=== PATIENT | male | born 1965 | race Two or more races ===

== ENCOUNTER 2016-11-11 19:31 | Inpatient (IN) | payer OTHER ==
[2016-11-11 22:02] VITALS: BMI 19.1
--- NOTE | 2016-11-11 22:06 | HP ---
CIWA Score - CIWA Score Nausea/Vomitin-Mild Nausea/No Vomiting Muscle Tremors: 3 Anxiety: 4-Mod. Anxious/Guarded Agitation: 4-Moderately Restless Paroxysmal Sweats: 2 Orientation: 1-Uncertain about Date Tacttile Disturbances: 1-Very Mild Itch/Numbness Auditory Disturbances: 0-None Visual Disturbances: 1-Very Mild Sensitivity Headache: 0-None Present CIWA-Ar Total Score: 17 Admission ROS BHS - HPI Chief Complaint: WITHDRAWAL SYMPTOMS Allergies/Adverse Reactions: Allergies Allergy/AdvReac Type Severity Reaction Status Date / Time No Known Allergies Allergy Verified 11/11/16 22:03 History of Present Illness: 51 Y.O. MAN WITH AN EXTENSIVE HISTORY OF ALCOHOL DEPENDENCE IS SEEKING DETOX. HE REPORTS HE HAS COMPLETED DETOX AND REHAB BEFORE AT OTHER FACILITIES BUT DOES NOT HAVE A SIGNIFICANT PERIOD OF SOBRIETY. Exam Limitations: Intoxication - Ebola screening Have you traveled outside of the country in the last 21 days: No Have you had contact with anyone from an Ebola affected area: No Do you have a fever: No - Review of Systems Constitutional: Chills, Diaphoresis, Loss of Appetite, Changes in sleep, Unintentional Wgt. Loss EENT: reports: Blurred Vision, Double Vision, Tearing Respiratory: reports: Wheezing Cardiac: reports: No Symptoms Reported GI: reports: Poor Appetite : reports: No Symptoms Reported Musculoskeletal: reports: Back Pain, Joint Pain, Muscle Pain, Muscle Weakness Integumentary: reports: No Symptoms Reported Neuro: reports: Tremors, Weakness, Unsteady Gait Endocrine: reports: No Symptoms Reported Hematology: reports: No Symptoms Reported Psychiatric: reports: Depressed Other Systems: Reviewed and Negative Patient History - Patient Medical History Hx Anemia: No Hx Asthma: Yes Hx Chronic Obstructive Pulmonary Disease (COPD): No Hx Cancer: No Hx Cardiac Disorders: No Hx Congestive Heart Failure: No Hx Hypertension: No Hx Hypercholesterolemia: No Hx Pacemaker: No HX Cerebrovascular Accident: No Hx Seizures: No Hx Dementia: No Hx Diabetes: No Hx Gastrointestinal Disorders: No Hx Liver Disease: No Hx Genitourinary Disorders: No Hx Sexually Transmitted Disorders: No Hx Renal Disease (ESRD): No Hx Thyroid Disease: No Hx Human Immunodeficiency Virus (HIV): Yes Hx Hepatitis C: No Hx Depression: Yes Hx Suicide Attempt: No Hx Bipolar Disorder: No Hx Schizophrenia: No - Patient Surgical History Past Surgical History: Yes Hx Neurologic Surgery: No Hx Cataract Extraction: No Hx Cardiac Surgery: No Hx Lung Surgery: No Hx Breast Surgery: No Hx Breast Biopsy: No Hx Abdominal Surgery: Yes (2 HERNIA REPAIR SX ) Hx Appendectomy: No Hx Cholecystectomy: No Hx Genitourinary Surgery: No Hx Orthopedic Surgery: Yes (LEFT SHOULDER ROTATOR CUFF SX ) Anesthesia Reaction: No - PPD History Previous Implant?: No Documented Results: Negative w/o proof Implanted On Prior [facility] Admission?: No PPD to be Administered?: Yes - Reproductive History Patient is a Female of Child Bearing Age (11 -55 yrs old): No - Smoking Cessation Smoking history: Current every day smoker Have you smoked in the past 12 months: Yes Aproximately how many cigarettes per day: 20 Hx Chewing Tobacco Use: No Initiated information on smoking cessation: Yes 'Breaking Loose' booklet given: 11/11/16 - Substance & Tx. History Hx Alcohol Use: Yes Hx Substance Use: No Substance Use Type: Alcohol Hx Substance Use Treatment: Yes (DETOX AND REHAB ) - Substances Abused Alcohol Route: Oral Frequency: Daily Amount used: 2-3 PINTS OF LIQUOR Age of first use: 16 Date of Last Use: 11/11/16 Family Disease History - Family Disease History Family Disease History: Respiratory: Mother (ASTHMA ) Admission Physical Exam BHS - Vital Signs Vital Signs: Last Vital Signs Temp Pulse Resp BP Pulse Ox 98.2 F 97 H 20 121/74 11/11/16 21:59 11/11/16 21:59 11/11/16 21:59 11/11/16 21:59 - Physical General Appearance: Yes: Intoxicated HEENTM: Yes: Normocephalic, Normal Voice Respiratory: Yes: Chest Non-Tender, No Respiratory Distress, No Accessory Muscle Use, Wheezing, Expiration Neck: Yes: No masses,lesions,Nodules Breast: Yes: Breast Exam Deferred Cardiology: Yes: Regular Rhythm, Regular Rate Abdominal: Yes: Normal Bowel Sounds, Non Tender, Flat, Soft Genitourinary: Yes: Other (NO COMPLAINTS REPORTED) Back: Yes: Normal Inspection Musculoskeletal: Yes: Back pain Extremities: Yes: Normal Inspection, Normal Range of Motion, Non-Tender, Tremors Neurological: Yes: Alert, Confused, Disoriented (TO LOCATION) Integumentary: Yes: Normal Color, Dry, Warm Lymphatic: Yes: Within Normal Limits - Diagnostic (1) Alcohol dependence with uncomplicated withdrawal Current Visit: Yes Status: Chronic (2) HIV (human immunodeficiency virus infection) Current Visit: Yes Status: Chronic (3) Asthma Current Visit: Yes Status: Chronic (4) Nicotine dependence Current Visit: Yes Status: Chronic Cleared for Admission S - Detox or Rehab [facility] Level of Care: Medically Managed Detox Regimen/Protocol: Librsrinivasa
[2016-11-11] MEDS ORDERED: diphenhydrAMINE HCL 50 MG CAPSULE PO PRN (22:36)
[2016-11-11] MEDS ORDERED: P-EPHED 60MG/TRIPROLIDI 2.5MG TABLET PO PRN (22:36)
[2016-11-11] MEDS ORDERED: guaiFENesin/D-METHORPHAN HB 10 ML UNIT-DOSE CUPS PO PRN (22:36)
[2016-11-11] MEDS ORDERED: MENTHOL/PHENOL 1 EACH UD MM PRN (22:36)
[2016-11-11] MEDS ORDERED: MAGNESIUM CITRATE 300 ML BOTTLE PO PRN (22:36)
[2016-11-11] MEDS ORDERED: MAGNESIUM HYDROX 2400MG/30ML ORAL SUSPENSION 30 ML CUP PO PRN (22:36)
[2016-11-11] MEDS ORDERED: NICOTINE POLACRILEX 4 MG GUM BUC PRN (22:36)
[2016-11-11] MEDS ORDERED: MAG HYDROX/AL HYDROX/SIMETH 30 ML UNIT-DOSE CUP PO PRN (22:36)
[2016-11-11] MEDS ORDERED: hydrOXYzine PAMOATE 50 MG CAPSULE (FP) PO PRN (22:36)
[2016-11-11] MEDS ORDERED: chlordiazePOXIDE HCL 25 MG CAPSULE PO PRN (22:36)
[2016-11-11] MEDS ORDERED: LOPERAMIDE HCL 2 MG CAPSULE PO PRN (22:36)
[2016-11-11] MEDS ORDERED: ACETAMINOPHEN 325 MG TABLET (FP) PO PRN (22:36)
[2016-11-11] MEDS ORDERED: chlordiazePOXIDE HCL 25 MG CAPSULE PO ONE (22:36)
[2016-11-11] MEDS: chlordiazePOXIDE HCL 25 MG CAPSULE PO SCH (23:03)
[2016-11-12] MEDS: chlordiazePOXIDE HCL 25 MG CAPSULE PO SCH ×4 (05:49→22:36)
--- NOTE | 2016-11-12 08:58 | CONSULT ---
[facility] Psychiatric Consult - Data Date of interview: 11/12/16 Admission source: [facility] Identifying data: This is 51 years old male with unclear past psychiatric hospitalization history intoxicated with: Alcohol and Nicotine Substance Abuse History: - Smoking Cessation. Smoking history: Current every day smoker. Have you smoked in the past 12 months: Yes. Aproximately how many cigarettes per day: 20. Hx Chewing Tobacco Use: No. Initiated information on smoking cessation: Yes. 'Breaking Loose' booklet given: 11/11/16. - Substance & Tx. History. Hx Alcohol Use: Yes. Hx Substance Use: No. Substance Use Type : Alcohol. Hx Substance Use Treatment: Yes (DETOX AND REHAB ). - Substances Abused. Alcohol. Route: Oral. Frequency: Daily. Amount used: 2-3 PINTS OF LIQUOR. Age of first use: 16. Date of Last Use: 11/11/16 Medical History: Asthma, HIV+, Psychiatric History: Reports anxiety and depression history. Reports no medications taking prior to admission Physical/Sexual Abuse/Trauma History: Denies Additional Comment: Observation. Detox unit care Mental Status Exam - Mental Status Exam Alert and Oriented to: Person Cognitive Function: Fair Patient Appearance: Unkempt Mood: Sad Affect: Flat Patient Behavior: Sedated Speech Pattern: Delayed Voice Loudness: Mildly Soft/Quiet Thought Process: Circumstantial Thought Disorder: Being Controlled Hallucinations: Denies Suicidal Ideation: Denies Homicidal Ideation: Denies Insight/Judgement: Fair Sleep: Difficulty falling asleep Appetite: Weight loss Muscle strength/Tone: Moderate Hypotonicity Gait/Station: Shuffling Additional Comments: Observation. Detox unit care Psychiatric Findings - Problem List ([place] 1, 2,3) (1) Alcohol dependence with uncomplicated withdrawal Current Visit: Yes Status: Chronic (2) Nicotine dependence Current Visit: Yes Status: Chronic (3) Drug-induced mood disorder Current Visit: Yes Status: Suspected - Initial Treatment Plan Initial Treatment Plan: Observation. Detox unit care
[2016-11-12] MEDS: predniSONE 20 MG TABLET (UD) PO SCH (10:13)
[2016-11-12] MEDS: SULFAMETHOXAZOLE/TRIMETHOPRIM 800MG/160MG D.S. TABLET PO SCH (10:13)
[2016-11-12] MEDS: AZITHROMYCIN 250 MG TABLET (FP) PO SCH (10:13)
[2016-11-12] MEDS: PRENATAL VITAMINS W/ FOLIC ACID TABLET (FP) PO SCH (10:13)
[2016-11-12] MEDS: EFAVIRENZ 600 MG TABLET PO SCH (10:13)
[2016-11-12 10:15] LABS: MCH 27.2 pg (25.7-33.7); MCHC 31.7 g/dl (32.0-35.9); MEAN CELL VOLUME 85.7 fl (80-96); MEAN PLT VOLUME 7.2 fl (7.5-11.1); PLATELET COUNT 283 K/MM3 (134-434); RDW 19.7 % (11.9-15.9); WHITE BLOOD COUNT 8.2 K/mm3 (4.0-10.0)
[2016-11-12] MEDS: EMTRICITABINE 200MG/TENOFOVIR 300MG PO SCH (10:16)
[2016-11-12] MEDS: NICOTINE 21 MG/24 HOURS TOPICAL PATCH TD SCH (10:17)
[2016-11-12 10:35] LABS: ALBUMIN 2.9 g/dl (3.4-5.0); ALK PHOS 105 U/L (45-117); ANION GAP 11 (8-16); BILIRUBIN,TOTAL 0.2 mg/dL (0.2-1.0); CALCIUM 8.3 mg/dL (8.5-10.1); CO2 24 mmol/L (21-32); CREATININE 0.8 mg/dL (0.7-1.3); GLUCOSE,RANDOM 74 mg/dL (74-106); SGOT/AST 51 U/L (15-37); SGPT/ALT 56 U/L (12-78); TOT PROT 6.4 g/dl (6.4-8.2)
--- NOTE | 2016-11-12 10:37 | PN ---
S CIWA - CIWA Score Nausea/Vomitin-No Nausea/No Vomiting Muscle Tremors: 4-Moderate,w/Arms Extend Anxiety: 4-Mod. Anxious/Guarded Agitation: 4-Moderately Restless Paroxysmal Sweats: 4-Forehead w/Sweat Beads Orientation: 0-Oriented Tacttile Disturbances: 0-None Auditory Disturbances: 0-None Visual Disturbances: 0-None Headache: 1-Very Mild CIWA-Ar Total Score: 17 BHS Progress Note (SOAP) Subjective: tired sweats irritable interrupted sleep agitation body aches Objective: 11/12/16 10:36 Vital Signs Temperature 96.3 F L 11/12/16 09:51 Pulse Rate 101 H 11/12/16 09:51 Respiratory Rate 18 11/12/16 09:51 Blood Pressure 104/70 11/12/16 09:51 O2 Sat by Pulse Oximetry (%) Laboratory Tests 11/12/16 07:00 WBC 8.2 RBC 3.98 L Hgb 10.8 L Hct 34.2 L MCV 85.7 MCHC 31.7 L RDW 19.7 H Plt Count 283 MPV 7.2 L labs pending awake/alert ambulating no acute distress Assessment: 11/12/16 10:36 withdrawal sx Plan: continue detox increase fluids labs pending
[2016-11-12 13:06] LABS: URINE APPEARANCE CLOUDY; URINE BILIRUBIN NEGATIVE (NEGATIVE); URINE COLOR YELLOW; URINE GLUCOSE (UA) NEGATIVE (NEGATIVE); URINE KETONE NEGATIVE (NEGATIVE); URINE NITRITE NEGATIVE (NEGATIVE); URINE UROBILINOGEN NEGATIVE E.U./dl (0.2-1.0)
[2016-11-12 13:10] LABS: URINE BLOOD 2+ (NEGATIVE); URINE LEUK ESTERASE 3+ (NEGATIVE); URINE PROTEIN 1+ (NEGATIVE)
[2016-11-12 13:12] LABS: URINE BACTERIA FEW /hpf (NONE SEEN); URINE MUCUS RARE; URINE RBC 62 /hpf (0-3); URINE WBC 125 /hpf (3-5)
--- NOTE | 2016-11-12 13:19 | EKG ---
Test Reason : Blood Pressure : / mmHG Vent. Rate : 088 BPM Atrial Rate : 088 BPM P-R Int : 154 ms QRS Dur : 104 ms QT Int : 350 ms P-R-T Axes : 080 045 063 degrees QTc Int : 423 ms NORMAL SINUS RHYTHM POSSIBLE LEFT ATRIAL ENLARGEMENT BORDERLINE ECG NO PREVIOUS ECGS AVAILABLE Confirmed by GENE MAIER MD ([id number]) on 11/12/2016 1:19:27 PM Referred By: Confirmed By:GENE MAIER MD
[2016-11-12] MEDS: IBUPROFEN 400 MG TABLET (FP) PO PRN (18:21)
[2016-11-12] MEDS: THIAMINE HCL 100 MG TABLET (FP) PO SCH (22:37)
[2016-11-13] MEDS: chlordiazePOXIDE HCL 25 MG CAPSULE PO SCH ×3 (05:32→17:58)
[2016-11-13] MEDS: IBUPROFEN 400 MG TABLET (FP) PO PRN (05:35)
--- NOTE | 2016-11-13 10:16 | PN ---
[facility] CIWA - CIWA Score Nausea/Vomitin-No Nausea/No Vomiting Muscle Tremors: 4-Moderate,w/Arms Extend Anxiety: 3 Agitation: 3 Paroxysmal Sweats: 3 Orientation: 0-Oriented Tacttile Disturbances: 0-None Auditory Disturbances: 0-None Visual Disturbances: 0-None Headache: 1-Very Mild CIWA-Ar Total Score: 14 S Progress Note (SOAP) Subjective: body aches sweats headache sweats shakes Objective: 11/13/16 10:16 Vital Signs Temperature 95.9 F L 11/13/16 09:30 Pulse Rate 105 H 11/13/16 09:30 Respiratory Rate 18 11/13/16 09:30 Blood Pressure 134/77 11/13/16 09:30 O2 Sat by Pulse Oximetry (%) Laboratory Tests 11/12/16 11/12/16 11/12/16 07:00 07:00 07:00 WBC 8.2 RBC 3.98 L Hgb 10.8 L Hct 34.2 L MCV 85.7 MCHC 31.7 L RDW 19.7 H Plt Count 283 MPV 7.2 L Sodium 141 Potassium 3.5 Chloride 106 Carbon Dioxide 24 Anion Gap 11 BUN 17 Creatinine 0.8 Creat Clearance w eGFR > 60 Random Glucose 74 Calcium 8.3 L Total Bilirubin 0.2 AST 51 H ALT 56 Alkaline Phosphatase 105 Ammonia 63.86 H Total Protein 6.4 Albumin 2.9 L Urine Color Urine Appearance Urine pH Ur Specific [place] Urine Protein Urine Glucose (UA) Urine Ketones Urine Blood Urine Nitrite Urine Bilirubin Urine Urobilinogen Ur Leukocyte Esterase Urine RBC Urine WBC Urine Bacteria Urine Mucus RPR Titer 11/12/16 11/12/16 07:00 10:20 WBC RBC Hgb Hct MCV MCHC RDW Plt Count MPV Sodium Potassium Chloride Carbon Dioxide Anion Gap BUN Creatinine Creat Clearance w eGFR Random Glucose Calcium Total Bilirubin AST ALT Alkaline Phosphatase Ammonia Total Protein Albumin Urine Color Yellow Urine Appearance Cloudy Urine pH 6.0 Ur Specific [place] 1.016 Urine Protein 1+ H Urine Glucose (UA) Negative Urine Ketones Negative Urine Blood 2+ H Urine Nitrite Negative Urine Bilirubin Negative Urine Urobilinogen Negative Ur Leukocyte Esterase 3+ H Urine RBC 62 Urine WBC 125 Urine Bacteria Few Urine Mucus Rare RPR Titer Nonreactive repeat u/a awake/alert ambulating no acute distress Assessment: 11/13/16 10:16 withdrawal sx Plan: continue detox increase fluids motrin/tylenol prn f/u pending u/a
[2016-11-13] MEDS: NICOTINE 21 MG/24 HOURS TOPICAL PATCH TD SCH (10:19)
[2016-11-13] MEDS: SULFAMETHOXAZOLE/TRIMETHOPRIM 800MG/160MG D.S. TABLET PO SCH (10:19)
[2016-11-13] MEDS: predniSONE 20 MG TABLET (UD) PO SCH (10:19)
[2016-11-13] MEDS: PRENATAL VITAMINS W/ FOLIC ACID TABLET (FP) PO SCH (10:19)
[2016-11-13] MEDS: AZITHROMYCIN 250 MG TABLET (FP) PO SCH (10:19)
[2016-11-13] MEDS: EMTRICITABINE 200MG/TENOFOVIR 300MG PO SCH (10:19)
[2016-11-13] MEDS: EFAVIRENZ 600 MG TABLET PO SCH (10:19)
[2016-11-13 14:27] LABS: URINE APPEARANCE CLOUDY; URINE BILIRUBIN NEGATIVE (NEGATIVE); URINE COLOR YELLOW; URINE GLUCOSE (UA) NEGATIVE (NEGATIVE); URINE KETONE NEGATIVE (NEGATIVE); URINE NITRITE NEGATIVE (NEGATIVE); URINE UROBILINOGEN NEGATIVE E.U./dl (0.2-1.0)
[2016-11-13 14:29] LABS: URINE BLOOD 2+ (NEGATIVE); URINE LEUK ESTERASE 3+ (NEGATIVE); URINE PROTEIN 1+ (NEGATIVE)
[2016-11-13 14:33] LABS: URINE BACTERIA RARE /hpf (NONE SEEN); URINE RBC 139 /hpf (0-3); URINE WBC 123 /hpf (3-5); YEAST RARE
[2016-11-13] MEDS: ALBUTEROL SO4 6.7 GM HFA INHALER IH PRN (16:20)
[2016-11-13] MEDS: THIAMINE HCL 100 MG TABLET (FP) PO SCH (22:18)
[2016-11-13] MEDS: chlordiazePOXIDE 5 MG CAPSULE PO SCH (22:18)
[2016-11-14] MEDS: chlordiazePOXIDE 5 MG CAPSULE PO SCH ×3 (05:12→17:04)
[2016-11-14] MEDS ORDERED: SULFAMETHOXAZOLE/TRIMETHOPRIM 800MG/160MG D.S. TABLET PO SCH (10:00)
[2016-11-14] MEDS: predniSONE 20 MG TABLET (UD) PO SCH (10:08)
[2016-11-14] MEDS: PRENATAL VITAMINS W/ FOLIC ACID TABLET (FP) PO SCH (10:08)
[2016-11-14] MEDS: EFAVIRENZ 600 MG TABLET PO SCH (10:08)
[2016-11-14] MEDS: AZITHROMYCIN 250 MG TABLET (FP) PO SCH (10:08)
[2016-11-14] MEDS: ALBUTEROL SO4 6.7 GM HFA INHALER IH PRN (10:11)
[2016-11-14] MEDS: EMTRICITABINE 200MG/TENOFOVIR 300MG PO SCH (10:11)
--- NOTE | 2016-11-14 10:29 | PN ---
S Progress Note (SOAP) Subjective: ALERT,IRRITABLE,ANXIOUS,INTERRUPTED SLEEP, Objective: 11/14/16 10:27 Laboratory Last Values WBC 8.2 K/mm3 (4.0-10.0) 11/12/16 07:00 RBC 3.98 M/mm3 (4.00-5.60) L 11/12/16 07:00 Hgb 10.8 GM/dL (11.7-16.9) L 11/12/16 07:00 Hct 34.2 % (35.4-49) L 11/12/16 07:00 MCV 85.7 fl (80-96) 11/12/16 07:00 MCHC 31.7 g/dl (32.0-35.9) L 11/12/16 07:00 RDW 19.7 % (11.9-15.9) H 11/12/16 07:00 Plt Count 283 K/MM3 (134-434) 11/12/16 07:00 MPV 7.2 fl (7.5-11.1) L 11/12/16 07:00 Sodium 141 mmol/L (136-145) 11/12/16 07:00 Potassium 3.5 mmol/L (3.5-5.1) 11/12/16 07:00 Chloride 106 mmol/L (98-107) 11/12/16 07:00 Carbon Dioxide 24 mmol/L (21-32) 11/12/16 07:00 Anion Gap 11 (8-16) 11/12/16 07:00 BUN 17 mg/dL (7-18) 11/12/16 07:00 Creatinine 0.8 mg/dL (0.7-1.3) 11/12/16 07:00 Creat Clearance w eGFR > 60 (>60) 11/12/16 07:00 Random Glucose 74 mg/dL (74-106) 11/12/16 07:00 Calcium 8.3 mg/dL (8.5-10.1) L 11/12/16 07:00 Total Bilirubin 0.2 mg/dL (0.2-1.0) 11/12/16 07:00 AST 51 U/L (15-37) H 11/12/16 07:00 ALT 56 U/L (12-78) 11/12/16 07:00 Alkaline Phosphatase 105 U/L (45-117) 11/12/16 07:00 Ammonia 63.86 umol/L (11-32) H 11/12/16 07:00 Total Protein 6.4 g/dl (6.4-8.2) 11/12/16 07:00 Albumin 2.9 g/dl (3.4-5.0) L 11/12/16 07:00 Urine Color Yellow 11/13/16 12:20 Urine Appearance Cloudy 11/13/16 12:20 Urine pH 7.0 (5.0-8.0) 11/13/16 12:20 Ur Specific [place] 1.018 (1.001-1.035) 11/13/16 12:20 Urine Protein 1+ (NEGATIVE) H 11/13/16 12:20 Urine Glucose (UA) Negative (NEGATIVE) 11/13/16 12:20 Urine Ketones Negative (NEGATIVE) 11/13/16 12:20 Urine Blood 2+ (NEGATIVE) H 11/13/16 12:20 Urine Nitrite Negative (NEGATIVE) 11/13/16 12:20 Urine Bilirubin Negative (NEGATIVE) 11/13/16 12:20 Urine Urobilinogen Negative E.U./dl (0.2-1.0) 11/13/16 12:20 Ur Leukocyte Esterase 3+ (NEGATIVE) H 11/13/16 12:20 Urine RBC 139 /hpf (0-3) 11/13/16 12:20 Urine WBC 123 /hpf (3-5) 11/13/16 12:20 Ur Epithelial Cells Rare /hpf (FEW) 11/13/16 12:20 Urine Bacteria Rare /hpf (NONE SEEN) 11/13/16 12:20 Urine Mucus Rare 11/12/16 10:20 Urine Yeast Rare 11/13/16 12:20 RPR Titer Nonreactive (NONREACTIVE) 11/12/16 07:00 Assessment: 11/14/16 10:27 WITHDRAWAL SYMPTOM Plan: CONTINUE DETOX,UTI,URINE FOR C/S,BACTRIM DS 1 TAB PO BID,FLUID,LACTULOSE 20 GRAMS PO TID, DISCHARGE IN AM
[2016-11-14] MEDS: NICOTINE 21 MG/24 HOURS TOPICAL PATCH TD SCH (12:08)
[2016-11-14] MEDS ORDERED: LACTULOSE 20 GM/30 ML UDC (FOR ORAL USE ONLY) PO SCH (14:00)
--- NOTE | 2016-11-14 14:10 | PN ---
S Progress Note Note: patient is stable for discharge today to rehab
--- NOTE | 2016-11-14 14:14 | DS ---
[facility] Detox Discharge Summary Admission Date: 11/11/16 Discharge Date: 11/14/16 - History Present History: Alcohol Dependence Additional Comments: patient is stable to be discharged to rehab Pertinent Past History: asthma hiv - Physical Exam Results Vital Signs: Vital Signs Temperature 97.7 F 11/14/16 06:00 Pulse Rate 83 11/14/16 11:17 Respiratory Rate 18 11/14/16 11:17 Blood Pressure 108/73 11/14/16 11:17 O2 Sat by Pulse Oximetry (%) Pertinent Admission Physical Exam Findings: withdrawal symptom - Treatment Hospital Course: Detox Protocol Followed, Detoxed Safely, Responded well, Discharged Condition Good, Rehab Referral Accepted Patient has Accepted a Rehab Referral to: [facility] - Medication Discharge Medications: Ambulatory Orders Azithromycin [Zithromax -] 250 mg PO DAILY 11/11/16 Efavirenz [Sustiva -] 600 mg PO DAILY 11/11/16 Emtricitabine/Tenofovir (Tdf) [Truvada 200 mg-300 mg Tablet] 1 each PO DAILY Prednisone [Deltasone -] 20 mg PO DAILY 11/11/16 Sulfamethoxazole/Trimethoprim [Sulfamethoxazole-Tmp Ds Tablet] 1 each PO DAILY 11/11/16 - Diagnosis (1) Alcohol dependence with uncomplicated withdrawal Current Visit: Yes Status: Chronic (2) Asthma Current Visit: Yes Status: Chronic (3) HIV (human immunodeficiency virus infection) Current Visit: Yes Status: Chronic (4) Nicotine dependence Current Visit: Yes Status: Chronic (5) UTI (urinary tract infection) Current Visit: Yes Status: Acute - AMA Did Patient Leave Against Medical Advice: No
[2016-11-14 17:54] VITALS: BP 102/64; PULSE 81; TEMP 97.2
[2016-11-14] MEDS ORDERED: chlordiazePOXIDE HCL 10 MG CAPSULE PO SCH (23:00)
== END 2016-11-14 18:15 | disposition other institution (70) | DRG 897 ==
LOC: YASAS 19:31 → Y6N 22:18
PROVIDERS: ADMIT Internal Medicine Addiction Medicine; ATTEND Internal Medicine Addiction Medicine
PROC: HZ2ZZZZ Detoxification Services for Substance Abuse Treatment (ICD-10-PCS; principal; 2016-11-14)
DX: F10.230 Alcohol dependence with withdrawal, uncomplicated (principal); N39.0 Urinary tract infection, site not specified; F17.210 Nicotine dependence, cigarettes, uncomplicated; F19.24 Other psychoactive substance dependence with psychoactive substance-induced mood disorder; J45.909 Unspecified asthma, uncomplicated; Z21 Asymptomatic human immunodeficiency virus [HIV] infection status; Z59.0 Homelessness
CPT/HCPCS: 36415; 80053; 81003; 81015; 82140; 85027; 86593; 87086; 87186; 93005; 93010

== ENCOUNTER 2016-11-14 15:01 | Inpatient (IN) | payer OTHER ==
[2016-11-14 19:50] VITALS: BMI 19.9
[2016-11-14] MEDS ORDERED: diphenhydrAMINE HCL 50 MG CAPSULE PO PRN (21:22)
[2016-11-14] MEDS ORDERED: LOPERAMIDE HCL 2 MG CAPSULE PO PRN (21:22)
[2016-11-14] MEDS ORDERED: MAGNESIUM HYDROX 2400MG/30ML ORAL SUSPENSION 30 ML CUP PO PRN (21:22)
[2016-11-14] MEDS ORDERED: P-EPHED 60MG/TRIPROLIDI 2.5MG TABLET PO PRN (21:22)
[2016-11-14] MEDS ORDERED: MAG HYDROX/AL HYDROX/SIMETH 30 ML UNIT-DOSE CUP PO PRN (21:22)
[2016-11-14] MEDS ORDERED: guaiFENesin/D-METHORPHAN HB 10 ML UNIT-DOSE CUPS PO PRN (21:22)
[2016-11-14] MEDS ORDERED: MAGNESIUM CITRATE 300 ML BOTTLE PO PRN (21:22)
[2016-11-14] MEDS ORDERED: hydrOXYzine PAMOATE 50 MG CAPSULE (FP) PO PRN (21:22)
[2016-11-14] MEDS ORDERED: MENTHOL/PHENOL 1 EACH UD MM PRN (21:22)
--- NOTE | 2016-11-14 21:25 | HP ---
[facility] Rehab Assess/Revision - Admission History Admitted to Rehab from: [facility] Date of Admission to Rehab: 11/14/16 - Vital signs Vital Signs: Vital Signs Period Temp Pulse Resp BP Sys/Shields Pulse Ox Last 24 Hr 98.4 F 94 18 111/70 - Findings Detox History & Physical reviewed: Yes Concur with findings: Yes Comments/Additional Findings: TRANSFERED FROM DETOX TO REHAB ADMISSION, PER PROTOCOL.
[2016-11-14] MEDS: THIAMINE HCL 100 MG TABLET (FP) PO SCH (22:15)
[2016-11-14] MEDS: SULFAMETHOXAZOLE/TRIMETHOPRIM 800MG/160MG D.S. TABLET PO SCH (22:15)
[2016-11-14] MEDS: LACTULOSE 20 GM/30 ML UDC (FOR ORAL USE ONLY) PO SCH (22:15)
[2016-11-15] MEDS: LACTULOSE 20 GM/30 ML UDC (FOR ORAL USE ONLY) PO SCH ×3 (06:07→22:20)
[2016-11-15] MEDS: AZITHROMYCIN 250 MG TABLET (FP) PO SCH (10:11)
[2016-11-15] MEDS: predniSONE 20 MG TABLET (UD) PO SCH (10:11)
[2016-11-15] MEDS: PRENATAL VITAMINS W/ FOLIC ACID TABLET (FP) PO SCH (10:11)
[2016-11-15] MEDS: SULFAMETHOXAZOLE/TRIMETHOPRIM 800MG/160MG D.S. TABLET PO SCH ×2 (10:11→22:18)
[2016-11-15] MEDS: EFAVIRENZ 600 MG TABLET PO SCH (10:11)
[2016-11-15] MEDS: EMTRICITABINE 200MG/TENOFOVIR 300MG PO SCH (10:12)
[2016-11-15] MEDS: IBUPROFEN 400 MG TABLET (FP) PO PRN ×2 (10:14→22:19)
[2016-11-15] MEDS: MOMETASONE FUROATE 110 MCG/IH INHALER IH SCH ×2 (14:51→22:15)
[2016-11-15] MEDS ORDERED: PT OWN MED DRAWER 7, Y5N ONE (20:10)
[2016-11-15] MEDS: THIAMINE HCL 100 MG TABLET (FP) PO SCH (22:18)
[2016-11-16] MEDS: LACTULOSE 20 GM/30 ML UDC (FOR ORAL USE ONLY) PO SCH ×3 (06:07→21:50)
[2016-11-16] MEDS: ALBUTEROL SO4 6.7 GM HFA INHALER IH PRN (08:31)
[2016-11-16] MEDS: IBUPROFEN 400 MG TABLET (FP) PO PRN (08:33)
[2016-11-16] MEDS: MOMETASONE FUROATE 110 MCG/IH INHALER IH SCH ×2 (10:06→21:50)
[2016-11-16] MEDS: PRENATAL VITAMINS W/ FOLIC ACID TABLET (FP) PO SCH (10:06)
[2016-11-16] MEDS: EMTRICITABINE 200MG/TENOFOVIR 300MG PO SCH (10:09)
[2016-11-16] MEDS: EFAVIRENZ 600 MG TABLET PO SCH (10:09)
[2016-11-16] MEDS: AZITHROMYCIN 250 MG TABLET (FP) PO SCH (10:10)
[2016-11-16] MEDS: SULFAMETHOXAZOLE/TRIMETHOPRIM 800MG/160MG D.S. TABLET PO SCH ×2 (10:10→21:50)
[2016-11-16] MEDS: predniSONE 20 MG TABLET (UD) PO SCH (10:10)
[2016-11-16] MEDS ORDERED: IBUPROFEN 600 MG TABLET (FP) PO PRN (11:24)
[2016-11-16] MEDS ORDERED: IBUPROFEN 600 MG TABLET (FP) PO ONE (12:00)
[2016-11-16] MEDS: THIAMINE HCL 100 MG TABLET (FP) PO SCH (21:50)
[2016-11-17] MEDS: LACTULOSE 20 GM/30 ML UDC (FOR ORAL USE ONLY) PO SCH ×3 (06:11→21:15)
--- NOTE | 2016-11-17 07:27 | HP ---
Psychiatrist Admission - Data Date of interview: 11/17/16 Admission source: 6N/ACI Identifying data: This is the first [facility] admission for this 51 years old male, father of 2 children, unemployed on SSD, homeless seeking rehab treatment for alcohol and marijuana Medical History: Significant for Asthma, HIV+, S/P bilateral Inguinal Hernia and S/P rotator cuff repair left shoulder. Smokes cigarettes 1 ppd Psychiatric History: Denies history of previous psychiatric treatment Physical/Sexual Abuse/Trauma History: Denies history of physical, sexual abuse as well as DV relationship Additional Comment: Reports history of 5-7 midemeanor arrests. Denies being on probation at Vital Signs: Vital Signs - 24 hr 11/17/16 11/17/16 00:30 03:30 Respiratory 18 18 Rate Allergies/Adverse Reactions: Allergies Allergy/AdvReac Type Severity Reaction Status Date / Time No Known Allergies Allergy Verified 11/11/16 22:03 Date of last physical exam: 11/11/16 Concur with the findings of this exam: Yes - Substance Abuse/Tx History Hx Alcohol Use: Yes Hx Substance Use: Yes Substance Use Type: Alcohol (Started drinking alcohol at age 16, consumes 2-3 pints of vodka/bicardi daily. Last drink on 11/11/16), Marijuana (Started smoking marijuana at age 16, consumes 2 bags daily. Last smoked 2 weeks ago) Hx Substance Use Treatment: Yes (5-7 previous inpt detox & 4-5 inpt rehab) - Admission Criteria Previous failed treatment: No Poor recovery environment: Yes Comorbidities: Yes Lacks judgement: Yes Mental Status Exam - Mental Status Exam Alert and Oriented to: Time, Place, Person Cognitive Function: Fair Patient Appearance: Well Groomed Mood: Anxious Affect: Appropriate Patient Behavior: Cooperative Speech Pattern: Clear Voice Loudness: Normal Thought Process: Intact Thought Disorder: Not Present Hallucinations: Denies Suicidal Ideation: Denies Homicidal Ideation: Denies Insight/Judgement: Fair Sleep: Poorly Appetite: Poor Muscle strength/Tone: Normal Gait/Station: Normal Psychiatric Findings - Problem List ([place] 1, 2,3) (1) Alcohol dependence with uncomplicated withdrawal Current Visit: No Status: Chronic (2) Cannabis dependence Current Visit: Yes Status: Acute (3) Nicotine dependence Current Visit: Yes Status: Acute (4) Substance induced mood disorder Current Visit: Yes Status: Acute (5) Asthma Current Visit: No Status: Chronic (6) HIV (human immunodeficiency virus infection) Current Visit: No Status: Chronic - Initial Treatment Plan Initial Treatment Plan: 1) Start Trazadone 100 mg po HS for insomnia. 2) Monitor progress
[2016-11-17] MEDS: PRENATAL VITAMINS W/ FOLIC ACID TABLET (FP) PO SCH (10:05)
[2016-11-17] MEDS: predniSONE 20 MG TABLET (UD) PO SCH (10:05)
[2016-11-17] MEDS: AZITHROMYCIN 250 MG TABLET (FP) PO SCH (10:05)
[2016-11-17] MEDS: EFAVIRENZ 600 MG TABLET PO SCH (10:05)
[2016-11-17] MEDS: SULFAMETHOXAZOLE/TRIMETHOPRIM 800MG/160MG D.S. TABLET PO SCH (10:06)
[2016-11-17] MEDS: EMTRICITABINE 200MG/TENOFOVIR 300MG PO SCH (10:06)
[2016-11-17] MEDS: MOMETASONE FUROATE 110 MCG/IH INHALER IH SCH ×2 (10:06→21:16)
[2016-11-17] MEDS: ACETAMINOPHEN 325 MG TABLET (FP) PO PRN ×2 (10:09→20:02)
--- NOTE | 2016-11-17 14:35 | PN ---
S Progress Note Note: pain in right groin and suprapubic area urine for c/s postive for e coli sensitive to ampicillin resist to bactrim d/c bactrim amoxicillin 500 mgs po tid for 10 days scars in both groin no hernia to increased motrin to 800 mgs po q 8hrs prn close monitoring encourage fluid
[2016-11-17] MEDS ORDERED: EFAVIRENZ 600 MG PO SCH (15:24)
[2016-11-17] MEDS: AMOXICILLIN 500 MG CAPSULE (FP) PO SCH ×2 (16:04→21:15)
[2016-11-17] MEDS: IBUPROFEN 400 MG TABLET (FP) PO PRN (16:05)
[2016-11-17] MEDS: traZODone HCL 100 MG TABLET (FP) PO SCH ×2 (20:02→21:16)
[2016-11-17] MEDS: THIAMINE HCL 100 MG TABLET (FP) PO SCH (21:15)
[2016-11-17] MEDS: ALBUTEROL SO4 6.7 GM HFA INHALER IH PRN (21:16)
[2016-11-18] MEDS: IBUPROFEN 400 MG TABLET (FP) PO PRN (06:20)
[2016-11-18] MEDS: AMOXICILLIN 500 MG CAPSULE (FP) PO SCH ×2 (06:20→14:12)
[2016-11-18] MEDS: LACTULOSE 20 GM/30 ML UDC (FOR ORAL USE ONLY) PO SCH ×2 (06:59→14:12)
[2016-11-18 07:27] VITALS: BP 90/57; PULSE 91; TEMP 98
[2016-11-18] MEDS ORDERED: [UNRECOGNIZED DRUG - OTHER] PO SCH (10:00)
[2016-11-18] MEDS ORDERED: EMTRICITABINE PO SCH (10:00)
[2016-11-18] MEDS ORDERED: EFAVIRENZ 600 MG PO SCH (10:00)
[2016-11-18] MEDS: PRENATAL VITAMINS W/ FOLIC ACID TABLET (FP) PO SCH (10:11)
[2016-11-18] MEDS: AZITHROMYCIN 250 MG TABLET (FP) PO SCH (10:11)
[2016-11-18] MEDS: predniSONE 20 MG TABLET (UD) PO SCH (10:11)
[2016-11-18] MEDS: MOMETASONE FUROATE 110 MCG/IH INHALER IH SCH (10:11)
[2016-11-18] MEDS ORDERED: PT OWN MED DRAWER 7, Y5N ONE (17:57)
--- NOTE | 2016-11-18 20:10 | PN ---
[facility] Progress Note Note: RECEIVED NURSE REPORTS THAT THE PATIENT WANTS TO BE DISCHARGED EARLY WOULD LIKE TO LEAVE THE UNIT TODAY PATIENT AGREES TO CONSIDER FOLLOW UP CARE PER COUNSELOR ARRANGED RECOMMEND INFORM ATTENDING PSYCHIATRIST
== END 2016-11-18 18:35 | disposition left against medical advice (07) | DRG 894 ==
LOC: YASAS 15:01 → Y3W 18:49
PROVIDERS: ADMIT Psychiatry & Neurology Psychiatry; ATTEND Psychiatry & Neurology Psychiatry
PROC: HZ42ZZZ Group Counseling for Substance Abuse Treatment, Cognitive-Behavioral (ICD-10-PCS; principal; 2016-11-18)
DX: F10.230 Alcohol dependence with withdrawal, uncomplicated (principal); F12.20 Cannabis dependence, uncomplicated; F17.210 Nicotine dependence, cigarettes, uncomplicated; F19.24 Other psychoactive substance dependence with psychoactive substance-induced mood disorder; Z21 Asymptomatic human immunodeficiency virus [HIV] infection status; J45.909 Unspecified asthma, uncomplicated; Z59.0 Homelessness

== ENCOUNTER 2016-12-01 10:59 | Inpatient (IN) | payer OTHER ==
[2016-12-01 13:05] VITALS: BMI 19.5
--- NOTE | 2016-12-01 16:01 | HP ---
CIWA Score - CIWA Score Nausea/Vomitin Muscle Tremors: 3 Anxiety: 3 Agitation: 3 Paroxysmal Sweats: 2 Orientation: 0-Oriented Tacttile Disturbances: 2-Mild Itch/Numbness/Burn Auditory Disturbances: 2-Mild Harshness/Frighten Visual Disturbances: 2-Mild Sensitivity Headache: 2-Mild CIWA-Ar Total Score: 22 Admission ROS BHS - HPI Chief Complaint: I NEED HELP TO STOP DRINKING ALCOHOL AND COCAINE Allergies/Adverse Reactions: Allergies Allergy/AdvReac Type Severity Reaction Status Date / Time No Known Allergies Allergy Verified 12/01/16 14:54 History of Present Illness: THIS 51 YEARS OLD MALE WITH ALCOHOL AND COCAINE DEPENDENCE,WITHDRAWAL SYMPTOM, LAST DETOX 11/11/16 TO11/14/16,LAST REHAB 11/14/16 TO 11/18/16 NOT COMPLETED ASTHMA AIDS 2001 NO SIGNIFICANT PERIOD OF SOBRIETY WEIGHT LOSS NICOTINE DEPENDENCE Exam Limitations: No Limitations - Ebola screening Have you traveled outside of the country in the last 21 days: No (N) Have you had contact with anyone from an Ebola affected area: No Have you been sick,other than usual withdrawal symptoms: No Do you have a fever: No - Review of Systems Constitutional: Loss of Appetite, Malaise, Night Sweats, Changes in sleep, Weakness, Unintentional Wgt. Loss EENT: reports: Nose Congestion Respiratory: reports: No Symptoms reported, Other (ASTHMA) Cardiac: reports: No Symptoms Reported GI: reports: Nausea, Vomiting, Abdominal cramping : reports: No Symptoms Reported Musculoskeletal: reports: Back Pain, Muscle Pain Integumentary: reports: Dryness Neuro: reports: Headache, Tremors Endocrine: reports: No Symptoms Reported Hematology: reports: Other (AIDS) Psychiatric: reports: No Sypmtoms Reported Patient History - Patient Medical History Hx Anemia: No Hx Asthma: Yes (ON ALBUTEROL INHALER) Hx Chronic Obstructive Pulmonary Disease (COPD): No Hx Cancer: No Hx Cardiac Disorders: No Hx Congestive Heart Failure: No Hx Hypertension: No Hx Hypercholesterolemia: No Hx Pacemaker: No HX Cerebrovascular Accident: No Hx Seizures: No Hx Dementia: No Hx Diabetes: No Hx Gastrointestinal Disorders: No Hx Liver Disease: No Hx Genitourinary Disorders: No Hx Sexually Transmitted Disorders: No Hx Renal Disease (ESRD): No Hx Thyroid Disease: No Hx Human Immunodeficiency Virus (HIV): Yes (SINCE 2001) Hx Hepatitis C: No Hx Depression: No Hx Suicide Attempt: No Hx Bipolar Disorder: No Hx Schizophrenia: No Other Medical History: NO SUICIDAL,NO HOMICIDAL - Patient Surgical History Past Surgical History: Yes Hx Neurologic Surgery: No Hx Cataract Extraction: No Hx Cardiac Surgery: No Hx Lung Surgery: No Hx Breast Surgery: No Hx Breast Biopsy: No Hx Abdominal Surgery: Yes (2 HERNIA REPAIR SX ) Hx Appendectomy: No Hx Cholecystectomy: No Hx Genitourinary Surgery: No Hx Orthopedic Surgery: Yes (LEFT SHOULDER ROTATOR CUFF SX ) Anesthesia Reaction: No - PPD History Previous Implant?: Yes Documented Results: Negative w/proof Implanted On Prior [facility] Admission?: Yes Date: 11/13/16 Results: 0 MM PPD to be Administered?: No - Smoking Cessation Smoking history: Current every day smoker Have you smoked in the past 12 months: Yes Aproximately how many cigarettes per day: 10 Hx Chewing Tobacco Use: No Initiated information on smoking cessation: Yes 'Breaking Loose' booklet given: 12/01/16 - Substance & Tx. History Hx Alcohol Use: Yes Hx Substance Use: No Substance Use Type: Alcohol, Marijuana Hx Substance Use Treatment: Yes ([facility] 11/11/16 TO 11/14/16,REHAB 11/14/16 TO 04/27) - Substances Abused Alcohol Route: Oral Frequency: Daily Amount used: 2-3 pints liquor Age of first use: 16 Date of Last Use: 12/01/16 [place] Route: Smoking Frequency: Daily Amount used: 20$ Age of first use: 16 Date of Last Use: 11/30/16 Family Disease History - Family Disease History Family Disease History: Respiratory: Mother (ASTHMA ) Admission Physical Exam [facility] - Vital Signs Vital Signs: Vital Signs - 24 hr 12/01/16 13:03 Temperature 95.6 F L Pulse Rate 126 H Respiratory 20 Rate Blood Pressure 117/71 - Physical General Appearance: Yes: Moderate Distress, Tremorous, Irritable, Sweating, Anxious HEENTM: Yes: Nasal Congestion, Rhinorrhea Respiratory: Yes: Wheezing Neck: Yes: Within Normal Limits Breast: Yes: Within Normal Limits Cardiology: Yes: Tachycardia Abdominal: Yes: Within Normal Limits, Normal Bowel Sounds, Non Tender, Flat, Soft, Surgical Scar Genitourinary: Yes: Within Normal Limits Musculoskeletal: Yes: Back pain, Muscle Pain Extremities: Yes: Tremors Neurological: Yes: Within Normal Limits, corrosion control technician II-XII NML intact, Fully Oriented, Alert Integumentary: Yes: Dry Lymphatic: Yes: Within Normal Limits - Diagnostic (1) Cannabis dependence Current Visit: No Status: Acute (2) Nicotine dependence Current Visit: No Status: Acute (3) Alcohol dependence with uncomplicated withdrawal Current Visit: No Status: Chronic (4) Asthma Current Visit: No Status: Chronic (5) AIDS Current Visit: Yes Status: Acute (6) Weight loss Current Visit: Yes Status: Acute Cleared for Admission [facility] - Detox or Rehab [facility] Level of Care: Medically Managed Detox Regimen/Protocol: Librium [facility] Breath Alcohol Content Breath Alcohol Content: 0.125 Urine Drug Screen - Results Drug Screen Negative: No Urine Drug Screen Results: THC-Marijuana, BZO-Benzodiazepines
[2016-12-01] MEDS ORDERED: MAGNESIUM HYDROX 2400MG/30ML ORAL SUSPENSION 30 ML CUP PO PRN (16:20)
[2016-12-01] MEDS ORDERED: MAGNESIUM CITRATE 300 ML BOTTLE PO PRN (16:20)
[2016-12-01] MEDS ORDERED: guaiFENesin/D-METHORPHAN HB 10 ML UNIT-DOSE CUPS PO PRN (16:20)
[2016-12-01] MEDS ORDERED: ACETAMINOPHEN 325 MG TABLET (FP) PO PRN (16:20)
[2016-12-01] MEDS ORDERED: chlordiazePOXIDE HCL 25 MG CAPSULE PO PRN (16:20)
[2016-12-01] MEDS ORDERED: MAG HYDROX/AL HYDROX/SIMETH 30 ML UNIT-DOSE CUP PO PRN (16:20)
[2016-12-01] MEDS ORDERED: LOPERAMIDE HCL 2 MG CAPSULE PO PRN (16:20)
[2016-12-01] MEDS ORDERED: MENTHOL/PHENOL 1 EACH UD MM PRN (16:20)
[2016-12-01] MEDS ORDERED: IBUPROFEN 400 MG TABLET (FP) PO PRN (16:20)
[2016-12-01] MEDS ORDERED: hydrOXYzine PAMOATE 50 MG CAPSULE (FP) PO PRN (16:20)
[2016-12-01] MEDS ORDERED: P-EPHED 60MG/TRIPROLIDI 2.5MG TABLET PO PRN (16:20)
[2016-12-01] MEDS ORDERED: ALBUTEROL SO4 2.5/IPRATROPIUM 0.5 INH SOL 3 ML VIAL.NEB. NEB PRN (16:26)
[2016-12-01] MEDS ORDERED: chlordiazePOXIDE HCL 25 MG CAPSULE PO ONE (16:45)
[2016-12-01] MEDS: ALBUTEROL SO4 6.7 GM HFA INHALER IH PRN ×2 (18:05→22:16)
[2016-12-01] MEDS: chlordiazePOXIDE HCL 25 MG CAPSULE PO SCH (22:16)
[2016-12-01] MEDS: SULFAMETHOXAZOLE/TRIMETHOPRIM 800MG/160MG D.S. TABLET PO SCH (22:16)
[2016-12-01] MEDS: THIAMINE HCL 100 MG TABLET (FP) PO SCH (22:16)
[2016-12-01] MEDS: diphenhydrAMINE HCL 50 MG CAPSULE PO PRN (22:17)
[2016-12-01 23:22] LABS: URINE APPEARANCE CLOUDY; URINE BILIRUBIN NEGATIVE (NEGATIVE); URINE COLOR YELLOW; URINE GLUCOSE (UA) NEGATIVE (NEGATIVE); URINE KETONE NEGATIVE (NEGATIVE); URINE NITRITE NEGATIVE (NEGATIVE); URINE UROBILINOGEN NEGATIVE E.U./dl (0.2-1.0)
[2016-12-01 23:23] LABS: URINE BLOOD 2+ (NEGATIVE)
[2016-12-01 23:24] LABS: URINE LEUK ESTERASE 3+ (NEGATIVE); URINE PROTEIN 1+ (NEGATIVE)
[2016-12-01 23:46] LABS: URINE BACTERIA FEW /hpf (NONE SEEN); URINE RBC 10 /hpf (0-3); URINE WBC 117 /hpf (3-5); YEAST FEW
[2016-12-02] MEDS: chlordiazePOXIDE HCL 25 MG CAPSULE PO SCH ×4 (05:48→22:17)
[2016-12-02] MEDS: PRENATAL VITAMINS W/ FOLIC ACID TABLET (FP) PO SCH (10:27)
[2016-12-02] MEDS: AZITHROMYCIN 250 MG TABLET (FP) PO SCH (10:27)
[2016-12-02] MEDS: predniSONE 20 MG TABLET (UD) PO SCH (10:27)
[2016-12-02] MEDS: SULFAMETHOXAZOLE/TRIMETHOPRIM 800MG/160MG D.S. TABLET PO SCH ×2 (10:27→22:17)
[2016-12-02] MEDS: EFAVIRENZ 600 MG TABLET PO SCH (10:27)
[2016-12-02] MEDS: EMTRICITABINE 200MG/TENOFOVIR 300MG PO SCH (10:28)
[2016-12-02 13:24] LABS: MCH 26.2 pg (25.7-33.7); MCHC 31.3 g/dl (32.0-35.9); MEAN CELL VOLUME 83.7 fl (80-96); MEAN PLT VOLUME 7.7 fl (7.5-11.1); PLATELET COUNT 325 K/MM3 (134-434); RDW 21.1 % (11.9-15.9); WHITE BLOOD COUNT 6.2 K/mm3 (4.0-10.0)
[2016-12-02 13:40] LABS: ALBUMIN 2.9 g/dl (3.4-5.0); ANION GAP 9 (8-16); CALCIUM 9.1 mg/dL (8.5-10.1); CO2 28 mmol/L (21-32); GLUCOSE,RANDOM 129 mg/dL (74-106)
[2016-12-02 13:45] LABS: ALK PHOS 225 U/L (45-117); BILIRUBIN,TOTAL 0.5 mg/dL (0.2-1.0); CREATININE 0.9 mg/dL (0.7-1.3); SGOT/AST 80 U/L (15-37); SGPT/ALT 59 U/L (12-78); TOT PROT 6.6 g/dl (6.4-8.2)
--- NOTE | 2016-12-02 16:01 | PN ---
S CIWA - CIWA Score Nausea/Vomitin-Mild Nausea/No Vomiting Muscle Tremors: 4-Moderate,w/Arms Extend Anxiety: 3 Agitation: 3 Paroxysmal Sweats: 3 Orientation: 0-Oriented Tacttile Disturbances: 0-None Auditory Disturbances: 0-None Visual Disturbances: 0-None Headache: 0-None Present CIWA-Ar Total Score: 14 BHS Progress Note (SOAP) Subjective: anxiety,tremors,interrupted sleep,restless,sweating. Objective: 12/02/16 15:59 Vital Signs - 8 hr 12/02/16 12/02/16 10:40 14:13 Temperature 95.9 F L 96.8 F L Pulse Rate 106 H 100 H Respiratory 16 18 Rate Blood Pressure 113/84 113/85 Laboratory Tests 12/01/16 12/02/16 12/02/16 18:00 06:00 09:20 WBC 6.2 RBC 3.92 L Hgb 10.3 L Hct 32.8 L MCV 83.7 MCHC 31.3 L RDW 21.1 H Plt Count 325 MPV 7.7 Sodium Potassium Chloride Carbon Dioxide Anion Gap BUN Creatinine Creat Clearance w eGFR Random Glucose Calcium Total Bilirubin AST ALT Alkaline Phosphatase Total Protein Albumin Urine Color Yellow Urine Appearance Cloudy Urine pH 7.0 Ur Specific [place] 1.014 Urine Protein 1+ H Urine Glucose (UA) Negative Urine Ketones Negative Urine Blood 2+ H Urine Nitrite Negative Urine Bilirubin Negative Urine Urobilinogen Negative Ur Leukocyte Esterase 3+ H Urine RBC 10 Urine WBC 117 Ur Epithelial Cells Rare Urine Bacteria Few Urine Yeast Few RPR Titer Nonreactive 12/02/16 09:20 WBC RBC Hgb Hct MCV MCHC RDW Plt Count MPV Sodium 139 Potassium 4.0 Chloride 102 Carbon Dioxide 28 Anion Gap 9 BUN 17 Creatinine 0.9 Creat Clearance w eGFR > 60 Random Glucose 129 H D Calcium 9.1 Total Bilirubin 0.5 D AST 80 H D ALT 59 Alkaline Phosphatase 225 H D Total Protein 6.6 Albumin 2.9 L Urine Color Urine Appearance Urine pH Ur Specific [place] Urine Protein Urine Glucose (UA) Urine Ketones Urine Blood Urine Nitrite Urine Bilirubin Urine Urobilinogen Ur Leukocyte Esterase Urine RBC Urine WBC Ur Epithelial Cells Urine Bacteria Urine Yeast RPR Titer labs noted noted,we'll repeat U/A Assessment: 12/02/16 16:00 Withdrawal sx. Plan: Continue detox
--- NOTE | 2016-12-02 21:36 | EKG ---
Test Reason : Blood Pressure : / mmHG Vent. Rate : 110 BPM Atrial Rate : 110 BPM P-R Int : 148 ms QRS Dur : 090 ms QT Int : 338 ms P-R-T Axes : 074 036 065 degrees QTc Int : 457 ms SINUS TACHYCARDIA OTHERWISE NORMAL ECG WHEN COMPARED WITH ECG OF 11-NOV-2016 23:34, VENT. RATE HAS INCREASED Confirmed by RUDDY JADE MD ([id number]) on 12/02/2016 9:35:43 PM Referred By: Confirmed By:RUDDY JADE MD
[2016-12-02] MEDS: diphenhydrAMINE HCL 50 MG CAPSULE PO PRN (22:17)
[2016-12-02] MEDS: THIAMINE HCL 100 MG TABLET (FP) PO SCH (22:17)
[2016-12-02] MEDS: ALBUTEROL SO4 6.7 GM HFA INHALER IH PRN (22:18)
[2016-12-03] MEDS: chlordiazePOXIDE HCL 25 MG CAPSULE PO SCH ×3 (05:41→17:30)
[2016-12-03] MEDS: EFAVIRENZ 600 MG TABLET PO SCH (10:27)
[2016-12-03] MEDS: AZITHROMYCIN 250 MG TABLET (FP) PO SCH (10:27)
[2016-12-03] MEDS: predniSONE 20 MG TABLET (UD) PO SCH (10:27)
[2016-12-03] MEDS: SULFAMETHOXAZOLE/TRIMETHOPRIM 800MG/160MG D.S. TABLET PO SCH ×2 (10:27→22:32)
[2016-12-03] MEDS: PRENATAL VITAMINS W/ FOLIC ACID TABLET (FP) PO SCH (10:27)
[2016-12-03] MEDS: EMTRICITABINE 200MG/TENOFOVIR 300MG PO SCH (10:27)
[2016-12-03] MEDS: ALBUTEROL SO4 6.7 GM HFA INHALER IH PRN (10:29)
--- NOTE | 2016-12-03 17:38 | PN ---
[facility] CIWA - CIWA Score Nausea/Vomitin-No Nausea/No Vomiting Muscle Tremors: 3 Anxiety: 3 Agitation: 4-Moderately Restless Paroxysmal Sweats: 3 Orientation: 0-Oriented Tacttile Disturbances: 0-None Auditory Disturbances: 0-None Visual Disturbances: 0-None Headache: 0-None Present CIWA-Ar Total Score: 13 BHS Progress Note (SOAP) Subjective: Anxiety,tremors,sweating,restless,interrupted sleep Objective: 12/03/16 17:36 Vital Signs - 8 hr 12/03/16 12/03/16 12/03/16 10:37 13:34 17:09 Temperature 95.8 F L 96.3 F L 96.5 F L Pulse Rate 108 H 112 H 94 H Respiratory 20 18 16 Rate Blood Pressure 100/77 88/70 91/65 Laboratory Tests 12/01/16 12/02/16 12/02/16 18:00 06:00 09:20 WBC 6.2 RBC 3.92 L Hgb 10.3 L Hct 32.8 L MCV 83.7 MCHC 31.3 L RDW 21.1 H Plt Count 325 MPV 7.7 Sodium Potassium Chloride Carbon Dioxide Anion Gap BUN Creatinine Creat Clearance w eGFR Random Glucose Calcium Total Bilirubin AST ALT Alkaline Phosphatase Total Protein Albumin Urine Color Yellow Urine Appearance Cloudy Urine pH 7.0 Ur Specific [place] 1.014 Urine Protein 1+ H Urine Glucose (UA) Negative Urine Ketones Negative Urine Blood 2+ H Urine Nitrite Negative Urine Bilirubin Negative Urine Urobilinogen Negative Ur Leukocyte Esterase 3+ H Urine RBC 10 Urine WBC 117 Ur Epithelial Cells Rare Urine Bacteria Few Urine Yeast Few RPR Titer Nonreactive 12/02/16 09:20 WBC RBC Hgb Hct MCV MCHC RDW Plt Count MPV Sodium 139 Potassium 4.0 Chloride 102 Carbon Dioxide 28 Anion Gap 9 BUN 17 Creatinine 0.9 Creat Clearance w eGFR > 60 Random Glucose 129 H D Calcium 9.1 Total Bilirubin 0.5 D AST 80 H D ALT 59 Alkaline Phosphatase 225 H D Total Protein 6.6 Albumin 2.9 L Urine Color Urine Appearance Urine pH Ur Specific [place] Urine Protein Urine Glucose (UA) Urine Ketones Urine Blood Urine Nitrite Urine Bilirubin Urine Urobilinogen Ur Leukocyte Esterase Urine RBC Urine WBC Ur Epithelial Cells Urine Bacteria Urine Yeast RPR Titer labs noted Assessment: 12/03/16 17:37 Withdrawal sx. Plan: continue detox
[2016-12-03] MEDS: chlordiazePOXIDE 5 MG CAPSULE PO SCH (22:31)
[2016-12-03] MEDS: THIAMINE HCL 100 MG TABLET (FP) PO SCH (22:32)
[2016-12-03] MEDS: diphenhydrAMINE HCL 50 MG CAPSULE PO PRN (22:33)
[2016-12-04] MEDS: chlordiazePOXIDE 5 MG CAPSULE PO SCH ×3 (05:38→17:22)
[2016-12-04] MEDS: SULFAMETHOXAZOLE/TRIMETHOPRIM 800MG/160MG D.S. TABLET PO SCH ×2 (10:50→22:20)
[2016-12-04] MEDS: EFAVIRENZ 600 MG TABLET PO SCH (10:50)
[2016-12-04] MEDS: AZITHROMYCIN 250 MG TABLET (FP) PO SCH (10:50)
[2016-12-04] MEDS: predniSONE 20 MG TABLET (UD) PO SCH (10:51)
[2016-12-04] MEDS: EMTRICITABINE 200MG/TENOFOVIR 300MG PO SCH (10:51)
[2016-12-04] MEDS: PRENATAL VITAMINS W/ FOLIC ACID TABLET (FP) PO SCH (10:51)
--- NOTE | 2016-12-04 11:50 | PN ---
BHS Progress Note (SOAP) Subjective: anxiety,tremors,sweating,interrupted sleep,restless Objective: 12/04/16 11:47 Vital Signs - 8 hr 12/04/16 12/04/16 06:40 09:41 Temperature 96.5 F L 96.6 F L Pulse Rate 107 H 101 H Respiratory 16 18 Rate Blood Pressure 100/77 91/70 Laboratory Tests 12/01/16 12/02/16 12/02/16 18:00 06:00 09:20 WBC 6.2 RBC 3.92 L Hgb 10.3 L Hct 32.8 L MCV 83.7 MCHC 31.3 L RDW 21.1 H Plt Count 325 MPV 7.7 Sodium Potassium Chloride Carbon Dioxide Anion Gap BUN Creatinine Creat Clearance w eGFR Random Glucose Calcium Total Bilirubin AST ALT Alkaline Phosphatase Total Protein Albumin Urine Color Yellow Urine Appearance Cloudy Urine pH 7.0 Ur Specific [place] 1.014 Urine Protein 1+ H Urine Glucose (UA) Negative Urine Ketones Negative Urine Blood 2+ H Urine Nitrite Negative Urine Bilirubin Negative Urine Urobilinogen Negative Ur Leukocyte Esterase 3+ H Urine RBC 10 Urine WBC 117 Ur Epithelial Cells Rare Urine Bacteria Few Urine Yeast Few RPR Titer Nonreactive 12/02/16 09:20 WBC RBC Hgb Hct MCV MCHC RDW Plt Count MPV Sodium 139 Potassium 4.0 Chloride 102 Carbon Dioxide 28 Anion Gap 9 BUN 17 Creatinine 0.9 Creat Clearance w eGFR > 60 Random Glucose 129 H D Calcium 9.1 Total Bilirubin 0.5 D AST 80 H D ALT 59 Alkaline Phosphatase 225 H D Total Protein 6.6 Albumin 2.9 L Urine Color Urine Appearance Urine pH Ur Specific [place] Urine Protein Urine Glucose (UA) Urine Ketones Urine Blood Urine Nitrite Urine Bilirubin Urine Urobilinogen Ur Leukocyte Esterase Urine RBC Urine WBC Ur Epithelial Cells Urine Bacteria Urine Yeast RPR Titer labs noted repeat u/a Assessment: 12/04/16 11:49 withdrawal sx. Plan: Continue detox
[2016-12-04] MEDS: chlordiazePOXIDE HCL 10 MG CAPSULE PO SCH (22:20)
[2016-12-04] MEDS: THIAMINE HCL 100 MG TABLET (FP) PO SCH (22:20)
[2016-12-04] MEDS: diphenhydrAMINE HCL 50 MG CAPSULE PO PRN (22:22)
[2016-12-05] MEDS: ALBUTEROL SO4 6.7 GM HFA INHALER IH PRN (04:59)
[2016-12-05] MEDS: chlordiazePOXIDE HCL 10 MG CAPSULE PO SCH ×2 (05:00→10:27)
[2016-12-05] MEDS: EFAVIRENZ 600 MG TABLET PO SCH (10:27)
[2016-12-05] MEDS: AZITHROMYCIN 250 MG TABLET (FP) PO SCH (10:27)
[2016-12-05] MEDS: predniSONE 20 MG TABLET (UD) PO SCH (10:27)
[2016-12-05] MEDS: SULFAMETHOXAZOLE/TRIMETHOPRIM 800MG/160MG D.S. TABLET PO SCH (10:27)
[2016-12-05] MEDS: PRENATAL VITAMINS W/ FOLIC ACID TABLET (FP) PO SCH (10:27)
[2016-12-05] MEDS: EMTRICITABINE 200MG/TENOFOVIR 300MG PO SCH (10:28)
--- NOTE | 2016-12-05 10:31 | PN ---
S Progress Note (SOAP) Subjective: Pt. has completed detox. He now tells me that his hernia is back. Objective: 12/05/16 10:28 Vital Signs - 8 hr 12/05/16 12/05/16 03:30 06:30 Temperature 96.3 F L Pulse Rate 96 H Respiratory 18 16 Rate Blood Pressure 95/74 Pelvic : scrotal mass and very tender rt. testicle Assessment: 12/05/16 10:29 Scrotal mass tender testicle Plan: Send to ED for evaluation reports given to Dr. Morales,Resident
[2016-12-05 10:34] VITALS: BP 93/68; PULSE 100; TEMP 96.7
--- NOTE | 2016-12-09 14:37 | DS ---
[facility] Detox Discharge Summary Admission Date: 12/01/16 Discharge Date: 12/05/16 - History Present History: Alcohol Dependence, Cannabis Dependence Pertinent Past History: Asthma AIDS - Physical Exam Results Vital Signs: Vital Signs Temperature 96.7 F L 12/05/16 10:33 Pulse Rate 100 H 12/05/16 10:33 Respiratory Rate 18 12/05/16 10:33 Blood Pressure 93/68 12/05/16 10:33 O2 Sat by Pulse Oximetry (%) Pertinent Admission Physical Exam Findings: Withdrawal sx. Laboratory Last Values WBC 6.2 K/mm3 (4.0-10.0) 12/02/16 09:20 RBC 3.92 M/mm3 (4.00-5.60) L 12/02/16 09:20 Hgb 10.3 GM/dL (11.7-16.9) L 12/02/16 09:20 Hct 32.8 % (35.4-49) L 12/02/16 09:20 MCV 83.7 fl (80-96) 12/02/16 09:20 MCHC 31.3 g/dl (32.0-35.9) L 12/02/16 09:20 RDW 21.1 % (11.9-15.9) H 12/02/16 09:20 Plt Count 325 K/MM3 (134-434) 12/02/16 09:20 MPV 7.7 fl (7.5-11.1) 12/02/16 09:20 Sodium 139 mmol/L (136-145) 12/02/16 09:20 Potassium 4.0 mmol/L (3.5-5.1) 12/02/16 09:20 Chloride 102 mmol/L (98-107) 12/02/16 09:20 Carbon Dioxide 28 mmol/L (21-32) 12/02/16 09:20 Anion Gap 9 (8-16) 12/02/16 09:20 BUN 17 mg/dL (7-18) 12/02/16 09:20 Creatinine 0.9 mg/dL (0.7-1.3) 12/02/16 09:20 Creat Clearance w eGFR > 60 (>60) 12/02/16 09:20 Random Glucose 129 mg/dL (74-106) H D 12/02/16 09:20 Calcium 9.1 mg/dL (8.5-10.1) 12/02/16 09:20 Total Bilirubin 0.5 mg/dL (0.2-1.0) D 12/02/16 09:20 AST 80 U/L (15-37) H D 12/02/16 09:20 ALT 59 U/L (12-78) 12/02/16 09:20 Alkaline Phosphatase 225 U/L (45-117) H D 12/02/16 09:20 Total Protein 6.6 g/dl (6.4-8.2) 12/02/16 09:20 Albumin 2.9 g/dl (3.4-5.0) L 12/02/16 09:20 Urine Color Yellow 12/01/16 18:00 Urine Appearance Cloudy 12/01/16 18:00 Urine pH 7.0 (5.0-8.0) 12/01/16 18:00 Ur Specific [place] 1.014 (1.001-1.035) 12/01/16 18:00 Urine Protein 1+ (NEGATIVE) H 12/01/16 18:00 Urine Glucose (UA) Negative (NEGATIVE) 12/01/16 18:00 Urine Ketones Negative (NEGATIVE) 12/01/16 18:00 Urine Blood 2+ (NEGATIVE) H 12/01/16 18:00 Urine Nitrite Negative (NEGATIVE) 12/01/16 18:00 Urine Bilirubin Negative (NEGATIVE) 12/01/16 18:00 Urine Urobilinogen Negative E.U./dl (0.2-1.0) 12/01/16 18:00 Ur Leukocyte Esterase 3+ (NEGATIVE) H 12/01/16 18:00 Urine RBC 10 /hpf (0-3) 12/01/16 18:00 Urine WBC 117 /hpf (3-5) 12/01/16 18:00 Ur Epithelial Cells Rare /hpf (FEW) 12/01/16 18:00 Urine Bacteria Few /hpf (NONE SEEN) 12/01/16 18:00 Urine Yeast Few 12/01/16 18:00 RPR Titer Nonreactive (NONREACTIVE) 12/02/16 06:00 labs noted,u/a consistent with UTI was being treated with Bactrim ds bid - Treatment Hospital Course: Detox Protocol Followed, Detoxed Safely, Responded well Patient has Accepted a Rehab Referral to: Transferred to ED - Medication Discharge Medications: Ambulatory Orders Azithromycin [Zithromax 250mg Tablets -] 250 mg PO DAILY 11/11/16 Efavirenz [Sustiva -] 600 mg PO DAILY 11/11/16 Prednisone [Deltasone -] 20 mg PO DAILY 11/11/16 Albuterol Sulfate Inhaler - [Ventolin HFA Inhaler -] 2 puff IH PRN PRN 11/14/16 Emtricitabine/Tenofovir [Truvada -] 1 tab PO DAILY tablet 11/14/16 Fluticasone Propionate [Flovent Diskus] 44 mcg IH BID 11/14/16 Lactulose (Oral Use) [Cephulac -] 20 gm PO TID udc 11/14/16 Sulfamethoxazole/Trimethoprim [Bactrim DS -] 1 each PO BID tablet 11/14/16 - Diagnosis (1) AIDS Status: Acute (2) Cannabis dependence Status: Acute (3) Nicotine dependence Status: Acute Qualifiers: Nicotine product type: cigarettes Substance use status: uncomplicated Qualified Code(s): F17.210 - Nicotine dependence, cigarettes, uncomplicated (4) UTI (urinary tract infection) Status: Acute (5) Alcohol dependence with uncomplicated withdrawal Status: Acute - AMA Did Patient Leave Against Medical Advice: No (transferred to ED)
== END 2016-12-05 10:40 | disposition short-term general hospital (02) | DRG 896 ==
LOC: YASAS 10:59 → Y3N 14:51
PROVIDERS: ADMIT Internal Medicine; ATTEND Internal Medicine
PROC: HZ2ZZZZ Detoxification Services for Substance Abuse Treatment (ICD-10-PCS; principal; 2016-12-05)
DX: F10.230 Alcohol dependence with withdrawal, uncomplicated (principal); B20 Human immunodeficiency virus [HIV] disease; Z68.1 Body mass index [BMI] 19.9 or less, adult; F12.20 Cannabis dependence, uncomplicated; F17.210 Nicotine dependence, cigarettes, uncomplicated; J45.20 Mild intermittent asthma, uncomplicated; R63.4 Abnormal weight loss; Z59.0 Homelessness
CPT/HCPCS: 36415; 80053; 81003; 81015; 85027; 86593; 93005; 93010

== ENCOUNTER 2018-09-20 09:50 | Inpatient (IN) | payer OTHER ==
[2018-09-20 10:23] VITALS: BMI 18.3
--- NOTE | 2018-09-20 10:43 | HP ---
CIWA Score Nausea/Vomitin Muscle Tremors: 2 Anxiety: 2 Agitation: 2 Paroxysmal Sweats: 1-Minimal Palms Moist Orientation: 0-Oriented Tacttile Disturbances: 1-Very Mild Itch/Numbness Auditory Disturbances: 1-Very Mild Visual Disturbances: 0-None Headache: 2-Mild CIWA-Ar Total Score: 13 - Admission Criteria [facility] Guidelines: Admission for Medically Managed Detox: Requires at least one of the followin. CIWA greater than 12 2. Seizures within the past 24 hours 3. Delirium tremens within the past 24 hours 4. Hallucinations within the past 24 hours 5. Acute intervention needed for co occurring medical disorder 6. Acute intervention needed for co occurring psychiatric disorder 7. Severe withdrawal that cannot be handled at a lower level of care (continued vomiting, continued diarrhea, abnormal vital signs) requiring intravenous medication and/or fluids 8. Patient presents the following: CIWA greater than 12 Admission Criteria Met: Admission criteria met Admission ROS BHS - HPI Chief Complaint: i need help to stop drinking alcohol Allergies/Adverse Reactions: Allergies Allergy/AdvReac Type Severity Reaction Status Date / Time No Known Allergies Allergy Verified 09/20/18 10:41 History of Present Illness: this 53 years old male with alcohol dependence,seeking detox,withdrawal symptom, last detox 08/29 did not recall the facility history of hiv since 2001 laceration of right eyebrow colovesicle fistula in 2017 ,now closure of colostomy weight loss nicotine dependence no significant of sobriety multiple admissions in the past Exam Limitations: No Limitations - Ebola screening Have you traveled outside of the country in the last 21 days: No Have you had contact with anyone from an Ebola affected area: No Have you been sick,other than usual withdrawal symptoms: No - Review of Systems Constitutional: Loss of Appetite, Malaise, Night Sweats, Changes in sleep, Weakness, Unintentional Wgt. Loss EENT: reports: Nose Congestion, Other (laceration of right eyebrow with stitches deminish visoins both eys) Respiratory: reports: No Symptoms reported Cardiac: reports: No Symptoms Reported GI: reports: No Symptoms Reported : reports: No Symptoms Reported Integumentary: reports: Dryness Neuro: reports: Tremors Endocrine: reports: No Symptoms Reported Hematology: reports: No Symptoms Reported, Other (hiv since 2001) Psychiatric: reports: No Sypmtoms Reported, Judgement Intact, Mood/Affect Appropiate, Orientated x3 Patient History - Patient Medical History Hx Anemia: No Hx Asthma: Yes (ON ALBUTEROL INHALER) Hx Chronic Obstructive Pulmonary Disease (COPD): Yes Hx Cancer: No Hx Cardiac Disorders: No Hx Congestive Heart Failure: No Hx Hypertension: No Hx Hypercholesterolemia: No Hx Pacemaker: No HX Cerebrovascular Accident: No Hx Seizures: Yes (last 2016 alcohol related) Hx Dementia: No Hx Diabetes: No Hx Gastrointestinal Disorders: No Hx Liver Disease: No Hx Genitourinary Disorders: No Hx Sexually Transmitted Disorders: No Hx Renal Disease (ESRD): No Hx Thyroid Disease: No Hx Human Immunodeficiency Virus (HIV): Yes (since 2001 on atripla) Hx Hepatitis C: No Hx Depression: Yes Hx Suicide Attempt: No Hx Bipolar Disorder: No Hx Schizophrenia: No Other Medical History: no suicidal,no homicidal,laceration of right eyebrow with stitches - Patient Surgical History Past Surgical History: Yes Hx Neurologic Surgery: No Hx Cataract Extraction: No Hx Cardiac Surgery: No Hx Lung Surgery: No Hx Breast Surgery: No Hx Breast Biopsy: No Hx Abdominal Surgery: Yes (left inguinal sugery) Hx Appendectomy: No Hx Cholecystectomy: No Hx Genitourinary Surgery: No Hx Orthopedic Surgery: Yes (LEFT SHOULDER ROTATOR CUFF SX ) Other Surgical History: L rot cuff repair, Anesthesia Reaction: No - PPD History Previous Implant?: Yes Documented Results: Negative w/o proof Implanted On Prior [facility] Admission?: Yes Date: 11/13/16 Results: 0 MM PPD to be Administered?: Yes - Smoking Cessation Smoking history: Current every day smoker Have you smoked in the past 12 months: Yes Aproximately how many cigarettes per day: 20 Hx Chewing Tobacco Use: No Initiated information on smoking cessation: Yes 'Breaking Loose' booklet given: 09/20/18 - Substance & Tx. History Hx Alcohol Use: Yes Hx Substance Use: No Substance Use Type: Alcohol Hx Substance Use Treatment: Yes (08/29 unknown facility) - Substances Abused Alcohol Route: Oral Frequency: Daily Amount used: 1 PINT VODKA AND UP Age of first use: 16 Date of Last Use: 09/20/18 Marijuana/Hashish Route: Smoking Frequency: Daily Amount used: $15-20 Age of first use: 16 Date of Last Use: 09/19/18 Family Disease History - Family Disease History Family Disease History: Respiratory: Mother (ASTHMA ) Admission Physical Exam [facility] - Vital Signs Vital Signs: Vital Signs - 24 hr 09/20/18 10:19 Temperature 96.9 F L Pulse Rate 99 H Respiratory 20 Rate Blood Pressure 107/73 - Physical General Appearance: Yes: Moderate Distress, Tremorous, Irritable, Sweating, Anxious HEENTM: Yes: CHRISTIANO, Pharynx Normal, Photophobia, Other (deminishe vision both eyes laceration with stitches right eyebrow) Respiratory: Yes: Lungs Clear, Normal Breath Sounds, No Respiratory Distress Neck: Yes: Within Normal Limits, Supple, Trachea in good position Breast: Yes: Within Normal Limits Cardiology: Yes: Within Normal Limits, Regular Rhythm, Regular Rate, S1, S2 Abdominal: Yes: Within Normal Limits, Normal Bowel Sounds, Non Tender, Soft, Surgical Scar Genitourinary: Yes: Within Normal Limits Back: Yes: Muscle Spasm Musculoskeletal: Yes: full range of Motion, Back pain, Muscle Pain Extremities: Yes: Normal Range of Motion, Tremors Neurological: 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 intact, Fully Oriented, Alert, Motor Strength 5/5 Integumentary: Yes: Dry Lymphatic: Yes: Within Normal Limits - Diagnostic (1) Alcohol dependence with uncomplicated withdrawal Current Visit: No Status: Acute (2) Cannabis dependence Current Visit: No Status: Acute (3) [place]-vesical fistula Current Visit: No Status: Acute (4) Diverticulitis Current Visit: No Status: Acute Qualifiers: Diverticulitis site: unspecified part of intestinal tract Diverticulitis bleeding: without bleeding Diverticulitis complication: without perforation or abscess Qualified Code(s): K57.92 - Diverticulitis of intestine, part unspecified, without perforation or abscess without bleeding (5) Nicotine dependence Current Visit: No Status: Acute Qualifiers: Nicotine product type: cigarettes Substance use status: uncomplicated Qualified Code(s): F17.210 - Nicotine dependence, cigarettes, uncomplicated (6) Weight loss Current Visit: No Status: Acute (7) Asthma Current Visit: No Status: Chronic (8) HIV (human immunodeficiency virus infection) Current Visit: No Status: Chronic (9) Alcohol dependence with uncomplicated intoxication Current Visit: Yes Status: Acute Cleared for Admission [facility] - Detox or Rehab [facility] Level of Care: Medically Managed Detox Regimen/Protocol: Librium S Breath Alcohol Content Breath Alcohol Content: 0.329 Urine Drug Screen - Results Drug Screen Negative: No Urine Drug Screen Results: THC-Marijuana, BZO-Benzodiazepines
[2018-09-20] MEDS ORDERED: MAGNESIUM CITRATE 300 ML BOTTLE PO PRN (10:56)
[2018-09-20] MEDS ORDERED: P-EPHED 60MG/TRIPROLIDI 2.5MG TABLET PO PRN (10:56)
[2018-09-20] MEDS ORDERED: MAGNESIUM HYDROX 2400MG/30ML ORAL SUSPENSION 30 ML CUP PO PRN (10:56)
[2018-09-20] MEDS ORDERED: MENTHOL/PHENOL 1 EACH UD MM PRN (10:56)
[2018-09-20] MEDS ORDERED: MAG HYDROX/AL HYDROX/SIMETH 30 ML UNIT-DOSE CUP PO PRN (10:56)
[2018-09-20] MEDS ORDERED: guaiFENesin/D-METHORPHAN HB 10 ML UNIT-DOSE CUPS PO PRN (10:56)
[2018-09-20] MEDS ORDERED: ACETAMINOPHEN 325 MG TABLET (FP) PO PRN (10:56)
[2018-09-20] MEDS ORDERED: chlordiazePOXIDE HCL 25 MG CAPSULE PO PRN (10:56)
[2018-09-20] MEDS ORDERED: hydrOXYzine PAMOATE 25 MG CAPSULE (FP) PO PRN (10:56)
[2018-09-20] MEDS ORDERED: LOPERAMIDE HCL 2 MG CAPSULE PO PRN (10:56)
[2018-09-20] MEDS: chlordiazePOXIDE HCL 25 MG CAPSULE PO SCH ×2 (17:37→22:14)
[2018-09-20] MEDS: ALBUTEROL SO4 8 GM HFA INHALER IH PRN (17:41)
[2018-09-20] MEDS ORDERED: MELATONIN 5 MG TABLETS PO PRN (22:00)
[2018-09-20] MEDS: THIAMINE HCL 100 MG TABLET (FP) PO SCH (22:14)
[2018-09-20] MEDS: BUDESONIDE/FORMETEROL FUMARATE 160/4.5 mcg INHALER IH SCH (23:20)
[2018-09-21] MEDS: IBUPROFEN 400 MG TABLET (FP) PO PRN (03:51)
[2018-09-21] MEDS: chlordiazePOXIDE HCL 25 MG CAPSULE PO SCH ×4 (05:41→22:14)
[2018-09-21] MEDS ORDERED: PATIENT'S OWN MEDICATION (NON-FORMULARY) (Efavirenz/Emtricitab/Tenofovir 1 TAB) PO SCH (10:00)
[2018-09-21] MEDS: PRENATAL VITAMINS W/ FOLIC ACID TABLET (FP) PO SCH (10:09)
[2018-09-21] MEDS: EMTRICITABINE 200MG/TENOFOVIR 300MG PO SCH (10:10)
[2018-09-21] MEDS: EFAVIRENZ 600 MG TABLET PO SCH (10:10)
[2018-09-21] MEDS: ALBUTEROL SO4 8 GM HFA INHALER IH PRN (10:20)
[2018-09-21] MEDS: BUDESONIDE/FORMETEROL FUMARATE 160/4.5 mcg INHALER IH SCH ×2 (10:48→22:15)
[2018-09-21 10:49] LABS: HEMATOCRIT 41.8 % (35.4-49); HEMOGLOBIN 13.4 GM/dL (11.7-16.9); MCH 31.8 pg (25.7-33.7); MCHC 32.1 g/dl (32.0-35.9); MEAN CELL VOLUME 99.1 fl (80-96); MEAN PLT VOLUME 7.8 fl (7.5-11.1); PLATELET COUNT 234 K/MM3 (134-434); RBC 4.22 M/mm3 (4.00-5.60); RDW 17.4 % (11.9-15.9); WHITE BLOOD COUNT 8.8 K/mm3 (4.0-10.0)
[2018-09-21 11:31] LABS: ALBUMIN 3.5 g/dl (3.4-5.0); ALK PHOS 220 U/L (45-117); ANION GAP 10 MMOL/L (8-16); BILIRUBIN,TOTAL 0.4 mg/dL (0.2-1); BLOOD UREA NITROGEN 19 mg/dL (7-18); CALCIUM 8.5 mg/dL (8.5-10.1); CHLORIDE 103 mmol/L (98-107); CO2 27 mmol/L (21-32); CREATININE 0.9 mg/dL (0.55-1.3); GLUCOSE,RANDOM 98 mg/dL (74-106); POTASSIUM 3.6 mmol/L (3.5-5.1); SGOT/AST 244 U/L (15-37); SGPT/ALT 107 U/L (13-61); SODIUM 140 mmol/L (136-145); TOT PROT 7.6 g/dl (6.4-8.2)
[2018-09-21] MEDS ORDERED: PNEUMOC 13-VAL CONJ-DIP CRM/PF 0.5 ML DISP.SYRIN IM ONE (12:00)
--- NOTE | 2018-09-21 13:31 | PN ---
S CIWA - CIWA Score Nausea/Vomitin-Mild Nausea/No Vomiting Muscle Tremors: 3 Anxiety: 2 Agitation: 2 Paroxysmal Sweats: 1-Minimal Palms Moist Orientation: 0-Oriented Tacttile Disturbances: 0-None Auditory Disturbances: 0-None Visual Disturbances: 0-None Headache: 1-Very Mild CIWA-Ar Total Score: 10 S Progress Note (SOAP) Subjective: tremor sweat mild gi distress Objective: 09/21/18 13:29 Vital Signs Temperature 98.1 F 09/21/18 09:30 Pulse Rate 80 09/21/18 11:30 Respiratory Rate 18 09/21/18 11:30 Blood Pressure 114/80 09/21/18 09:30 O2 Sat by Pulse Oximetry (%) Laboratory Last Values WBC 8.8 K/mm3 (4.0-10.0) 09/21/18 05:45 RBC 4.22 M/mm3 (4.00-5.60) 09/21/18 05:45 Hgb 13.4 GM/dL (11.7-16.9) 09/21/18 05:45 Hct 41.8 % (35.4-49) D 09/21/18 05:45 MCV 99.1 fl (80-96) H 09/21/18 05:45 MCH 31.8 pg (25.7-33.7) D 09/21/18 05:45 MCHC 32.1 g/dl (32.0-35.9) 09/21/18 05:45 RDW 17.4 % (11.9-15.9) H 09/21/18 05:45 Plt Count 234 K/MM3 (134-434) D 09/21/18 05:45 MPV 7.8 fl (7.5-11.1) 09/21/18 05:45 Sodium 140 mmol/L (136-145) 09/21/18 05:45 Potassium 3.6 mmol/L (3.5-5.1) 09/21/18 05:45 Chloride 103 mmol/L (98-107) 09/21/18 05:45 Carbon Dioxide 27 mmol/L (21-32) 09/21/18 05:45 Anion Gap 10 MMOL/L (8-16) 09/21/18 05:45 BUN 19 mg/dL (7-18) H 09/21/18 05:45 Creatinine 0.9 mg/dL (0.55-1.3) 09/21/18 05:45 Creat Clearance w eGFR > 60 (>60) 09/21/18 05:45 Random Glucose 98 mg/dL (74-106) 09/21/18 05:45 Calcium 8.5 mg/dL (8.5-10.1) 09/21/18 05:45 Total Bilirubin 0.4 mg/dL (0.2-1) 09/21/18 05:45 AST 244 U/L (15-37) H 09/21/18 05:45 ALT 107 U/L (13-61) H 09/21/18 05:45 Alkaline Phosphatase 220 U/L (45-117) H 09/21/18 05:45 Total Protein 7.6 g/dl (6.4-8.2) 09/21/18 05:45 Albumin 3.5 g/dl (3.4-5.0) 09/21/18 05:45 RPR Titer Nonreactive (NONREACTIVE) 09/21/18 05:45 lab noted repeat ast alt Assessment: 09/21/18 13:30 withdrawal sx Plan: continue detox
[2018-09-21] MEDS: THIAMINE HCL 100 MG TABLET (FP) PO SCH (22:14)
[2018-09-22] MEDS: chlordiazePOXIDE HCL 25 MG CAPSULE PO SCH ×2 (05:13→10:20)
[2018-09-22] MEDS: IBUPROFEN 400 MG TABLET (FP) PO PRN (05:13)
[2018-09-22] MEDS: PRENATAL VITAMINS W/ FOLIC ACID TABLET (FP) PO SCH (10:19)
[2018-09-22] MEDS: EFAVIRENZ 600 MG TABLET PO SCH (10:19)
[2018-09-22] MEDS: EMTRICITABINE 200MG/TENOFOVIR 300MG PO SCH (10:19)
[2018-09-22] MEDS: BUDESONIDE/FORMETEROL FUMARATE 160/4.5 mcg INHALER IH SCH ×2 (10:20→22:25)
--- NOTE | 2018-09-22 10:38 | PN ---
S CIWA - CIWA Score Nausea/Vomitin-No Nausea/No Vomiting Muscle Tremors: 2 Anxiety: 1-Mildly Anxious Agitation: 2 Paroxysmal Sweats: 1-Minimal Palms Moist Orientation: 0-Oriented Tacttile Disturbances: 0-None Auditory Disturbances: 0-None Visual Disturbances: 0-None Headache: 2-Mild CIWA-Ar Total Score: 8 S Progress Note (SOAP) Subjective: tremor sweat no gi distress sleep better at night Objective: 09/22/18 10:38 Vital Signs Temperature 97.1 F L 09/22/18 09:25 Pulse Rate 82 09/22/18 09:25 Respiratory Rate 17 09/22/18 09:25 Blood Pressure 110/74 09/22/18 09:25 O2 Sat by Pulse Oximetry (%) Laboratory Last Values WBC 8.8 K/mm3 (4.0-10.0) 09/21/18 05:45 RBC 4.22 M/mm3 (4.00-5.60) 09/21/18 05:45 Hgb 13.4 GM/dL (11.7-16.9) 09/21/18 05:45 Hct 41.8 % (35.4-49) D 09/21/18 05:45 MCV 99.1 fl (80-96) H 09/21/18 05:45 MCH 31.8 pg (25.7-33.7) D 09/21/18 05:45 MCHC 32.1 g/dl (32.0-35.9) 09/21/18 05:45 RDW 17.4 % (11.9-15.9) H 09/21/18 05:45 Plt Count 234 K/MM3 (134-434) D 09/21/18 05:45 MPV 7.8 fl (7.5-11.1) 09/21/18 05:45 Sodium 140 mmol/L (136-145) 09/21/18 05:45 Potassium 3.6 mmol/L (3.5-5.1) 09/21/18 05:45 Chloride 103 mmol/L (98-107) 09/21/18 05:45 Carbon Dioxide 27 mmol/L (21-32) 09/21/18 05:45 Anion Gap 10 MMOL/L (8-16) 09/21/18 05:45 BUN 19 mg/dL (7-18) H 09/21/18 05:45 Creatinine 0.9 mg/dL (0.55-1.3) 09/21/18 05:45 Creat Clearance w eGFR > 60 (>60) 09/21/18 05:45 Random Glucose 98 mg/dL (74-106) 09/21/18 05:45 Calcium 8.5 mg/dL (8.5-10.1) 09/21/18 05:45 Total Bilirubin 0.4 mg/dL (0.2-1) 09/21/18 05:45 AST 244 U/L (15-37) H 09/21/18 05:45 ALT 107 U/L (13-61) H 09/21/18 05:45 Alkaline Phosphatase 220 U/L (45-117) H 09/21/18 05:45 Total Protein 7.6 g/dl (6.4-8.2) 09/21/18 05:45 Albumin 3.5 g/dl (3.4-5.0) 09/21/18 05:45 RPR Titer Nonreactive (NONREACTIVE) 09/21/18 05:45 lab noted 09/22/18 10:39 repeat ast alt pending 09/22/18 10:56 do no harm to hepatic system discontinue librium begin ativan Assessment: 09/22/18 10:57 withdrawal sx ativan protocol Plan: continue detox alcohol withdrawal with ativan protocol
[2018-09-22] MEDS ORDERED: LORazepam 1 MG TABLET PO PRN (10:55)
[2018-09-22] MEDS ORDERED: chlordiazePOXIDE 5 MG CAPSULE PO SCH (17:00)
[2018-09-22] MEDS: ALBUTEROL SO4 8 GM HFA INHALER IH PRN (17:08)
[2018-09-22] MEDS: LORazepam 1 MG TABLET PO SCH ×2 (17:10→23:04)
[2018-09-22] MEDS: THIAMINE HCL 100 MG TABLET (FP) PO SCH (22:25)
[2018-09-23] MEDS: LORazepam 1 MG TABLET PO SCH ×4 (05:15→23:40)
[2018-09-23] MEDS: EMTRICITABINE 200MG/TENOFOVIR 300MG PO SCH (10:27)
[2018-09-23] MEDS: EFAVIRENZ 600 MG TABLET PO SCH (10:27)
[2018-09-23] MEDS: PRENATAL VITAMINS W/ FOLIC ACID TABLET (FP) PO SCH (10:27)
[2018-09-23] MEDS: BUDESONIDE/FORMETEROL FUMARATE 160/4.5 mcg INHALER IH SCH ×2 (10:27→22:12)
[2018-09-23] MEDS: IBUPROFEN 400 MG TABLET (FP) PO PRN (10:29)
[2018-09-23 12:06] LABS: SGOT/AST 45 U/L (15-37); SGPT/ALT 57 U/L (13-61)
--- NOTE | 2018-09-23 13:48 | PN ---
[facility] Progress Note (SOAP) Subjective: feeling better no tremor less sweat discuss aftercare with staff Objective: 09/23/18 13:50 Vital Signs Temperature 97.3 F L 09/23/18 13:22 Pulse Rate 105 H 09/23/18 13:22 Respiratory Rate 18 09/23/18 13:22 Blood Pressure 107/75 09/23/18 13:22 O2 Sat by Pulse Oximetry (%) Laboratory Last Values WBC 8.8 K/mm3 (4.0-10.0) 09/21/18 05:45 RBC 4.22 M/mm3 (4.00-5.60) 09/21/18 05:45 Hgb 13.4 GM/dL (11.7-16.9) 09/21/18 05:45 Hct 41.8 % (35.4-49) D 09/21/18 05:45 MCV 99.1 fl (80-96) H 09/21/18 05:45 MCH 31.8 pg (25.7-33.7) D 09/21/18 05:45 MCHC 32.1 g/dl (32.0-35.9) 09/21/18 05:45 RDW 17.4 % (11.9-15.9) H 09/21/18 05:45 Plt Count 234 K/MM3 (134-434) D 09/21/18 05:45 MPV 7.8 fl (7.5-11.1) 09/21/18 05:45 Sodium 140 mmol/L (136-145) 09/21/18 05:45 Potassium 3.6 mmol/L (3.5-5.1) 09/21/18 05:45 Chloride 103 mmol/L (98-107) 09/21/18 05:45 Carbon Dioxide 27 mmol/L (21-32) 09/21/18 05:45 Anion Gap 10 MMOL/L (8-16) 09/21/18 05:45 BUN 19 mg/dL (7-18) H 09/21/18 05:45 Creatinine 0.9 mg/dL (0.55-1.3) 09/21/18 05:45 Creat Clearance w eGFR > 60 (>60) 09/21/18 05:45 Random Glucose 98 mg/dL (74-106) 09/21/18 05:45 Calcium 8.5 mg/dL (8.5-10.1) 09/21/18 05:45 Total Bilirubin 0.4 mg/dL (0.2-1) 09/21/18 05:45 AST 45 U/L (15-37) H 09/23/18 09:00 ALT 57 U/L (13-61) 09/23/18 09:00 Alkaline Phosphatase 220 U/L (45-117) H 09/21/18 05:45 Total Protein 7.6 g/dl (6.4-8.2) 09/21/18 05:45 Albumin 3.5 g/dl (3.4-5.0) 09/21/18 05:45 RPR Titer Nonreactive (NONREACTIVE) 09/21/18 05:45 lab noted Assessment: 09/23/18 13:52 mild withdrawal sx Plan: medically supervised detox
[2018-09-23] MEDS ORDERED: chlordiazePOXIDE HCL 10 MG CAPSULE PO SCH (17:00)
[2018-09-23] MEDS: THIAMINE HCL 100 MG TABLET (FP) PO SCH (22:12)
[2018-09-24] MEDS ORDERED: LORazepam 1 MG TABLET PO ONE (06:00)
[2018-09-24 06:15] VITALS: BP 109/71; PULSE 75; TEMP 97
--- NOTE | 2018-09-24 09:43 | PN ---
[facility] Progress Note (SOAP) Subjective: I'M better Objective: 09/24/18 09:42 Vital Signs Temperature 97 F L 09/24/18 06:14 Pulse Rate 75 09/24/18 06:14 Respiratory Rate 18 09/24/18 06:14 Blood Pressure 109/71 09/24/18 06:14 O2 Sat by Pulse Oximetry (%) Laboratory Tests 09/21/18 09/21/18 09/21/18 05:45 05:45 05:45 WBC 8.8 RBC 4.22 Hgb 13.4 Hct 41.8 D MCV 99.1 H MCH 31.8 D MCHC 32.1 RDW 17.4 H Plt Count 234 D MPV 7.8 Sodium 140 Potassium 3.6 Chloride 103 Carbon Dioxide 27 Anion Gap 10 BUN 19 H Creatinine 0.9 Creat Clearance w eGFR > 60 Random Glucose 98 Calcium 8.5 Total Bilirubin 0.4 AST 244 H ALT 107 H Alkaline Phosphatase 220 H Total Protein 7.6 Albumin 3.5 RPR Titer Nonreactive 09/23/18 09:00 WBC RBC Hgb Hct MCV MCH MCHC RDW Plt Count MPV Sodium Potassium Chloride Carbon Dioxide Anion Gap BUN Creatinine Creat Clearance w eGFR Random Glucose Calcium Total Bilirubin AST 45 H ALT 57 Alkaline Phosphatase Total Protein Albumin RPR Titer pt aox3 in nad ambulating Assessment: 09/24/18 09:42 detox completed Plan: d/c from detox cont hydration
--- NOTE | 2018-09-24 09:47 | DS ---
[facility] Detox Discharge Summary Admission Date: 09/20/18 - History Present History: Alcohol Dependence, Cannabis Dependence - Physical Exam Results Vital Signs: Vital Signs Temperature 97 F L 09/24/18 06:14 Pulse Rate 75 09/24/18 06:14 Respiratory Rate 18 09/24/18 06:14 Blood Pressure 109/71 09/24/18 06:14 O2 Sat by Pulse Oximetry (%) - Treatment Hospital Course: Detox Protocol Followed, Detoxed Safely, Responded well, Discharged Condition Good - Medication Discharge Medications: Ambulatory Orders Efavirenz/Emtricitab/Tenofovir [Atripla Tablet -] 1 tab PO DAILY 09/20/18 Folic Acid - 1 mg PO DAILY 09/20/18 Albuterol Sulfate Inhaler - [Ventolin HFA Inhaler -] 2 puff IH PRN PRN #1 inhaler 09/23/18 Budesonide/Formeterol Fumarate [SYMBICORT 160/4.5mcg -] 2 puff IH BID #1 inhaler 09/23/18 - Diagnosis (1) Alcohol dependence with uncomplicated intoxication Current Visit: Yes Status: Chronic (2) AIDS Current Visit: No Status: Chronic (3) Cannabis dependence Current Visit: Yes Status: Chronic (4) Nicotine dependence Current Visit: Yes Status: Chronic Qualifiers: Nicotine product type: cigarettes Substance use status: uncomplicated Qualified Code(s): F17.210 - Nicotine dependence, cigarettes, uncomplicated (5) Asthma Current Visit: Yes Status: Chronic Qualifiers: Asthma severity: mild Asthma persistence: intermittent - AMA Did Patient Leave Against Medical Advice: No
== END 2018-09-24 09:10 | disposition home or self-care (01) | DRG 897 ==
LOC: EDBD 09:50 → YASAS 09:50 → Y3N 11:02
PROC: HZ2ZZZZ Detoxification Services for Substance Abuse Treatment (ICD-10-PCS; principal; 2018-09-20)
DX: F10.230 Alcohol dependence with withdrawal, uncomplicated (principal); B20 Human immunodeficiency virus [HIV] disease; N32.1 Vesicointestinal fistula; K63.2 Fistula of intestine; K57.92 Diverticulitis of intestine, part unspecified, without perforation or abscess without bleeding; Z68.1 Body mass index [BMI] 19.9 or less, adult; F12.20 Cannabis dependence, uncomplicated; F17.210 Nicotine dependence, cigarettes, uncomplicated; J45.20 Mild intermittent asthma, uncomplicated; R63.4 Abnormal weight loss; Z86.69 Personal history of other diseases of the nervous system and sense organs
CPT/HCPCS: 36415; 80053; 84450; 84460; 85027; 86593

== ENCOUNTER 2021-01-27 16:44 | Inpatient (IN) | payer OTHER ==
[2021-01-27] MEDS ORDERED: BISMUTH SUBSALICYLATE 524 MG/30 ML UD PO PRN (17:48)
[2021-01-27] MEDS ORDERED: NICOTINE POLACRILEX 2 MG GUM BUC PRN (17:48)
[2021-01-27] MEDS ORDERED: LORazepam 1 MG TABLET PO PRN (17:48)
[2021-01-27] MEDS ORDERED: MAGNESIUM CITRATE 300 ML BOTTLE PO PRN (17:48)
[2021-01-27] MEDS ORDERED: MAG HYDROX/AL HYDROX/SIMETH 30 ML UNIT-DOSE CUP PO PRN (17:48)
[2021-01-27] MEDS ORDERED: ACETAMINOPHEN 325 MG TABLET (FP) PO PRN ×2 (17:48)
[2021-01-27] MEDS ORDERED: MENTHOL/PHENOL 1 EACH UD MM PRN (17:48)
[2021-01-27] MEDS ORDERED: MAGNESIUM HYDROX 2400MG/30ML ORAL SUSPENSION 30 ML CUP PO PRN (17:48)
[2021-01-27] MEDS ORDERED: ONDANSETRON *ODT* 4 MG TABLET SL PRN (17:48)
[2021-01-27] MEDS ORDERED: ALBUTEROL SO4 0.083% IH SOL 2.5 MG/3 ML VIAL.NEB. NEB ONE (18:26)
[2021-01-27] MEDS: hydrOXYzine PAMOATE 25 MG CAPSULE (FP) PO PRN (19:53)
[2021-01-27] MEDS: predniSONE 20 MG TABLET (UD) PO SCH (19:54)
[2021-01-27] MEDS: NYSTATIN 500,000 UNITS/5 ML SUSPENSION PO SCH ×2 (19:57→23:55)
[2021-01-27] MEDS: LORazepam 2 MG TABLET PO SCH (22:18)
[2021-01-27] MEDS: THIAMINE HCL 100 MG TABLET (FP) PO SCH (22:18)
[2021-01-27] MEDS: MELATONIN 5 MG TABLETS PO SCH (22:19)
[2021-01-27] MEDS: BUDESONIDE/FORMETEROL FUMARATE 160/4.5 mcg INHALER IH SCH (22:19)
[2021-01-27] MEDS: ALBUTEROL SO4 HFA INHALER IH SCH (22:20)
[2021-01-28] MEDS: NYSTATIN 500,000 UNITS/5 ML SUSPENSION PO SCH ×3 (06:58→17:43)
[2021-01-28] MEDS: LORazepam 2 MG TABLET PO SCH ×4 (06:59→22:26)
[2021-01-28] MEDS: ALBUTEROL SO4 HFA INHALER IH SCH (08:03)
[2021-01-28] MEDS: BUDESONIDE/FORMETEROL FUMARATE 160/4.5 mcg INHALER IH SCH ×2 (10:12→22:25)
[2021-01-28] MEDS: predniSONE 20 MG TABLET (UD) PO SCH (10:12)
[2021-01-28] MEDS: PRENATAL VITAMINS W/ FOLIC ACID TABLET (FP) PO SCH (10:13)
[2021-01-28] MEDS: NICOTINE 7 MG/24 HOURS TOPICAL PATCH TD SCH (10:13)
[2021-01-28 11:10] LABS: HEMATOCRIT 41.2 % (35.4-49); HEMOGLOBIN 13.8 GM/dL (11.7-16.9); MCH 32.2 pg (25.7-33.7); MCHC 33.5 g/dl (32.0-35.9); MEAN PLT VOLUME 8.4 fl (7.5-11.1); PLATELET COUNT 73 K/MM3 (134-434); RDW 15.9 % (11.9-15.9); WHITE BLOOD COUNT 5.3 K/mm3 (4.0-10.0)
[2021-01-28 11:22] LABS: BLOOD UREA NITROGEN 19.3 mg/dL (7-18); CALCIUM 9.2 mg/dL (8.5-10.1)
[2021-01-28 11:23] LABS: ALBUMIN 3.7 g/dl (3.4-5.0)
[2021-01-28 11:25] LABS: CREATININE 0.8 mg/dL (0.55-1.3)
[2021-01-28 11:27] LABS: BILIRUBIN,TOTAL 0.8 mg/dL (0.2-1); TOT PROT 8.2 g/dl (6.4-8.2)
[2021-01-28] MEDS: ALBUTEROL SO4 HFA INHALER IH PRN (17:47)
[2021-01-28] MEDS: MELATONIN 5 MG TABLETS PO SCH (22:26)
[2021-01-28] MEDS: THIAMINE HCL 100 MG TABLET (FP) PO SCH (22:26)
[2021-01-28] MEDS: IBUPROFEN 400 MG TABLET (FP) PO PRN (22:28)
[2021-01-28] MEDS: METHOCARBAMOL 500 MG TABLET PO PRN (22:29)
[2021-01-29] MEDS: NYSTATIN 500,000 UNITS/5 ML SUSPENSION PO SCH ×4 (00:12→17:45)
[2021-01-29] MEDS: LORazepam 1 MG TABLET PO SCH ×4 (05:38→22:09)
[2021-01-29] MEDS: PRENATAL VITAMINS W/ FOLIC ACID TABLET (FP) PO SCH (10:10)
[2021-01-29] MEDS: BUDESONIDE/FORMETEROL FUMARATE 160/4.5 mcg INHALER IH SCH ×2 (10:10→22:08)
[2021-01-29] MEDS: predniSONE 20 MG TABLET (UD) PO SCH (10:10)
[2021-01-29] MEDS: NICOTINE 7 MG/24 HOURS TOPICAL PATCH TD SCH (10:10)
[2021-01-29] MEDS: ALBUTEROL SO4 HFA INHALER IH PRN ×3 (10:11→22:10)
[2021-01-29] MEDS: THIAMINE HCL 100 MG TABLET (FP) PO SCH (22:09)
[2021-01-29] MEDS: MELATONIN 5 MG TABLETS PO SCH (22:09)
[2021-01-29] MEDS: METHOCARBAMOL 500 MG TABLET PO PRN (22:09)
[2021-01-29] MEDS: hydrOXYzine PAMOATE 25 MG CAPSULE (FP) PO PRN (22:10)
[2021-01-30] MEDS ORDERED: LORazepam 0.5 MG TABLET PO PRN
[2021-01-30] MEDS: NYSTATIN 500,000 UNITS/5 ML SUSPENSION PO SCH ×4 (00:18→17:53)
[2021-01-30] MEDS: hydrOXYzine PAMOATE 25 MG CAPSULE (FP) PO PRN (05:42)
[2021-01-30] MEDS: LORazepam 0.5 MG TABLET PO SCH ×4 (05:43→22:09)
[2021-01-30] MEDS: ALBUTEROL SO4 HFA INHALER IH PRN ×2 (05:51→17:53)
[2021-01-30 06:06] LABS: SARS-CoV-2 NAA Not Detected (Not Detected)
[2021-01-30] MEDS: predniSONE 20 MG TABLET (UD) PO SCH (10:05)
[2021-01-30] MEDS: PRENATAL VITAMINS W/ FOLIC ACID TABLET (FP) PO SCH (10:05)
[2021-01-30] MEDS: NICOTINE 7 MG/24 HOURS TOPICAL PATCH TD SCH (10:06)
[2021-01-30] MEDS: BUDESONIDE/FORMETEROL FUMARATE 160/4.5 mcg INHALER IH SCH ×2 (10:06→22:11)
[2021-01-30] MEDS: MELATONIN 5 MG TABLETS PO SCH (22:09)
[2021-01-30] MEDS: THIAMINE HCL 100 MG TABLET (FP) PO SCH (22:09)
[2021-01-30] MEDS: METHOCARBAMOL 500 MG TABLET PO PRN (23:23)
[2021-01-31] MEDS: NYSTATIN 500,000 UNITS/5 ML SUSPENSION PO SCH ×2 (00:29→05:43)
[2021-01-31] MEDS ORDERED: LORazepam 0.5 MG TABLET PO ONE (05:00)
[2021-01-31] MEDS: IBUPROFEN 400 MG TABLET (FP) PO PRN (05:44)
[2021-01-31] MEDS: hydrOXYzine PAMOATE 25 MG CAPSULE (FP) PO PRN (05:44)
[2021-01-31] MEDS: METHOCARBAMOL 500 MG TABLET PO PRN (05:45)
[2021-01-31 08:44] VITALS: BP 102/66; PULSE 70; TEMP 96.9
[2021-01-31] MEDS: PRENATAL VITAMINS W/ FOLIC ACID TABLET (FP) PO SCH (09:23)
[2021-01-31] MEDS: predniSONE 20 MG TABLET (UD) PO SCH (09:24)
[2021-01-31] MEDS: NICOTINE 7 MG/24 HOURS TOPICAL PATCH TD SCH (09:24)
[2021-01-31] MEDS: BUDESONIDE/FORMETEROL FUMARATE 160/4.5 mcg INHALER IH SCH (09:31)
== END 2021-01-31 09:36 | disposition home or self-care (01) | DRG 897 ==
LOC: YASAS 16:44 → Y3N 19:10
PROVIDERS: ADMIT Allergy & Immunology; ATTEND Allergy & Immunology
PROC: HZ2ZZZZ Detoxification Services for Substance Abuse Treatment (ICD-10-PCS; principal; 2021-01-27)
DX: F10.230 Alcohol dependence with withdrawal, uncomplicated (principal); B20 Human immunodeficiency virus [HIV] disease; J45.31 Mild persistent asthma with (acute) exacerbation; F12.20 Cannabis dependence, uncomplicated; F17.210 Nicotine dependence, cigarettes, uncomplicated; F19.24 Other psychoactive substance dependence with psychoactive substance-induced mood disorder; F31.9 Bipolar disorder, unspecified; Z87.19 Personal history of other diseases of the digestive system; Z98.890 Other specified postprocedural states
CPT/HCPCS: 36415; 80053; 82962; 85027; 86780; C9803; U0003; U0005

== ENCOUNTER 2021-06-27 14:58 | Inpatient (IN) | payer OTHER ==
[2021-06-27 19:31] VITALS: BMI 20.9
[2021-06-27] MEDS ORDERED: MENTHOL/PHENOL 1 EACH UD MM PRN (22:24)
[2021-06-27] MEDS ORDERED: ONDANSETRON *ODT* 4 MG TABLET SL PRN (22:24)
[2021-06-27] MEDS ORDERED: MAG HYDROX/AL HYDROX/SIMETH 30 ML UNIT-DOSE CUP PO PRN (22:24)
[2021-06-27] MEDS ORDERED: BISMUTH SUBSALICYLATE 524 MG/30 ML PO PRN (22:24)
[2021-06-27] MEDS ORDERED: MAGNESIUM HYDROX 2400MG/30ML ORAL SUSPENSION 30 ML CUP PO PRN (22:24)
[2021-06-27] MEDS ORDERED: IBUPROFEN 400 MG TABLET (FP) PO PRN (22:24)
[2021-06-27] MEDS ORDERED: ALBUTEROL SO4 HFA INHALER IH PRN (22:24)
[2021-06-27] MEDS ORDERED: METHOCARBAMOL 500 MG TABLET PO PRN (22:24)
[2021-06-27] MEDS ORDERED: MAGNESIUM CITRATE 300 ML BOTTLE PO PRN (22:24)
[2021-06-27] MEDS ORDERED: ACETAMINOPHEN 325 MG TABLET (FP) PO PRN ×2 (22:24)
[2021-06-27] MEDS ORDERED: diazePAM 5 MG TABLET PO PRN (22:28)
[2021-06-28] MEDS ORDERED: diazePAM 5 MG TABLET ONE ×2 (02:05→06:45)
[2021-06-28] MEDS: diazePAM 5 MG TABLET PO SCH ×5 (02:11→22:13)
[2021-06-28 08:31] LABS: HEMATOCRIT 39.6 % (35.4-49); HEMOGLOBIN 13.2 GM/dL (11.7-16.9); MCH 32.4 pg (25.7-33.7); MCHC 33.3 g/dl (32.0-35.9); MEAN CELL VOLUME 97.1 fl (80-96); MEAN PLT VOLUME 7.3 fl (7.5-11.1); PLATELET COUNT 169 10^3/uL (134-434); RBC 4.08 M/mm3 (4.00-5.60); RDW 16.4 % (11.9-15.9); WHITE BLOOD COUNT 4.9 K/mm3 (4.0-10.0)
[2021-06-28 09:08] LABS: ALBUMIN 3.6 g/dl (3.4-5.0); BILIRUBIN,TOTAL 0.6 mg/dL (0.2-1); BLOOD UREA NITROGEN 14.6 mg/dL (7-18); CALCIUM 8.2 mg/dL (8.5-10.1); CREATININE 0.7 mg/dL (0.55-1.3)
[2021-06-28] MEDS: EMTRICITAB/RILPIVIRI/TENOF ALA (ODEFSEY) TABLET PO SCH (12:39)
[2021-06-28] MEDS: BUDESONIDE/FORMETEROL FUMARATE 160/4.5 mcg INHALER IH SCH ×2 (12:40→22:12)
[2021-06-28] MEDS: PRENATAL VITAMINS W/ FOLIC ACID TABLET (FP) PO SCH (12:40)
[2021-06-28] MEDS: MELATONIN 5 MG TABLETS PO SCH (22:12)
[2021-06-28] MEDS: THIAMINE HCL 100 MG TABLET (FP) PO SCH (22:12)
[2021-06-29] MEDS: diazePAM 5 MG TABLET PO SCH ×3 (06:06→22:12)
[2021-06-29] MEDS: PRENATAL VITAMINS W/ FOLIC ACID TABLET (FP) PO SCH (10:49)
[2021-06-29] MEDS: EMTRICITAB/RILPIVIRI/TENOF ALA (ODEFSEY) TABLET PO SCH (10:49)
[2021-06-29] MEDS: BUDESONIDE/FORMETEROL FUMARATE 160/4.5 mcg INHALER IH SCH ×2 (10:49→22:11)
[2021-06-29] MEDS: MELATONIN 5 MG TABLETS PO SCH (22:11)
[2021-06-29] MEDS: THIAMINE HCL 100 MG TABLET (FP) PO SCH (22:13)
[2021-06-30] MEDS: diazePAM 5 MG TABLET PO SCH ×2 (05:23→19:00)
[2021-06-30] MEDS: EMTRICITAB/RILPIVIRI/TENOF ALA (ODEFSEY) TABLET PO SCH (10:30)
[2021-06-30] MEDS: BUDESONIDE/FORMETEROL FUMARATE 160/4.5 mcg INHALER IH SCH ×2 (10:30→22:09)
[2021-06-30] MEDS: PRENATAL VITAMINS W/ FOLIC ACID TABLET (FP) PO SCH (10:30)
[2021-06-30] MEDS: THIAMINE HCL 100 MG TABLET (FP) PO SCH (22:08)
[2021-06-30] MEDS: MELATONIN 5 MG TABLETS PO SCH (22:08)
[2021-07-01] MEDS ORDERED: diazePAM 5 MG TABLET PO ONE (06:00)
[2021-07-01 09:44] VITALS: BP 130/87; PULSE 93; TEMP 97.1
[2021-07-01] MEDS: EMTRICITAB/RILPIVIRI/TENOF ALA (ODEFSEY) TABLET PO SCH (09:50)
[2021-07-01] MEDS: PRENATAL VITAMINS W/ FOLIC ACID TABLET (FP) PO SCH (09:50)
[2021-07-01] MEDS: BUDESONIDE/FORMETEROL FUMARATE 160/4.5 mcg INHALER IH SCH (09:51)
== END 2021-07-01 09:52 | disposition home or self-care (01) | DRG 897 ==
LOC: YASAS 14:58 → Y3N 06-28 11:06
PROVIDERS: ADMIT Allergy & Immunology; ATTEND Allergy & Immunology
PROC: HZ2ZZZZ Detoxification Services for Substance Abuse Treatment (ICD-10-PCS; principal; 2021-06-28)
DX: F10.230 Alcohol dependence with withdrawal, uncomplicated (principal); B20 Human immunodeficiency virus [HIV] disease; F12.20 Cannabis dependence, uncomplicated; F17.210 Nicotine dependence, cigarettes, uncomplicated; F19.24 Other psychoactive substance dependence with psychoactive substance-induced mood disorder; J45.30 Mild persistent asthma, uncomplicated; Z87.19 Personal history of other diseases of the digestive system; Z98.890 Other specified postprocedural states
CPT/HCPCS: 36415; 80053; 85027; 86780; C9803; U0003; U0005

== ENCOUNTER 2021-12-31 12:59 | Inpatient (IN) | payer BC, OTHER ==
[2021-12-31] MEDS ORDERED: chlordiazePOXIDE HCL 25 MG CAPSULE PO PRN (13:29)
[2021-12-31] MEDS ORDERED: LOPERAMIDE HCL 2 MG CAPSULE PO PRN (13:29)
[2021-12-31] MEDS ORDERED: ONDANSETRON *ODT* 4 MG TABLET SL PRN (13:29)
[2021-12-31] MEDS ORDERED: BISMUTH SUBSALICYLATE 524 MG/30 ML PO PRN (13:29)
[2021-12-31] MEDS ORDERED: MAG HYDROX/AL HYDROX/SIMETH 30 ML UNIT-DOSE CUP PO PRN (13:29)
[2021-12-31] MEDS ORDERED: MAGNESIUM HYDROX 2400MG/30ML ORAL SUSPENSION 30 ML CUP PO PRN (13:29)
[2021-12-31] MEDS ORDERED: MENTHOL/PHENOL 1 EACH UD MM PRN (13:29)
[2021-12-31] MEDS ORDERED: MAGNESIUM CITRATE 300 ML BOTTLE PO PRN (13:29)
[2021-12-31] MEDS ORDERED: ACETAMINOPHEN 325 MG TABLET (FP) PO PRN (13:29)
[2021-12-31 17:54] LABS: HEMATOCRIT 39.1 % (35.4-49); HEMOGLOBIN 12.3 GM/dL (11.7-16.9); MCH 29.9 pg (25.7-33.7); MCHC 31.3 g/dl (32.0-35.9); MEAN CELL VOLUME 95.3 fl (80-96); MEAN PLT VOLUME 7.1 fl (7.5-11.1); PLATELET COUNT 267 10^3/uL (134-434); RDW 20.8 % (11.9-15.9); WHITE BLOOD COUNT 4.2 K/mm3 (4.0-10.0)
[2021-12-31 18:04] LABS: ALBUMIN 3.9 g/dl (3.4-5.0); CALCIUM 9.2 mg/dL (8.5-10.1)
[2021-12-31 18:05] LABS: CREATININE 0.9 mg/dL (0.55-1.3)
[2021-12-31 18:06] LABS: BILIRUBIN,TOTAL 0.2 mg/dL (0.2-1); TOT PROT 7.4 g/dl (6.4-8.2)
[2021-12-31] MEDS ORDERED: METHOCARBAMOL 500 MG TABLET ONE (18:13)
[2021-12-31] MEDS: hydrOXYzine PAMOATE 25 MG CAPSULE (FP) PO SCH ×3 (19:11→22:37)
[2021-12-31] MEDS: NICOTINE 21 MG/24 HOURS TOPICAL PATCH TD SCH (19:11)
[2021-12-31] MEDS: PRENATAL VITAMINS W/ FOLIC ACID TABLET (FP) PO SCH (19:11)
[2021-12-31] MEDS: MELATONIN 5 MG TABLETS PO SCH (22:37)
[2021-12-31] MEDS: THIAMINE HCL 100 MG TABLET (FP) PO SCH (22:37)
[2021-12-31] MEDS: chlordiazePOXIDE HCL 25 MG CAPSULE PO SCH (22:38)
[2021-12-31] MEDS: BUDESONIDE/FORMETEROL FUMARATE 160/4.5 mcg INHALER IH SCH (22:48)
[2022-01-01] MEDS: chlordiazePOXIDE HCL 25 MG CAPSULE PO SCH ×4 (05:42→22:38)
[2022-01-01] MEDS: hydrOXYzine PAMOATE 25 MG CAPSULE (FP) PO SCH ×5 (05:42→22:39)
[2022-01-01] MEDS ORDERED: EMTRICITAB/RILPIVIRI/TENOF ALA (ODEFSEY) TABLET PO SCH ×2 (10:00)
[2022-01-01] MEDS: PRENATAL VITAMINS W/ FOLIC ACID TABLET (FP) PO SCH (10:26)
[2022-01-01] MEDS: NICOTINE 21 MG/24 HOURS TOPICAL PATCH TD SCH (10:27)
[2022-01-01] MEDS: IBUPROFEN 400 MG TABLET (FP) PO PRN ×2 (10:28→22:40)
[2022-01-01] MEDS: BUDESONIDE/FORMETEROL FUMARATE 160/4.5 mcg INHALER IH SCH ×2 (10:28→22:37)
[2022-01-01] MEDS ORDERED: PNEUMOC 13-VAL CONJ-DIP CRM/PF 0.5 ML DISP.SYRIN IM ONE (12:00)
[2022-01-01] MEDS ORDERED: FLU VACC QS2021-22(6MOS UP)/PF 60 MCG/0.5 ML SYRINGE IM ONE (12:00)
[2022-01-01] MEDS: ALBUTEROL SO4 HFA INHALER IH PRN ×2 (13:58→17:15)
[2022-01-01] MEDS: EMTRICITAB/RILPIVIRI/TENOF ALA (ODEFSEY) TABLET PO SCH (13:58)
[2022-01-01] MEDS: MELATONIN 5 MG TABLETS PO SCH (22:39)
[2022-01-01] MEDS: THIAMINE HCL 100 MG TABLET (FP) PO SCH (22:39)
[2022-01-02] MEDS: NICOTINE 10 MG CARTRIDGE (INHALER) IH PRN ×4 (05:31→18:52)
[2022-01-02] MEDS: hydrOXYzine PAMOATE 25 MG CAPSULE (FP) PO SCH ×5 (05:31→22:32)
[2022-01-02] MEDS: chlordiazePOXIDE HCL 25 MG CAPSULE PO SCH ×4 (05:31→22:32)
[2022-01-02] MEDS: EMTRICITAB/RILPIVIRI/TENOF ALA (ODEFSEY) TABLET PO SCH (08:00)
[2022-01-02 08:06] LABS: SARS-CoV-2 NAA Not Detected (Not Detected)
[2022-01-02] MEDS: BUDESONIDE/FORMETEROL FUMARATE 160/4.5 mcg INHALER IH SCH ×2 (09:38→22:32)
[2022-01-02] MEDS: ALBUTEROL SO4 HFA INHALER IH PRN ×2 (09:39→18:28)
[2022-01-02] MEDS: METHOCARBAMOL 500 MG TABLET PO PRN ×2 (10:29→22:37)
[2022-01-02] MEDS: PRENATAL VITAMINS W/ FOLIC ACID TABLET (FP) PO SCH (10:30)
[2022-01-02] MEDS: NICOTINE 21 MG/24 HOURS TOPICAL PATCH TD SCH (10:30)
[2022-01-02] MEDS: IBUPROFEN 400 MG TABLET (FP) PO PRN (10:32)
[2022-01-02] MEDS: LIDOCAINE 5% TOPICAL PATCH TP SCH (16:11)
[2022-01-02] MEDS: MELATONIN 5 MG TABLETS PO SCH (22:31)
[2022-01-02] MEDS: THIAMINE HCL 100 MG TABLET (FP) PO SCH (22:32)
[2022-01-02] MEDS: LIDOCAINE PATCH REMOVAL MC SCH (22:35)
[2022-01-03] MEDS ORDERED: chlordiazePOXIDE HCL 10 MG CAPSULE PO PRN
[2022-01-03] MEDS: chlordiazePOXIDE HCL 10 MG CAPSULE PO SCH ×4 (05:17→22:13)
[2022-01-03] MEDS: hydrOXYzine PAMOATE 25 MG CAPSULE (FP) PO SCH ×5 (05:19→22:12)
[2022-01-03] MEDS: ALBUTEROL SO4 HFA INHALER IH PRN (07:57)
[2022-01-03] MEDS: EMTRICITAB/RILPIVIRI/TENOF ALA (ODEFSEY) TABLET PO SCH (07:57)
[2022-01-03] MEDS: BUDESONIDE/FORMETEROL FUMARATE 160/4.5 mcg INHALER IH SCH ×2 (10:30→22:12)
[2022-01-03] MEDS: LIDOCAINE 5% TOPICAL PATCH TP SCH (10:30)
[2022-01-03] MEDS: PRENATAL VITAMINS W/ FOLIC ACID TABLET (FP) PO SCH (10:31)
[2022-01-03] MEDS: NICOTINE 21 MG/24 HOURS TOPICAL PATCH TD SCH (10:31)
[2022-01-03] MEDS: IBUPROFEN 400 MG TABLET (FP) PO PRN (10:34)
[2022-01-03] MEDS: METHOCARBAMOL 500 MG TABLET PO PRN ×2 (10:34→22:14)
[2022-01-03] MEDS: NICOTINE 10 MG CARTRIDGE (INHALER) IH PRN ×3 (10:42→22:45)
[2022-01-03] MEDS: guaiFENesin 200 MG/10 ML 10 ML UNIT-DOSE CUPS PO PRN (18:17)
[2022-01-03] MEDS: THIAMINE HCL 100 MG TABLET (FP) PO SCH (22:12)
[2022-01-03] MEDS: MELATONIN 5 MG TABLETS PO SCH (22:12)
[2022-01-03] MEDS: LIDOCAINE PATCH REMOVAL MC SCH (22:14)
[2022-01-04] MEDS: chlordiazePOXIDE HCL 10 MG CAPSULE PO SCH ×2 (06:04→18:07)
[2022-01-04] MEDS: hydrOXYzine PAMOATE 25 MG CAPSULE (FP) PO SCH ×5 (06:05→22:28)
[2022-01-04] MEDS: NICOTINE 10 MG CARTRIDGE (INHALER) IH PRN ×5 (06:39→22:30)
[2022-01-04] MEDS: EMTRICITAB/RILPIVIRI/TENOF ALA (ODEFSEY) TABLET PO SCH (07:09)
[2022-01-04] MEDS: BUDESONIDE/FORMETEROL FUMARATE 160/4.5 mcg INHALER IH SCH ×2 (10:39→22:27)
[2022-01-04] MEDS: PRENATAL VITAMINS W/ FOLIC ACID TABLET (FP) PO SCH (10:39)
[2022-01-04] MEDS: NICOTINE 21 MG/24 HOURS TOPICAL PATCH TD SCH (10:40)
[2022-01-04] MEDS: ACETAMINOPHEN 325 MG TABLET (FP) PO PRN ×2 (10:41→22:52)
[2022-01-04] MEDS: LIDOCAINE 5% TOPICAL PATCH TP SCH (10:41)
[2022-01-04] MEDS: ALBUTEROL SO4 HFA INHALER IH PRN ×2 (10:43→22:27)
[2022-01-04] MEDS: IBUPROFEN 400 MG TABLET (FP) PO PRN (18:12)
[2022-01-04] MEDS: METHOCARBAMOL 500 MG TABLET PO PRN (22:28)
[2022-01-04] MEDS: MELATONIN 5 MG TABLETS PO SCH (22:28)
[2022-01-04] MEDS: THIAMINE HCL 100 MG TABLET (FP) PO SCH (22:28)
[2022-01-04] MEDS: LIDOCAINE PATCH REMOVAL MC SCH (22:29)
[2022-01-04] MEDS: guaiFENesin 200 MG/10 ML 10 ML UNIT-DOSE CUPS PO PRN (23:13)
[2022-01-05] MEDS: ALBUTEROL SO4 HFA INHALER IH PRN ×2 (03:51→10:30)
[2022-01-05] MEDS ORDERED: chlordiazePOXIDE HCL 10 MG CAPSULE PO ONE (05:00)
[2022-01-05] MEDS: hydrOXYzine PAMOATE 25 MG CAPSULE (FP) PO SCH ×2 (05:45→10:31)
[2022-01-05] MEDS: EMTRICITAB/RILPIVIRI/TENOF ALA (ODEFSEY) TABLET PO SCH (07:04)
[2022-01-05] MEDS: BUDESONIDE/FORMETEROL FUMARATE 160/4.5 mcg INHALER IH SCH (10:30)
[2022-01-05] MEDS: PRENATAL VITAMINS W/ FOLIC ACID TABLET (FP) PO SCH (10:30)
[2022-01-05] MEDS: NICOTINE 21 MG/24 HOURS TOPICAL PATCH TD SCH (10:31)
[2022-01-05] MEDS: LIDOCAINE 5% TOPICAL PATCH TP SCH (10:31)
[2022-01-05] MEDS: NICOTINE 10 MG CARTRIDGE (INHALER) IH PRN (10:32)
[2022-01-05] MEDS: METHOCARBAMOL 500 MG TABLET PO PRN (10:33)
[2022-01-05 13:01] VITALS: BP 113/76; PULSE 102; TEMP 98.9
== END 2022-01-05 13:53 | disposition home or self-care (01) | DRG 897 ==
LOC: YASAS 12:59 → Y3N 18:23
PROVIDERS: ADMIT Allergy & Immunology; ATTEND Allergy & Immunology
PROC: HZ2ZZZZ Detoxification Services for Substance Abuse Treatment (ICD-10-PCS; principal; 2021-12-31)
DX: F10.230 Alcohol dependence with withdrawal, uncomplicated (principal); B20 Human immunodeficiency virus [HIV] disease; F12.20 Cannabis dependence, uncomplicated; F17.210 Nicotine dependence, cigarettes, uncomplicated; F19.24 Other psychoactive substance dependence with psychoactive substance-induced mood disorder; F31.9 Bipolar disorder, unspecified; F41.9 Anxiety disorder, unspecified; J45.909 Unspecified asthma, uncomplicated; M25.511 Pain in right shoulder; M25.512 Pain in left shoulder; R74.8 Abnormal levels of other serum enzymes; Z87.19 Personal history of other diseases of the digestive system
CPT/HCPCS: 36415; 80053; 85027; 86780; C9803-CS; U0003; U0005

== ENCOUNTER 2022-02-05 12:07 | Inpatient (IN) | payer OTHER ==
[2022-02-05] MEDS ORDERED: MAG HYDROX/AL HYDROX/SIMETH 30 ML UNIT-DOSE CUP PO PRN (12:44)
[2022-02-05] MEDS ORDERED: IBUPROFEN 400 MG TABLET (FP) PO PRN (12:44)
[2022-02-05] MEDS ORDERED: DICYCLOMINE HCL 10 MG CAPSULE PO PRN (12:44)
[2022-02-05] MEDS ORDERED: METHOCARBAMOL 500 MG TABLET PO PRN (12:44)
[2022-02-05] MEDS ORDERED: LOPERAMIDE HCL 2 MG CAPSULE PO PRN (12:44)
[2022-02-05] MEDS ORDERED: ACETAMINOPHEN 325 MG TABLET (FP) PO PRN ×2 (12:44)
[2022-02-05] MEDS ORDERED: BISMUTH SUBSALICYLATE 262 MG/15 ML BTL PO PRN (12:44)
[2022-02-05] MEDS ORDERED: chlordiazePOXIDE HCL 25 MG CAPSULE PO PRN (12:44)
[2022-02-05] MEDS ORDERED: MAGNESIUM CITRATE 300 ML BOTTLE PO PRN (12:44)
[2022-02-05] MEDS ORDERED: MAGNESIUM HYDROX 2400MG/30ML ORAL SUSPENSION 30 ML CUP PO PRN (12:44)
[2022-02-05] MEDS ORDERED: ONDANSETRON *ODT* 4 MG TABLET SL PRN (12:44)
[2022-02-05] MEDS ORDERED: BENZOCAINE/MENTHOL (CHLORASEPTIC ) LOZENGE MM PRN (12:44)
[2022-02-05] MEDS ORDERED: NICOTINE 10 MG CARTRIDGE (INHALER) IH PRN (12:44)
[2022-02-05 13:45] VITALS: BMI 20.5
[2022-02-05 17:17] LABS: HEMATOCRIT 45.3 % (35.4-49); HEMOGLOBIN 14.7 GM/dL (11.7-16.9); MCH 30.8 pg (25.7-33.7); MCHC 32.4 g/dl (32.0-35.9); MEAN CELL VOLUME 94.9 fl (80-96); MEAN PLT VOLUME 7.8 fl (7.5-11.1); PLATELET COUNT 185 10^3/uL (134-434); RBC 4.77 M/mm3 (4.00-5.60); RDW 18.4 % (11.9-15.9)
[2022-02-05 17:42] LABS: CALCIUM 9.4 mg/dL (8.5-10.1)
[2022-02-05 17:43] LABS: ALBUMIN 4.2 g/dl (3.4-5.0); BLOOD UREA NITROGEN 18.1 mg/dL (7-18)
[2022-02-05 17:46] LABS: CREATININE 1.1 mg/dL (0.55-1.3)
[2022-02-05 17:47] LABS: BILIRUBIN,TOTAL 0.5 mg/dL (0.2-1); TOT PROT 8.2 g/dl (6.4-8.2)
[2022-02-05] MEDS: chlordiazePOXIDE HCL 25 MG CAPSULE PO SCH ×2 (18:15→22:15)
[2022-02-05] MEDS: hydrOXYzine PAMOATE 25 MG CAPSULE (FP) PO SCH ×3 (18:16→22:15)
[2022-02-05] MEDS: PRENATAL VITAMINS W/ FOLIC ACID TABLET (FP) PO SCH (18:16)
[2022-02-05] MEDS: NICOTINE 14 MG/24 HOURS TOPICAL PATCH TD SCH (18:16)
[2022-02-05] MEDS: ALBUTEROL SO4 HFA INHALER IH PRN (22:14)
[2022-02-05] MEDS: MONTELUKAST NA 10 MG TABLET PO SCH (22:15)
[2022-02-05] MEDS: THIAMINE HCL 100 MG TABLET (FP) PO SCH (22:15)
[2022-02-05] MEDS: BUDESONIDE/FORMETEROL FUMARATE 160/4.5 mcg INHALER IH SCH (22:15)
[2022-02-05] MEDS: MELATONIN 5 MG TABLETS PO SCH (22:16)
[2022-02-06] MEDS: chlordiazePOXIDE HCL 25 MG CAPSULE PO SCH ×4 (06:52→22:59)
[2022-02-06] MEDS: hydrOXYzine PAMOATE 25 MG CAPSULE (FP) PO SCH ×5 (06:53→23:00)
[2022-02-06] MEDS: ALBUTEROL SO4 HFA INHALER IH PRN ×2 (07:56→22:59)
[2022-02-06] MEDS ORDERED: TENOFOVIR ALAFENAMIDE FUMARATE 25 MG PO SCH (10:00)
[2022-02-06] MEDS ORDERED: SULFAMETHOXAZOLE/TRIMETHOPRIM 400MG/80MG S.S. TABLET PO SCH (10:00)
[2022-02-06] MEDS ORDERED: RILPIVIRINE HCL 25 MG TABLET PO SCH (10:00)
[2022-02-06] MEDS: EMTRICITAB/RILPIVIRI/TENOF ALA (ODEFSEY) TABLET PO SCH (11:01)
[2022-02-06] MEDS: SULFAMETHOXAZOLE/TRIMETHOPRIM 800MG/160MG D.S. TABLET PO SCH (11:01)
[2022-02-06] MEDS: BUDESONIDE/FORMETEROL FUMARATE 160/4.5 mcg INHALER IH SCH ×2 (11:01→22:59)
[2022-02-06] MEDS: PRENATAL VITAMINS W/ FOLIC ACID TABLET (FP) PO SCH (11:02)
[2022-02-06] MEDS: NICOTINE 14 MG/24 HOURS TOPICAL PATCH TD SCH (11:07)
[2022-02-06] MEDS: MELATONIN 5 MG TABLETS PO SCH (23:00)
[2022-02-06] MEDS: THIAMINE HCL 100 MG TABLET (FP) PO SCH (23:00)
[2022-02-06] MEDS: MONTELUKAST NA 10 MG TABLET PO SCH (23:00)
[2022-02-07] MEDS: chlordiazePOXIDE HCL 25 MG CAPSULE PO SCH ×4 (06:06→22:40)
[2022-02-07] MEDS: hydrOXYzine PAMOATE 25 MG CAPSULE (FP) PO SCH ×5 (06:07→22:40)
[2022-02-07] MEDS: ALBUTEROL SO4 HFA INHALER IH PRN ×2 (06:08→22:40)
[2022-02-07] MEDS: EMTRICITAB/RILPIVIRI/TENOF ALA (ODEFSEY) TABLET PO SCH (07:00)
[2022-02-07] MEDS: PRENATAL VITAMINS W/ FOLIC ACID TABLET (FP) PO SCH (10:32)
[2022-02-07] MEDS: BUDESONIDE/FORMETEROL FUMARATE 160/4.5 mcg INHALER IH SCH ×2 (10:32→22:41)
[2022-02-07] MEDS: SULFAMETHOXAZOLE/TRIMETHOPRIM 800MG/160MG D.S. TABLET PO SCH (10:32)
[2022-02-07] MEDS: NICOTINE 14 MG/24 HOURS TOPICAL PATCH TD SCH (10:49)
[2022-02-07] MEDS: MONTELUKAST NA 10 MG TABLET PO SCH (22:40)
[2022-02-07] MEDS: THIAMINE HCL 100 MG TABLET (FP) PO SCH (22:40)
[2022-02-07] MEDS: MELATONIN 5 MG TABLETS PO SCH (23:03)
[2022-02-08] MEDS ORDERED: chlordiazePOXIDE HCL 10 MG CAPSULE PO PRN
[2022-02-08] MEDS: EMTRICITAB/RILPIVIRI/TENOF ALA (ODEFSEY) TABLET PO SCH (07:23)
[2022-02-08] MEDS: hydrOXYzine PAMOATE 25 MG CAPSULE (FP) PO SCH ×5 (07:24→22:34)
[2022-02-08] MEDS: chlordiazePOXIDE HCL 10 MG CAPSULE PO SCH ×4 (07:24→22:34)
[2022-02-08] MEDS: ALBUTEROL SO4 HFA INHALER IH PRN ×2 (07:49→17:36)
[2022-02-08 07:57] LABS: SARS-CoV-2 NAA Not Detected
[2022-02-08] MEDS: PRENATAL VITAMINS W/ FOLIC ACID TABLET (FP) PO SCH (09:51)
[2022-02-08] MEDS: SULFAMETHOXAZOLE/TRIMETHOPRIM 800MG/160MG D.S. TABLET PO SCH (09:51)
[2022-02-08] MEDS: NICOTINE 14 MG/24 HOURS TOPICAL PATCH TD SCH (10:46)
[2022-02-08] MEDS: BUDESONIDE/FORMETEROL FUMARATE 160/4.5 mcg INHALER IH SCH ×2 (10:47→22:35)
[2022-02-08] MEDS: MELATONIN 5 MG TABLETS PO SCH (22:33)
[2022-02-08] MEDS: THIAMINE HCL 100 MG TABLET (FP) PO SCH (22:34)
[2022-02-08] MEDS: MONTELUKAST NA 10 MG TABLET PO SCH (22:34)
[2022-02-09] MEDS: hydrOXYzine PAMOATE 25 MG CAPSULE (FP) PO SCH ×5 (06:57→23:19)
[2022-02-09] MEDS: chlordiazePOXIDE HCL 10 MG CAPSULE PO SCH ×2 (06:57→18:52)
[2022-02-09] MEDS: EMTRICITAB/RILPIVIRI/TENOF ALA (ODEFSEY) TABLET PO SCH (07:07)
[2022-02-09] MEDS: ALBUTEROL SO4 HFA INHALER IH PRN ×2 (07:08→10:38)
[2022-02-09] MEDS ORDERED: INSULIN SLIDING SCALE (NOVOLOG) 1 VIAL SQ ONE (07:22)
[2022-02-09] MEDS: NICOTINE 14 MG/24 HOURS TOPICAL PATCH TD SCH (10:37)
[2022-02-09] MEDS: PRENATAL VITAMINS W/ FOLIC ACID TABLET (FP) PO SCH (10:37)
[2022-02-09] MEDS: BUDESONIDE/FORMETEROL FUMARATE 160/4.5 mcg INHALER IH SCH ×2 (10:38→23:18)
[2022-02-09] MEDS: SULFAMETHOXAZOLE/TRIMETHOPRIM 800MG/160MG D.S. TABLET PO SCH (10:44)
[2022-02-09] MEDS: THIAMINE HCL 100 MG TABLET (FP) PO SCH (23:18)
[2022-02-09] MEDS: MELATONIN 5 MG TABLETS PO SCH (23:18)
[2022-02-09] MEDS: MONTELUKAST NA 10 MG TABLET PO SCH (23:19)
[2022-02-10] MEDS ORDERED: chlordiazePOXIDE HCL 10 MG CAPSULE PO ONE (05:00)
[2022-02-10] MEDS: hydrOXYzine PAMOATE 25 MG CAPSULE (FP) PO SCH (06:37)
[2022-02-10] MEDS: EMTRICITAB/RILPIVIRI/TENOF ALA (ODEFSEY) TABLET PO SCH (08:15)
[2022-02-10 08:46] VITALS: BP 106/79; PULSE 82; TEMP 96.9
== END 2022-02-10 09:47 | disposition home or self-care (01) | DRG 896 ==
LOC: YASAS 12:07 → Y3N 14:52
PROVIDERS: ADMIT Allergy & Immunology; ATTEND Allergy & Immunology
PROC: HZ2ZZZZ Detoxification Services for Substance Abuse Treatment (ICD-10-PCS; principal; 2022-02-05)
DX: F10.230 Alcohol dependence with withdrawal, uncomplicated (principal); U07.1 COVID-19; J45.901 Unspecified asthma with (acute) exacerbation; B20 Human immunodeficiency virus [HIV] disease; F12.20 Cannabis dependence, uncomplicated; F17.210 Nicotine dependence, cigarettes, uncomplicated; F31.9 Bipolar disorder, unspecified; F20.9 Schizophrenia, unspecified; F41.9 Anxiety disorder, unspecified; R74.01 Elevation of levels of liver transaminase levels; Z90.49 Acquired absence of other specified parts of digestive tract
CPT/HCPCS: 36415; 80053; 82962; 85027; 86780; 93005; 93010; C9803-CS; U0003; U0005

== ENCOUNTER 2022-02-06 11:36 | Emergency (ER) | payer OTHER ==
[2022-02-06 12:03] VITALS: TEMP 98.1
[2022-02-06 12:04] VITALS: BMI 19.5
[2022-02-06] MEDS ORDERED: methylPREDNISolone NA SUCC 125 MG/2 ML VIAL IVPUSH ONE (12:27)
[2022-02-06] MEDS ORDERED: ACETAMINOPHEN 1000 MG/100 ML BAG IVPB ONE (12:27)
[2022-02-06] MEDS ORDERED: SODIUM CHLORIDE 0.9% 500 ML INFUS.BAG IV ONE (12:27)
[2022-02-06] MEDS ORDERED: ACETAMINOPHEN INJECTION 100 ML IVPB ONE (12:46)
[2022-02-06] MEDS ORDERED: chlordiazePOXIDE HCL 25 MG CAPSULE PO ONE (12:46)
[2022-02-06] MEDS ORDERED: methylPREDNISolone NA SUCC 125 MG/2 ML VIAL ONE (12:47)
[2022-02-06] MEDS ORDERED: predniSONE 20 MG TABLET (UD) PO ONE (13:01)
[2022-02-06] MEDS ORDERED: chlordiazePOXIDE HCL 25 MG CAPSULE ONE (13:05)
[2022-02-06] MEDS ORDERED: predniSONE 20 MG TABLET (UD) ONE (13:05)
[2022-02-06] MEDS: ALBUTEROL SO4 2.5/IPRATROPIUM 0.5 INH SOL 3 ML VIAL.NEB. NEB SCH ×3 (13:20→13:35)
[2022-02-06 13:45] LABS: BASO % 0.6 % (0-2.0); EOS % 0.4 % (0-4.5); HEMATOCRIT 41.6 % (35.4-49); HEMOGLOBIN 13.8 GM/dL (11.7-16.9); LYMPH % 22.1 % (8-40); MCH 30.9 pg (25.7-33.7); MCHC 33.2 g/dl (32.0-35.9); MEAN CELL VOLUME 92.8 fl (80-96); MEAN PLT VOLUME 7.7 fl (7.5-11.1); MONO % 9.3 % (3.8-10.2); NEUT % 67.6 % (42.8-82.8); PLATELET COUNT 138 10^3/uL (134-434); RBC 4.48 M/mm3 (4.00-5.60); RDW 18.2 % (11.9-15.9); WHITE BLOOD COUNT 6.2 K/mm3 (4.0-10.0)
[2022-02-06 14:00] LABS: CALCIUM 9.6 mg/dL (8.5-10.1)
[2022-02-06 14:02] LABS: ALBUMIN 3.8 g/dl (3.4-5.0); BLOOD UREA NITROGEN 12.6 mg/dL (7-18)
[2022-02-06 14:04] LABS: CREATININE 0.7 mg/dL (0.55-1.3)
[2022-02-06 14:05] LABS: BILIRUBIN,TOTAL 0.8 mg/dL (0.2-1)
[2022-02-06 15:27] VITALS: BP 125/80; PULSE 82
== END 2022-02-06 17:30 | disposition home or self-care (01) ==
LOC: JER 11:36
PROC: 3E0F7GC Introduction of Other Therapeutic Substance into Respiratory Tract, Via Natural or Artificial Opening (ICD-10-PCS; principal; 2022-02-06)
DX: U07.1 COVID-19 (principal)
CPT/HCPCS: 36415; 71045-TC-FY; 80053; 85025; 87804; 93005; 93010; 94640; 99285-25; C9803-CS; U0003; U0005

== ENCOUNTER 2022-03-05 10:02 | Inpatient (IN) | payer OTHER ==
[2022-03-05 10:47] VITALS: BMI 20.2
[2022-03-05] MEDS ORDERED: MAGNESIUM CITRATE 300 ML BOTTLE PO PRN (11:39)
[2022-03-05] MEDS ORDERED: BISMUTH SUBSALICYLATE 262 MG/15 ML BTL PO PRN (11:39)
[2022-03-05] MEDS ORDERED: METHOCARBAMOL 500 MG TABLET PO PRN (11:39)
[2022-03-05] MEDS ORDERED: LOPERAMIDE HCL 2 MG CAPSULE PO PRN (11:39)
[2022-03-05] MEDS ORDERED: ONDANSETRON *ODT* 4 MG TABLET SL PRN (11:39)
[2022-03-05] MEDS ORDERED: DICYCLOMINE HCL 10 MG CAPSULE PO PRN (11:39)
[2022-03-05] MEDS ORDERED: MAGNESIUM HYDROX 2400MG/30ML ORAL SUSPENSION 30 ML CUP PO PRN (11:39)
[2022-03-05] MEDS ORDERED: IBUPROFEN 400 MG TABLET (FP) PO PRN (11:39)
[2022-03-05] MEDS ORDERED: BENZOCAINE/MENTHOL (CHLORASEPTIC ) LOZENGE MM PRN (11:39)
[2022-03-05] MEDS ORDERED: ACETAMINOPHEN 325 MG TABLET (FP) PO PRN ×2 (11:39)
[2022-03-05] MEDS ORDERED: MAG HYDROX/AL HYDROX/SIMETH 30 ML UNIT-DOSE CUP PO PRN (11:39)
[2022-03-05] MEDS: hydrOXYzine PAMOATE 25 MG CAPSULE (FP) PO SCH ×3 (13:03→22:34)
[2022-03-05] MEDS: PRENATAL VITAMINS W/ FOLIC ACID TABLET (FP) PO SCH (13:03)
[2022-03-05] MEDS: chlordiazePOXIDE HCL 25 MG CAPSULE PO PRN (13:03)
[2022-03-05] MEDS: NICOTINE 14 MG/24 HOURS TOPICAL PATCH TD SCH (13:05)
[2022-03-05] MEDS: BUDESONIDE/FORMETEROL FUMARATE 160/4.5 mcg INHALER IH SCH ×2 (13:05→22:33)
[2022-03-05] MEDS: chlordiazePOXIDE HCL 25 MG CAPSULE PO SCH ×2 (17:30→22:34)
[2022-03-05] MEDS: ALBUTEROL SO4 HFA INHALER IH PRN ×2 (17:33→22:36)
[2022-03-05] MEDS: THIAMINE HCL 100 MG TABLET (FP) PO SCH (22:34)
[2022-03-05] MEDS: MELATONIN 5 MG TABLETS PO SCH (22:34)
[2022-03-06] MEDS: chlordiazePOXIDE HCL 25 MG CAPSULE PO SCH ×4 (05:56→22:11)
[2022-03-06] MEDS: hydrOXYzine PAMOATE 25 MG CAPSULE (FP) PO SCH ×2 (05:56→10:29)
[2022-03-06] MEDS: BUDESONIDE/FORMETEROL FUMARATE 160/4.5 mcg INHALER IH SCH ×2 (10:28→22:09)
[2022-03-06] MEDS: ALBUTEROL SO4 HFA INHALER IH PRN ×2 (10:28→22:10)
[2022-03-06] MEDS: NICOTINE 14 MG/24 HOURS TOPICAL PATCH TD SCH (10:28)
[2022-03-06] MEDS: PRENATAL VITAMINS W/ FOLIC ACID TABLET (FP) PO SCH (10:29)
[2022-03-06 10:48] LABS: HEMATOCRIT 40.5 % (35.4-49); HEMOGLOBIN 13.2 GM/dL (11.7-16.9); MCH 30.6 pg (25.7-33.7); MCHC 32.7 g/dl (32.0-35.9); MEAN CELL VOLUME 93.6 fl (80-96); MEAN PLT VOLUME 7.9 fl (7.5-11.1); PLATELET COUNT 154 10^3/uL (134-434); RBC 4.33 M/mm3 (4.00-5.60); RDW 16.6 % (11.9-15.9); WHITE BLOOD COUNT 6.6 K/mm3 (4.0-10.0)
[2022-03-06 11:01] LABS: ALBUMIN 3.2 g/dl (3.4-5.0); BLOOD UREA NITROGEN 10.6 mg/dL (7-18); CALCIUM 9.1 mg/dL (8.5-10.1)
[2022-03-06 11:05] LABS: BILIRUBIN,TOTAL 0.9 mg/dL (0.2-1)
[2022-03-06 11:09] LABS: CREATININE 0.6 mg/dL (0.55-1.3)
[2022-03-06] MEDS ORDERED: POTASSIUM CHLORIDE TABS 20 MEQ TABLET.ER (FP) PO ONE (12:45)
[2022-03-06] MEDS: EMTRICITAB/RILPIVIRI/TENOF ALA (ODEFSEY) TABLET PO SCH (13:55)
[2022-03-06] MEDS: SULFAMETHOXAZOLE/TRIMETHOPRIM 800MG/160MG D.S. TABLET PO SCH (13:55)
[2022-03-06] MEDS: hydrOXYzine PAMOATE 25 MG CAPSULE (FP) PO PRN ×2 (18:17→22:09)
[2022-03-06] MEDS: THIAMINE HCL 100 MG TABLET (FP) PO SCH (22:09)
[2022-03-06] MEDS: MELATONIN 5 MG TABLETS PO SCH (22:09)
[2022-03-06] MEDS: MONTELUKAST NA 10 MG TABLET PO SCH (22:09)
[2022-03-07] MEDS: chlordiazePOXIDE HCL 25 MG CAPSULE PO SCH ×4 (05:21→22:12)
[2022-03-07] MEDS: EMTRICITAB/RILPIVIRI/TENOF ALA (ODEFSEY) TABLET PO SCH (08:11)
[2022-03-07] MEDS: PRENATAL VITAMINS W/ FOLIC ACID TABLET (FP) PO SCH (10:56)
[2022-03-07] MEDS: SULFAMETHOXAZOLE/TRIMETHOPRIM 800MG/160MG D.S. TABLET PO SCH (10:57)
[2022-03-07] MEDS: BUDESONIDE/FORMETEROL FUMARATE 160/4.5 mcg INHALER IH SCH ×2 (10:58→22:14)
[2022-03-07] MEDS: NICOTINE 14 MG/24 HOURS TOPICAL PATCH TD SCH (10:58)
[2022-03-07] MEDS: ALBUTEROL SO4 HFA INHALER IH PRN ×2 (10:58→20:21)
[2022-03-07] MEDS: chlordiazePOXIDE HCL 25 MG CAPSULE PO PRN (20:19)
[2022-03-07] MEDS: THIAMINE HCL 100 MG TABLET (FP) PO SCH (22:12)
[2022-03-07] MEDS: MONTELUKAST NA 10 MG TABLET PO SCH (22:12)
[2022-03-07] MEDS: MELATONIN 5 MG TABLETS PO SCH (22:15)
[2022-03-08] MEDS ORDERED: chlordiazePOXIDE HCL 10 MG CAPSULE PO PRN
[2022-03-08] MEDS: chlordiazePOXIDE HCL 10 MG CAPSULE PO SCH ×4 (06:21→22:23)
[2022-03-08] MEDS: EMTRICITAB/RILPIVIRI/TENOF ALA (ODEFSEY) TABLET PO SCH (07:23)
[2022-03-08] MEDS: NICOTINE 14 MG/24 HOURS TOPICAL PATCH TD SCH (10:52)
[2022-03-08] MEDS: PRENATAL VITAMINS W/ FOLIC ACID TABLET (FP) PO SCH (10:52)
[2022-03-08] MEDS: BUDESONIDE/FORMETEROL FUMARATE 160/4.5 mcg INHALER IH SCH ×2 (10:53→22:22)
[2022-03-08] MEDS: SULFAMETHOXAZOLE/TRIMETHOPRIM 800MG/160MG D.S. TABLET PO SCH (10:53)
[2022-03-08] MEDS: NICOTINE 10 MG CARTRIDGE (INHALER) IH PRN ×2 (19:03→22:21)
[2022-03-08] MEDS: MELATONIN 5 MG TABLETS PO SCH (22:22)
[2022-03-08] MEDS: THIAMINE HCL 100 MG TABLET (FP) PO SCH (22:23)
[2022-03-08] MEDS: MONTELUKAST NA 10 MG TABLET PO SCH (22:23)
[2022-03-09] MEDS: chlordiazePOXIDE HCL 10 MG CAPSULE PO SCH ×2 (05:55→18:00)
[2022-03-09] MEDS: NICOTINE 10 MG CARTRIDGE (INHALER) IH PRN ×5 (05:56→22:36)
[2022-03-09] MEDS: EMTRICITAB/RILPIVIRI/TENOF ALA (ODEFSEY) TABLET PO SCH (07:04)
[2022-03-09] MEDS: BUDESONIDE/FORMETEROL FUMARATE 160/4.5 mcg INHALER IH SCH ×2 (11:00→21:21)
[2022-03-09] MEDS: PRENATAL VITAMINS W/ FOLIC ACID TABLET (FP) PO SCH (11:01)
[2022-03-09] MEDS: SULFAMETHOXAZOLE/TRIMETHOPRIM 800MG/160MG D.S. TABLET PO SCH (11:01)
[2022-03-09] MEDS: NICOTINE 14 MG/24 HOURS TOPICAL PATCH TD SCH (11:01)
[2022-03-09] MEDS: hydrOXYzine PAMOATE 25 MG CAPSULE (FP) PO PRN (11:02)
[2022-03-09] MEDS: ALBUTEROL SO4 HFA INHALER IH PRN (21:20)
[2022-03-09] MEDS: MONTELUKAST NA 10 MG TABLET PO SCH (22:12)
[2022-03-09] MEDS: MELATONIN 5 MG TABLETS PO SCH (22:12)
[2022-03-09] MEDS: THIAMINE HCL 100 MG TABLET (FP) PO SCH (22:12)
[2022-03-10] MEDS ORDERED: chlordiazePOXIDE HCL 10 MG CAPSULE PO ONE (05:00)
[2022-03-10] MEDS: NICOTINE 10 MG CARTRIDGE (INHALER) IH PRN (06:51)
[2022-03-10] MEDS: EMTRICITAB/RILPIVIRI/TENOF ALA (ODEFSEY) TABLET PO SCH (08:35)
[2022-03-10] MEDS: NICOTINE 14 MG/24 HOURS TOPICAL PATCH TD SCH (10:26)
[2022-03-10] MEDS: PRENATAL VITAMINS W/ FOLIC ACID TABLET (FP) PO SCH (10:27)
[2022-03-10] MEDS: SULFAMETHOXAZOLE/TRIMETHOPRIM 800MG/160MG D.S. TABLET PO SCH (10:27)
[2022-03-10] MEDS: BUDESONIDE/FORMETEROL FUMARATE 160/4.5 mcg INHALER IH SCH ×2 (10:27→22:30)
[2022-03-10] MEDS: MELATONIN 5 MG TABLETS PO SCH (22:28)
[2022-03-10] MEDS: MONTELUKAST NA 10 MG TABLET PO SCH (22:28)
[2022-03-10] MEDS: THIAMINE HCL 100 MG TABLET (FP) PO SCH (22:28)
[2022-03-10] MEDS: ALBUTEROL SO4 HFA INHALER IH PRN (22:31)
[2022-03-11] MEDS: ALBUTEROL SO4 HFA INHALER IH PRN (05:06)
[2022-03-11] MEDS: EMTRICITAB/RILPIVIRI/TENOF ALA (ODEFSEY) TABLET PO SCH (07:10)
[2022-03-11 08:46] VITALS: BP 100/74; PULSE 92; TEMP 97.1
[2022-03-11] MEDS: BUDESONIDE/FORMETEROL FUMARATE 160/4.5 mcg INHALER IH SCH (10:13)
[2022-03-11] MEDS: NICOTINE 14 MG/24 HOURS TOPICAL PATCH TD SCH (10:13)
[2022-03-11] MEDS: SULFAMETHOXAZOLE/TRIMETHOPRIM 800MG/160MG D.S. TABLET PO SCH (10:13)
[2022-03-11] MEDS: PRENATAL VITAMINS W/ FOLIC ACID TABLET (FP) PO SCH (10:13)
== END 2022-03-11 09:53 | disposition home or self-care (01) | DRG 897 ==
LOC: YASAS 10:02 → Y3N 12:28
PROVIDERS: ADMIT Allergy & Immunology; ATTEND Surgery
PROC: HZ2ZZZZ Detoxification Services for Substance Abuse Treatment (ICD-10-PCS; principal; 2022-03-05)
DX: F10.230 Alcohol dependence with withdrawal, uncomplicated (principal); B20 Human immunodeficiency virus [HIV] disease; F12.20 Cannabis dependence, uncomplicated; F17.210 Nicotine dependence, cigarettes, uncomplicated; F20.9 Schizophrenia, unspecified; F31.9 Bipolar disorder, unspecified; F19.24 Other psychoactive substance dependence with psychoactive substance-induced mood disorder; F41.9 Anxiety disorder, unspecified; J45.909 Unspecified asthma, uncomplicated; Z86.16 Personal history of COVID-19
CPT/HCPCS: 36415; 80053; 84132; 85027; 86780; C9803-CS; U0003; U0005

== ENCOUNTER 2022-06-09 22:22 | Inpatient (IN) | payer OTHER ==
[2022-06-09] MEDS: ALBUTEROL SO4 2.5/IPRATROPIUM 0.5 INH SOL 3 ML VIAL.NEB. NEB SCH (23:42)
[2022-06-10 00:28] LABS: HEMATOCRIT 43.3 % (35.4-49); HEMOGLOBIN 14.2 GM/dL (11.7-16.9); MCH 30.2 pg (25.7-33.7); MCHC 32.9 g/dl (32.0-35.9); MEAN CELL VOLUME 91.5 fl (80-96); MEAN PLT VOLUME 7.9 fl (7.5-11.1); PLATELET COUNT 122 10^3/uL (134-434); RBC 4.73 M/mm3 (4.00-5.60); RDW 17.3 % (11.9-15.9)
[2022-06-10] MEDS ORDERED: MAGNESIUM SULF 50% (8.12 MEQ/2 ML-1 GM VIAL) IVPB ONE ×2 (00:34→01:28)
[2022-06-10] MEDS ORDERED: methylPREDNISolone NA SUCC 125 MG/2 ML VIAL IVPUSH ONE (00:34)
[2022-06-10] MEDS ORDERED: LORazepam 2 MG TABLET PO ONE (00:35)
[2022-06-10 00:48] LABS: BLOOD UREA NITROGEN 19.9 mg/dL (7-18); CALCIUM 9.2 mg/dL (8.5-10.1)
[2022-06-10 00:52] LABS: CREATININE 0.7 mg/dL (0.55-1.3)
[2022-06-10 00:54] LABS: BILIRUBIN,TOTAL 0.7 mg/dL (0.2-1); TOT PROT 8.2 g/dl (6.4-8.2)
[2022-06-10] MEDS ORDERED: LORazepam 1 MG TABLET ONE ×3 (00:56→10:30)
[2022-06-10] MEDS ORDERED: ALBUTEROL SO4 2.5/IPRATROPIUM 0.5 INH SOL 3 ML VIAL.NEB. NEB ONE (00:56)
[2022-06-10] MEDS ORDERED: MAGNESIUM SULFATE IN WATER 2 GM/50 ML IVPB IVPB ONE (00:57)
[2022-06-10] MEDS ORDERED: methylPREDNISolone NA SUCC 125 MG/2 ML VIAL ONE (00:57)
[2022-06-10 01:10] LABS: MAGNESIUM 1.6 mg/dL (1.8-2.4)
[2022-06-10] MEDS: ALBUTEROL SO4 2.5/IPRATROPIUM 0.5 INH SOL 3 ML VIAL.NEB. NEB SCH (01:19)
[2022-06-10] MEDS ORDERED: SODIUM CHLORIDE 0.9% 500 ML INFUS.BAG IV ONE (02:17)
[2022-06-10] MEDS ORDERED: LORazepam 1 MG TABLET PO PRN (06:06)
[2022-06-10] MEDS ORDERED: ALBUTEROL SO4 2.5/IPRATROPIUM 0.5 INH SOL 3 ML VIAL.NEB. NEB PRN (06:41)
[2022-06-10] MEDS: LORazepam 1 MG TABLET PO SCH ×4 (06:53→23:04)
[2022-06-10] MEDS ORDERED: AZITHROMYCIN IVPB 500 MG in DEXTROSE 5%-WATER - 250 ML IVPB SCH (07:15)
[2022-06-10] MEDS ORDERED: AZITHROMYCIN IVPB 500 MG/250 ML BAG IVPB ONE (07:59)
[2022-06-10] MEDS ORDERED: FOLIC ACID 1 MG TABLET (FP) ONE ×2 (10:14→10:30)
[2022-06-10] MEDS ORDERED: DEXAMETHASONE SOD PHOSPHATE 10 MG/1 ML VIAL ONE (10:14)
[2022-06-10] MEDS ORDERED: ENOXAPARIN NA (PORCINE) 40 MG/0.4 ML DISP.SYRIN SQ ONE (10:14)
[2022-06-10] MEDS ORDERED: THIAMINE HCL 100 MG TABLET (FP) ONE (10:14)
[2022-06-10] MEDS: DEXAMETHASONE SOD PHOSPHATE 10 MG/1 ML VIAL IVPUSH SCH (10:33)
[2022-06-10] MEDS: FOLIC ACID 1 MG TABLET (FP) PO SCH (10:33)
[2022-06-10] MEDS: THIAMINE HCL 100 MG TABLET (FP) PO SCH (10:33)
[2022-06-10] MEDS: ENOXAPARIN NA (PORCINE) 40 MG/0.4 ML DISP.SYRIN SQ SCH (10:33)
[2022-06-10] MEDS: NICOTINE 7 MG/24 HOURS TOPICAL PATCH TD SCH (12:25)
[2022-06-10] MEDS: BUDESONIDE/FORMETEROL FUMARATE 160/4.5 mcg INHALER IH SCH (12:25)
[2022-06-10] MEDS ORDERED: amLODIPine BESYLATE 5 MG TABLET (FP) PO ONE (13:21)
[2022-06-10] MEDS ORDERED: POTASSIUM CHLORIDE TABS 20 MEQ TABLET.ER (FP) PO ONE ×2 (13:45→14:26)
[2022-06-10 17:11] LABS: BASO % 0.1 % (0-2.0); HEMATOCRIT 42.6 % (35.4-49); HEMOGLOBIN 13.9 GM/dL (11.7-16.9); LYMPH % 6.3 % (8-40); MCH 29.6 pg (25.7-33.7); MCHC 32.5 g/dl (32.0-35.9); MONO % 4.4 % (3.8-10.2); NEUT % 89.2 % (42.8-82.8); PLATELET COUNT 115 10^3/uL (134-434); RBC 4.69 M/mm3 (4.00-5.60); RDW 16.9 % (11.9-15.9); WHITE BLOOD COUNT 3.7 K/mm3 (4.0-10.0)
[2022-06-10 17:44] LABS: MAGNESIUM 1.7 mg/dL (1.8-2.4)
[2022-06-10] MEDS ORDERED: MAGNESIUM 2GM/50ML STERILE WATER IVPB IVPB ONE (17:54)
[2022-06-10] MEDS ORDERED: NAPH,MB-DB/K PH,MBDB POWDER PACKET PO ONE (17:54)
[2022-06-10 22:35] LABS: EPI CELLS 3 /uL (0-25.1); HYALINE CASTS 0 /uL (0-3.1); PH,URINE >= 9.0 (5.0-8.0); URINE APPEARANCE CLEAR; URINE BACTERIA 112 /uL (0-1359); URINE BILIRUBIN NEGATIVE (NEGATIVE); URINE COLOR YELLOW; URINE GLUCOSE (UA) NEGATIVE (NEGATIVE); URINE KETONE TRACE (NEGATIVE); URINE LEUK ESTERASE NEGATIVE (NEGATIVE); URINE NITRITE NEGATIVE (NEGATIVE); URINE PROTEIN 1+ (NEGATIVE); URINE RBC 4 /uL (0-23.9); URINE WBC 2 /uL (0-25.8)
[2022-06-11] MEDS: BUDESONIDE/FORMETEROL FUMARATE 160/4.5 mcg INHALER IH SCH ×3 (00:44→23:02)
[2022-06-11] MEDS: LORazepam 1 MG TABLET PO SCH ×4 (05:39→22:59)
[2022-06-11] MEDS ORDERED: BUDESONIDE/FORMETEROL FUMARATE 160/4.5 mcg INHALER IH SCH (10:00)
[2022-06-11] MEDS ORDERED: ALBUTEROL SO4 HFA INHALER IH SCH (10:00)
[2022-06-11] MEDS: NICOTINE 7 MG/24 HOURS TOPICAL PATCH TD SCH (10:09)
[2022-06-11] MEDS: MONTELUKAST NA 10 MG TABLET PO SCH (10:10)
[2022-06-11] MEDS: THIAMINE HCL 100 MG TABLET (FP) PO SCH (10:10)
[2022-06-11] MEDS: DEXAMETHASONE SOD PHOSPHATE 10 MG/1 ML VIAL IVPUSH SCH (10:10)
[2022-06-11] MEDS: FOLIC ACID 1 MG TABLET (FP) PO SCH ×2 (10:11→11:00)
[2022-06-11] MEDS: EMTRICITAB/RILPIVIRI/TENOF ALA (ODEFSEY) TABLET PO SCH (13:23)
[2022-06-11] MEDS: AZITHROMYCIN IVPB 500 MG/250 ML BAG IVPB SCH (13:24)
[2022-06-11] MEDS: ENOXAPARIN NA (PORCINE) 40 MG/0.4 ML DISP.SYRIN SQ SCH (13:24)
[2022-06-11 15:03] LABS: HEMATOCRIT 38.8 % (35.4-49); HEMOGLOBIN 12.6 GM/dL (11.7-16.9); MCH 30.2 pg (25.7-33.7); MCHC 32.6 g/dl (32.0-35.9); MEAN CELL VOLUME 92.6 fl (80-96); MEAN PLT VOLUME 9.4 fl (7.5-11.1); PLATELET COUNT 114 10^3/uL (134-434); RBC 4.19 M/mm3 (4.00-5.60); WHITE BLOOD COUNT 6.4 K/mm3 (4.0-10.0)
[2022-06-11 15:39] LABS: ALBUMIN 3.8 g/dl (3.4-5.0); ANISOCYTOSIS 0; BLOOD UREA NITROGEN 19.8 mg/dL (7-18); CALCIUM 8.9 mg/dL (8.5-10.1); HELMET CELLS 0; HOWELL-JOLLY BODIES 0; MACROCYTOSIS 0; OVALOCYTE 0; ROULEAU 0; SICKELED CELLS 0; TARGET CELLS 0; TEAR DROP CELLS 0; TOXIC GRANULATION 0
[2022-06-11 15:40] LABS: MAGNESIUM 1.8 mg/dL (1.8-2.4)
[2022-06-11 15:43] LABS: BILIRUBIN,TOTAL 1.2 mg/dL (0.2-1); PHOSPHOROUS 1.8 mg/dL (2.5-4.9); TOT PROT 7.4 g/dl (6.4-8.2)
[2022-06-11] MEDS ORDERED: REMDESIVIR 200 MG in SODIUM CHLORIDE 250 ML IVPB ONE (17:00)
[2022-06-12] MEDS ORDERED: LORazepam 0.5 MG TABLET PO PRN
[2022-06-12] MEDS: LORazepam 0.5 MG TABLET PO SCH ×4 (05:37→23:38)
[2022-06-12 07:48] LABS: BLOOD UREA NITROGEN 19.4 mg/dL (7-18); CALCIUM 8.9 mg/dL (8.5-10.1); MAGNESIUM 1.8 mg/dL (1.8-2.4)
[2022-06-12 07:49] LABS: ALBUMIN 3.8 g/dl (3.4-5.0)
[2022-06-12 07:50] LABS: BASO % 0.1 % (0-2.0); HEMATOCRIT 37.6 % (35.4-49); HEMOGLOBIN 12.3 GM/dL (11.7-16.9); LYMPH % 10.4 % (8-40); MCH 30.3 pg (25.7-33.7); MCHC 32.8 g/dl (32.0-35.9); MEAN CELL VOLUME 92.4 fl (80-96); MEAN PLT VOLUME 8.7 fl (7.5-11.1); MONO % 9.6 % (3.8-10.2); NEUT % 79.9 % (42.8-82.8); PLATELET COUNT 104 10^3/uL (134-434); RBC 4.07 M/mm3 (4.00-5.60); RDW 16.7 % (11.9-15.9); WHITE BLOOD COUNT 7.8 K/mm3 (4.0-10.0)
[2022-06-12 07:51] LABS: CREATININE 0.7 mg/dL (0.55-1.3); PHOSPHOROUS 2.5 mg/dL (2.5-4.9)
[2022-06-12 07:52] LABS: BILIRUBIN,TOTAL 0.9 mg/dL (0.2-1); TOT PROT 7.3 g/dl (6.4-8.2)
[2022-06-12 08:55] LABS: BILIRUBIN,DIRECT 0.3 mg/dL (0.0-0.2)
[2022-06-12] MEDS: DEXAMETHASONE SOD PHOSPHATE 10 MG/1 ML VIAL IVPUSH SCH (10:03)
[2022-06-12] MEDS: MONTELUKAST NA 10 MG TABLET PO SCH (10:03)
[2022-06-12] MEDS: THIAMINE HCL 100 MG TABLET (FP) PO SCH (10:03)
[2022-06-12] MEDS: ENOXAPARIN NA (PORCINE) 40 MG/0.4 ML DISP.SYRIN SQ SCH (10:03)
[2022-06-12] MEDS: NICOTINE 7 MG/24 HOURS TOPICAL PATCH TD SCH (10:04)
[2022-06-12] MEDS: FOLIC ACID 1 MG TABLET (FP) PO SCH (10:04)
[2022-06-12] MEDS: EMTRICITAB/RILPIVIRI/TENOF ALA (ODEFSEY) TABLET PO SCH (10:09)
[2022-06-12] MEDS: AZITHROMYCIN IVPB 500 MG/250 ML BAG IVPB SCH (10:09)
[2022-06-12] MEDS: BUDESONIDE/FORMETEROL FUMARATE 160/4.5 mcg INHALER IH SCH ×2 (10:09→22:34)
[2022-06-12] MEDS: PANTOPRAZOLE 40 MG TABLET PO SCH (10:09)
[2022-06-12] MEDS: REMDESIVIR 100 MG in SODIUM CHLORIDE 250 ML IVPB SCH (17:19)
[2022-06-13] MEDS ORDERED: LORazepam 0.5 MG TABLET PO ONE ×2 (05:00→13:10)
[2022-06-13 07:45] LABS: HEMATOCRIT 36.8 % (35.4-49); HEMOGLOBIN 12.1 GM/dL (11.7-16.9); MCH 30.5 pg (25.7-33.7); MEAN CELL VOLUME 92.4 fl (80-96); MEAN PLT VOLUME 9.1 fl (7.5-11.1); PLATELET COUNT 107 10^3/uL (134-434); RBC 3.98 M/mm3 (4.00-5.60); RDW 17.1 % (11.9-15.9); WHITE BLOOD COUNT 8.8 K/mm3 (4.0-10.0)
[2022-06-13 08:11] LABS: ALBUMIN 3.6 g/dl (3.4-5.0)
[2022-06-13 08:15] LABS: CALCIUM 8.8 mg/dL (8.5-10.1); MAGNESIUM 1.5 mg/dL (1.8-2.4)
[2022-06-13 08:17] LABS: CREATININE 0.7 mg/dL (0.55-1.3); PHOSPHOROUS 2.7 mg/dL (2.5-4.9)
[2022-06-13 08:18] LABS: BILIRUBIN,TOTAL 0.9 mg/dL (0.2-1); TOT PROT 6.8 g/dl (6.4-8.2)
[2022-06-13] MEDS: MONTELUKAST NA 10 MG TABLET PO SCH (10:22)
[2022-06-13] MEDS: FOLIC ACID 1 MG TABLET (FP) PO SCH (10:22)
[2022-06-13] MEDS: PANTOPRAZOLE 40 MG TABLET PO SCH (10:22)
[2022-06-13] MEDS: ENOXAPARIN NA (PORCINE) 40 MG/0.4 ML DISP.SYRIN SQ SCH (10:22)
[2022-06-13] MEDS: THIAMINE HCL 100 MG TABLET (FP) PO SCH (10:23)
[2022-06-13] MEDS: NICOTINE 7 MG/24 HOURS TOPICAL PATCH TD SCH (10:23)
[2022-06-13] MEDS: DEXAMETHASONE SOD PHOSPHATE 10 MG/1 ML VIAL IVPUSH SCH (10:24)
[2022-06-13] MEDS: BUDESONIDE/FORMETEROL FUMARATE 160/4.5 mcg INHALER IH SCH (10:27)
[2022-06-13] MEDS: AZITHROMYCIN IVPB 500 MG/250 ML BAG IVPB SCH (10:28)
[2022-06-13] MEDS: EMTRICITAB/RILPIVIRI/TENOF ALA (ODEFSEY) TABLET PO SCH (10:30)
[2022-06-13] MEDS ORDERED: MAGNESIUM SULF 50% (8.12 MEQ/2 ML-1 GM VIAL) IVPB ONE (10:48)
[2022-06-13] MEDS: LORATADINE 10 MG TABLET PO SCH (11:05)
[2022-06-13] MEDS: SODIUM CHLORIDE 1,000 ML IV SCH (11:05)
[2022-06-13] MEDS: methylPREDNISolone NA SUCC 40 MG/1 ML VIAL IVPUSH SCH ×2 (15:09→17:56)
[2022-06-13] MEDS: guaiFENesin/CODEINE 5 ML UNIT-DOSE CUPS PO PRN (15:10)
[2022-06-13] MEDS: REMDESIVIR 100 MG in SODIUM CHLORIDE 250 ML IVPB SCH (17:55)
[2022-06-13] MEDS ORDERED: IBUPROFEN 800 MG/8 ML IJ IVPB ONE (18:49)
[2022-06-14] MEDS: methylPREDNISolone NA SUCC 40 MG/1 ML VIAL IVPUSH SCH ×3 (01:07→18:20)
[2022-06-14] MEDS: guaiFENesin/CODEINE 5 ML UNIT-DOSE CUPS PO PRN (03:16)
[2022-06-14 07:32] LABS: HEMATOCRIT 38.3 % (35.4-49); HEMOGLOBIN 12.2 GM/dL (11.7-16.9); MCH 30.1 pg (25.7-33.7); MCHC 31.8 g/dl (32.0-35.9); MEAN CELL VOLUME 94.7 fl (80-96); MEAN PLT VOLUME 8.9 fl (7.5-11.1); PLATELET COUNT 123 10^3/uL (134-434); RBC 4.04 M/mm3 (4.00-5.60); RDW 17.1 % (11.9-15.9); WHITE BLOOD COUNT 7.4 K/mm3 (4.0-10.0)
[2022-06-14 08:04] LABS: ALBUMIN 3.5 g/dl (3.4-5.0); BLOOD UREA NITROGEN 22.6 mg/dL (7-18); CALCIUM 8.9 mg/dL (8.5-10.1); PHOSPHOROUS 3.3 mg/dL (2.5-4.9)
[2022-06-14 08:05] LABS: BILIRUBIN,TOTAL 0.6 mg/dL (0.2-1); MAGNESIUM 1.9 mg/dL (1.8-2.4); TOT PROT 6.8 g/dl (6.4-8.2)
[2022-06-14 08:07] LABS: CREATININE 0.7 mg/dL (0.55-1.3)
[2022-06-14] MEDS: THIAMINE HCL 100 MG TABLET (FP) PO SCH (09:27)
[2022-06-14] MEDS: LORATADINE 10 MG TABLET PO SCH (09:27)
[2022-06-14] MEDS: ENOXAPARIN NA (PORCINE) 40 MG/0.4 ML DISP.SYRIN SQ SCH (09:27)
[2022-06-14] MEDS: NICOTINE 7 MG/24 HOURS TOPICAL PATCH TD SCH (09:27)
[2022-06-14] MEDS: EMTRICITAB/RILPIVIRI/TENOF ALA (ODEFSEY) TABLET PO SCH (09:28)
[2022-06-14] MEDS: FOLIC ACID 1 MG TABLET (FP) PO SCH (09:28)
[2022-06-14] MEDS: MONTELUKAST NA 10 MG TABLET PO SCH (09:28)
[2022-06-14] MEDS: PANTOPRAZOLE 40 MG TABLET PO SCH (09:28)
[2022-06-14] MEDS: AZITHROMYCIN IVPB 500 MG/250 ML BAG IVPB SCH (09:29)
[2022-06-14] MEDS: SODIUM CHLORIDE 1,000 ML IV SCH (16:28)
[2022-06-15 00:50] VITALS: RESP 18
[2022-06-15] MEDS: methylPREDNISolone NA SUCC 40 MG/1 ML VIAL IVPUSH SCH ×4 (02:19→17:29)
[2022-06-15] MEDS: MONTELUKAST NA 10 MG TABLET PO SCH (09:05)
[2022-06-15] MEDS: PANTOPRAZOLE 40 MG TABLET PO SCH (09:05)
[2022-06-15] MEDS: THIAMINE HCL 100 MG TABLET (FP) PO SCH (09:05)
[2022-06-15] MEDS: NICOTINE 7 MG/24 HOURS TOPICAL PATCH TD SCH (09:06)
[2022-06-15] MEDS: ENOXAPARIN NA (PORCINE) 40 MG/0.4 ML DISP.SYRIN SQ SCH (09:06)
[2022-06-15] MEDS: LORATADINE 10 MG TABLET PO SCH (09:06)
[2022-06-15] MEDS: FOLIC ACID 1 MG TABLET (FP) PO SCH (09:06)
[2022-06-15] MEDS: EMTRICITAB/RILPIVIRI/TENOF ALA (ODEFSEY) TABLET PO SCH (09:06)
[2022-06-15] MEDS: SODIUM CHLORIDE 1,000 ML IV SCH (11:37)
[2022-06-15 14:48] VITALS: BP 122/88; PULSE 70; TEMP 98.2
== END 2022-06-15 19:10 | disposition home or self-care (01) | DRG 975 ==
LOC: JER 22:22 → JERBED 06-10 00:36 → J4W 06-10 16:35
PROVIDERS: ADMIT Internal Medicine; ATTEND Internal Medicine
PROC: XW033E5 Introduction of Remdesivir Anti-infective into Peripheral Vein, Percutaneous Approach, New Technology Group 5 (ICD-10-PCS; principal; 2022-06-11)
DX: U07.1 COVID-19 (principal); B20 Human immunodeficiency virus [HIV] disease; F10.239 Alcohol dependence with withdrawal, unspecified; J44.1 Chronic obstructive pulmonary disease with (acute) exacerbation; J45.901 Unspecified asthma with (acute) exacerbation; R74.01 Elevation of levels of liver transaminase levels; E83.42 Hypomagnesemia
CPT/HCPCS: 36415; 71046-TC-FY; 71250-TC; 76705-TC; 80053; 80076; 81003; 82728; 83615; 83735; 84100; 84484; 85025; 85027; 85379; 85651; 86140; 86705; 86707; 86708; 87350; 87517; 87522; 93005; 93010; 94761; 99285-25; C9399; C9803-CS; J1100; U0003; U0005

== ENCOUNTER 2022-07-11 17:23 | Inpatient (IN) | payer OTHER ==
[2022-07-11 23:33] VITALS: BMI 27.8
[2022-07-12] MEDS ORDERED: ALBUTEROL SO4 2.5/IPRATROPIUM 0.5 INH SOL 3 ML VIAL.NEB. NEB PRN (00:29)
[2022-07-12] MEDS ORDERED: ONDANSETRON *ODT* 4 MG TABLET SL PRN (00:30)
[2022-07-12] MEDS ORDERED: LOPERAMIDE HCL 2 MG CAPSULE PO PRN (00:30)
[2022-07-12] MEDS ORDERED: MAG HYDROX/AL HYDROX/SIMETH 30 ML UNIT-DOSE CUP PO PRN (00:30)
[2022-07-12] MEDS ORDERED: MAGNESIUM HYDROX 2400MG/30ML ORAL SUSPENSION 30 ML CUP PO PRN (00:30)
[2022-07-12] MEDS ORDERED: IBUPROFEN 600 MG TABLET (FP) PO PRN (00:30)
[2022-07-12] MEDS ORDERED: DICYCLOMINE HCL 10 MG CAPSULE PO PRN (00:30)
[2022-07-12] MEDS ORDERED: IBUPROFEN 400 MG TABLET (FP) PO PRN (00:30)
[2022-07-12] MEDS ORDERED: P-EPHED 60MG/TRIPROLIDI 2.5MG TABLET PO PRN (00:30)
[2022-07-12] MEDS ORDERED: NICOTINE POLACRILEX 2 MG GUM BUC PRN (00:30)
[2022-07-12] MEDS ORDERED: MAGNESIUM CITRATE 300 ML BOTTLE PO PRN (00:30)
[2022-07-12] MEDS ORDERED: chlordiazePOXIDE HCL 25 MG CAPSULE PO PRN (00:30)
[2022-07-12] MEDS ORDERED: guaiFENesin 200 MG/10 ML 10 ML UNIT-DOSE CUPS PO PRN (00:30)
[2022-07-12] MEDS ORDERED: NALOXONE HCL (KLOXXADO) 8 MG SPRAY NS PRN (00:30)
[2022-07-12] MEDS ORDERED: BENZOCAINE/MENTHOL (CHLORASEPTIC ) LOZENGE MM PRN (00:30)
[2022-07-12] MEDS ORDERED: BISMUTH SUBSALICYLATE 524 MG/30 ML PO PRN (00:30)
[2022-07-12] MEDS ORDERED: ACETAMINOPHEN 325 MG TABLET (FP) PO PRN (00:30)
[2022-07-12] MEDS: hydrOXYzine PAMOATE 25 MG CAPSULE (FP) PO PRN (03:31)
[2022-07-12] MEDS: METHOCARBAMOL 500 MG TABLET PO PRN (03:31)
[2022-07-12] MEDS: chlordiazePOXIDE HCL 25 MG CAPSULE PO SCH ×4 (06:18→22:09)
[2022-07-12] MEDS: ALBUTEROL SO4 HFA INHALER IH SCH (10:00)
[2022-07-12] MEDS ORDERED: PANTOPRAZOLE 40 MG TABLET PO SCH (10:00)
[2022-07-12] MEDS: PRENATAL VITAMINS W/ FOLIC ACID TABLET (FP) PO SCH (10:28)
[2022-07-12] MEDS: BUDESONIDE/FORMETEROL FUMARATE 160/4.5 mcg INHALER IH SCH ×2 (10:29→22:10)
[2022-07-12] MEDS: MONTELUKAST NA 10 MG TABLET PO SCH (10:29)
[2022-07-12] MEDS: NICOTINE 14 MG/24 HOURS TOPICAL PATCH TD SCH (10:32)
[2022-07-12 11:01] LABS: HEMATOCRIT 31.1 % (35.4-49); HEMOGLOBIN 10.1 GM/dL (11.7-16.9); MCH 30.5 pg (25.7-33.7); MCHC 32.6 g/dl (32.0-35.9); MEAN CELL VOLUME 93.6 fl (80-96); MEAN PLT VOLUME 7.3 fl (7.5-11.1); PLATELET COUNT 152 10^3/uL (134-434); RBC 3.32 M/mm3 (4.00-5.60); RDW 18.2 % (11.9-15.9); WHITE BLOOD COUNT 5.7 K/mm3 (4.0-10.0)
[2022-07-12 11:24] LABS: CALCIUM 8.4 mg/dL (8.5-10.1)
[2022-07-12 11:28] LABS: ALBUMIN 3.1 g/dl (3.4-5.0); CREATININE 0.6 mg/dL (0.55-1.3)
[2022-07-12 11:29] LABS: BILIRUBIN,TOTAL 0.6 mg/dL (0.2-1); TOT PROT 6.1 g/dl (6.4-8.2)
[2022-07-12] MEDS: EMTRICITAB/RILPIVIRI/TENOF ALA (ODEFSEY) TABLET PO SCH (11:58)
[2022-07-12] MEDS ORDERED: FLU VACC QS2022-23(6MOS UP)/PF 60 MCG/0.5 ML SYRINGE IM ONE (12:00)
[2022-07-12] MEDS: THIAMINE HCL 100 MG TABLET (FP) PO SCH (22:08)
[2022-07-12] MEDS: MELATONIN 5 MG TABLETS PO PRN (22:08)
[2022-07-13] MEDS: chlordiazePOXIDE HCL 25 MG CAPSULE PO SCH ×4 (06:41→22:12)
[2022-07-13] MEDS: ALBUTEROL SO4 HFA INHALER IH SCH (08:42)
[2022-07-13] MEDS: NICOTINE 14 MG/24 HOURS TOPICAL PATCH TD SCH (10:18)
[2022-07-13] MEDS: PRENATAL VITAMINS W/ FOLIC ACID TABLET (FP) PO SCH (10:18)
[2022-07-13] MEDS: PANTOPRAZOLE 40 MG TABLET PO SCH (10:19)
[2022-07-13] MEDS: EMTRICITAB/RILPIVIRI/TENOF ALA (ODEFSEY) TABLET PO SCH (10:19)
[2022-07-13] MEDS: MONTELUKAST NA 10 MG TABLET PO SCH (10:19)
[2022-07-13] MEDS: BUDESONIDE/FORMETEROL FUMARATE 160/4.5 mcg INHALER IH SCH ×2 (10:19→22:12)
[2022-07-13] MEDS: METHOCARBAMOL 500 MG TABLET PO PRN (11:47)
[2022-07-13] MEDS: ACETAMINOPHEN 325 MG TABLET (FP) PO PRN ×2 (11:47→22:11)
[2022-07-13 18:51] LABS: PH,URINE 8.5 (5.0-8.0); URINE APPEARANCE CLEAR; URINE BILIRUBIN NEGATIVE (NEGATIVE); URINE COLOR YELLOW; URINE GLUCOSE (UA) NEGATIVE (NEGATIVE); URINE KETONE NEGATIVE (NEGATIVE); URINE LEUK ESTERASE NEGATIVE (NEGATIVE); URINE NITRITE NEGATIVE (NEGATIVE); URINE PROTEIN NEGATIVE (NEGATIVE)
[2022-07-13] MEDS: THIAMINE HCL 100 MG TABLET (FP) PO SCH (22:11)
[2022-07-13] MEDS: MELATONIN 5 MG TABLETS PO PRN (22:11)
[2022-07-14] MEDS ORDERED: chlordiazePOXIDE HCL 10 MG CAPSULE PO PRN
[2022-07-14] MEDS: chlordiazePOXIDE HCL 10 MG CAPSULE PO SCH ×4 (05:27→22:04)
[2022-07-14] MEDS: NICOTINE 14 MG/24 HOURS TOPICAL PATCH TD SCH (10:26)
[2022-07-14] MEDS: PRENATAL VITAMINS W/ FOLIC ACID TABLET (FP) PO SCH (10:27)
[2022-07-14] MEDS: EMTRICITAB/RILPIVIRI/TENOF ALA (ODEFSEY) TABLET PO SCH (10:27)
[2022-07-14] MEDS: MONTELUKAST NA 10 MG TABLET PO SCH (10:27)
[2022-07-14] MEDS: PANTOPRAZOLE 40 MG TABLET PO SCH (10:27)
[2022-07-14] MEDS: BUDESONIDE/FORMETEROL FUMARATE 160/4.5 mcg INHALER IH SCH ×2 (10:28→22:04)
[2022-07-14] MEDS: ALBUTEROL SO4 HFA INHALER IH SCH ×2 (10:30→15:15)
[2022-07-14] MEDS: THIAMINE HCL 100 MG TABLET (FP) PO SCH (22:04)
[2022-07-14] MEDS: MELATONIN 5 MG TABLETS PO PRN (22:05)
[2022-07-15] MEDS: chlordiazePOXIDE HCL 10 MG CAPSULE PO SCH ×2 (05:49→17:46)
[2022-07-15] MEDS: PRENATAL VITAMINS W/ FOLIC ACID TABLET (FP) PO SCH (10:14)
[2022-07-15] MEDS: predniSONE 20 MG TABLET (UD) PO SCH (10:14)
[2022-07-15] MEDS: NICOTINE 14 MG/24 HOURS TOPICAL PATCH TD SCH (10:16)
[2022-07-15] MEDS: MONTELUKAST NA 10 MG TABLET PO SCH (10:16)
[2022-07-15] MEDS: EMTRICITAB/RILPIVIRI/TENOF ALA (ODEFSEY) TABLET PO SCH (10:16)
[2022-07-15] MEDS: BUDESONIDE/FORMETEROL FUMARATE 160/4.5 mcg INHALER IH SCH ×2 (10:16→22:06)
[2022-07-15] MEDS: PANTOPRAZOLE 40 MG TABLET PO SCH (10:16)
[2022-07-15] MEDS: ALBUTEROL SO4 HFA INHALER IH SCH ×3 (10:17→17:47)
[2022-07-15] MEDS: METHOCARBAMOL 500 MG TABLET PO PRN ×2 (10:18→22:06)
[2022-07-15] MEDS: ACETAMINOPHEN 325 MG TABLET (FP) PO PRN ×2 (10:18→22:06)
[2022-07-15 19:02] VITALS: RESP 18
[2022-07-15] MEDS: MELATONIN 5 MG TABLETS PO PRN (22:06)
[2022-07-15] MEDS: THIAMINE HCL 100 MG TABLET (FP) PO SCH (22:06)
[2022-07-15] MEDS: hydrOXYzine PAMOATE 25 MG CAPSULE (FP) PO PRN (22:06)
[2022-07-16] MEDS ORDERED: chlordiazePOXIDE HCL 10 MG CAPSULE PO ONE (05:00)
[2022-07-16] MEDS: PRENATAL VITAMINS W/ FOLIC ACID TABLET (FP) PO SCH (09:35)
[2022-07-16] MEDS: PANTOPRAZOLE 40 MG TABLET PO SCH (09:36)
[2022-07-16] MEDS: predniSONE 20 MG TABLET (UD) PO SCH (09:36)
[2022-07-16] MEDS: BUDESONIDE/FORMETEROL FUMARATE 160/4.5 mcg INHALER IH SCH (09:36)
[2022-07-16] MEDS: MONTELUKAST NA 10 MG TABLET PO SCH (09:36)
[2022-07-16] MEDS: ALBUTEROL SO4 HFA INHALER IH SCH (09:37)
[2022-07-16] MEDS: EMTRICITAB/RILPIVIRI/TENOF ALA (ODEFSEY) TABLET PO SCH (09:37)
[2022-07-16] MEDS: NICOTINE 14 MG/24 HOURS TOPICAL PATCH TD SCH (09:40)
[2022-07-16 10:19] VITALS: BP 137/84; PULSE 98; TEMP 97.7
== END 2022-07-16 10:14 | disposition home or self-care (01) | DRG 897 ==
LOC: YASAS 17:23 → Y3N 07-12 01:58
PROVIDERS: ADMIT Allergy & Immunology; ATTEND Allergy & Immunology
PROC: HZ2ZZZZ Detoxification Services for Substance Abuse Treatment (ICD-10-PCS; principal; 2022-07-12)
DX: F10.230 Alcohol dependence with withdrawal, uncomplicated (principal); J45.41 Moderate persistent asthma with (acute) exacerbation; F12.20 Cannabis dependence, uncomplicated; F17.210 Nicotine dependence, cigarettes, uncomplicated; F20.9 Schizophrenia, unspecified; F31.9 Bipolar disorder, unspecified; F19.24 Other psychoactive substance dependence with psychoactive substance-induced mood disorder; F41.9 Anxiety disorder, unspecified; Z21 Asymptomatic human immunodeficiency virus [HIV] infection status; Z91.81 History of falling
CPT/HCPCS: 36415; 80053; 81003; 85027; 86780; 87811; 94640; C9803-CS; G0008; Q2036; U0003; U0005

== ENCOUNTER 2022-07-14 00:59 | Emergency (ER) | payer OTHER ==
[2022-07-14 01:02] VITALS: BP 113/76; PULSE 85; RESP 17; BMI 20.6
[2022-07-14 01:09] VITALS: TEMP 98.9
[2022-07-14] MEDS ORDERED: methylPREDNISolone NA SUCC 125 MG/2 ML VIAL IVPUSH ONE (01:16)
[2022-07-14] MEDS ORDERED: predniSONE 20 MG TABLET (UD) PO ONE (01:20)
[2022-07-14] MEDS ORDERED: predniSONE 20 MG TABLET (UD) ONE (01:35)
[2022-07-14] MEDS ORDERED: predniSONE 10 MG TABLET (UD) ONE (01:35)
[2022-07-14] MEDS: ALBUTEROL SO4 2.5/IPRATROPIUM 0.5 INH SOL 3 ML VIAL.NEB. NEB SCH ×3 (01:48→02:30)
== END 2022-07-14 05:01 ==
LOC: JER 00:59
PROC: 3E0F7GC Introduction of Other Therapeutic Substance into Respiratory Tract, Via Natural or Artificial Opening (ICD-10-PCS; principal; 2022-07-14)
DX: J45.901 Unspecified asthma with (acute) exacerbation (principal)
CPT/HCPCS: 0241U-QW; 71045-TC-FY; 94640; 99284-25

== ENCOUNTER 2022-09-11 12:00 | Inpatient (IN) | payer OTHER ==
[2022-09-11] MEDS ORDERED: TRIMETHOBENZAMIDE HCL 200MG/2ML INJ IM ONE (12:58)
[2022-09-11] MEDS ORDERED: guaiFENesin 200 MG/10 ML 10 ML UNIT-DOSE CUPS PO PRN (12:59)
[2022-09-11] MEDS ORDERED: DICYCLOMINE HCL 10 MG CAPSULE PO PRN (12:59)
[2022-09-11] MEDS ORDERED: IBUPROFEN 600 MG TABLET (FP) PO PRN (12:59)
[2022-09-11] MEDS ORDERED: P-EPHED 60MG/TRIPROLIDI 2.5MG TABLET PO PRN (12:59)
[2022-09-11] MEDS ORDERED: POLYETHYLENE GLYCOL (HEALTHYLAX) 3350 17 GM PACKET PO PRN (12:59)
[2022-09-11] MEDS ORDERED: LORazepam 2 MG/ML SDV VIAL IM ONE (12:59)
[2022-09-11] MEDS ORDERED: MAGNESIUM HYDROX 2400MG/30ML ORAL SUSPENSION 30 ML CUP PO PRN (12:59)
[2022-09-11] MEDS ORDERED: LOPERAMIDE HCL 2 MG CAPSULE PO PRN (12:59)
[2022-09-11] MEDS ORDERED: ONDANSETRON *ODT* 4 MG TABLET SL PRN (12:59)
[2022-09-11] MEDS ORDERED: IBUPROFEN 400 MG TABLET (FP) PO PRN (12:59)
[2022-09-11] MEDS ORDERED: BISMUTH SUBSALICYLATE 262 MG/15 ML BTL PO PRN (12:59)
[2022-09-11] MEDS ORDERED: ACETAMINOPHEN 325 MG TABLET (FP) PO PRN ×2 (12:59)
[2022-09-11] MEDS ORDERED: BENZOCAINE/MENTHOL (CHLORASEPTIC ) LOZENGE MM PRN (12:59)
[2022-09-11] MEDS ORDERED: MAG HYDROX/AL HYDROX/SIMETH 30 ML UNIT-DOSE CUP PO PRN (12:59)
[2022-09-11] MEDS ORDERED: ALBUTEROL SO4 2.5/IPRATROPIUM 0.5 INH SOL 3 ML VIAL.NEB. NEB PRN (13:04)
[2022-09-11] MEDS ORDERED: chlordiazePOXIDE HCL 25 MG CAPSULE PO PRN (13:05)
[2022-09-11] MEDS ORDERED: METOPROLOL TARTRATE 25 MG TABLET (FP) PO ONE (13:52)
[2022-09-11] MEDS: BUDESONIDE/FORMETEROL FUMARATE 160/4.5 mcg INHALER IH SCH ×2 (14:11→22:18)
[2022-09-11 14:14] VITALS: BMI 23.7
[2022-09-11] MEDS: EMTRICITAB/RILPIVIRI/TENOF ALA (ODEFSEY) TABLET PO SCH (16:04)
[2022-09-11] MEDS: chlordiazePOXIDE HCL 25 MG CAPSULE PO SCH ×2 (17:40→22:18)
[2022-09-11] MEDS: MONTELUKAST NA 10 MG TABLET PO SCH (22:17)
[2022-09-11] MEDS: MELATONIN 5 MG TABLETS PO PRN (22:17)
[2022-09-11] MEDS: THIAMINE HCL 100 MG TABLET (FP) PO SCH (22:18)
[2022-09-12] MEDS: chlordiazePOXIDE HCL 25 MG CAPSULE PO SCH ×4 (05:38→22:36)
[2022-09-12] MEDS: EMTRICITAB/RILPIVIRI/TENOF ALA (ODEFSEY) TABLET PO SCH (08:35)
[2022-09-12] MEDS: FOLIC ACID 1 MG TABLET (FP) PO SCH (10:11)
[2022-09-12] MEDS: PRENATAL VITAMINS W/ FOLIC ACID TABLET (FP) PO SCH (10:11)
[2022-09-12] MEDS: BUDESONIDE/FORMETEROL FUMARATE 160/4.5 mcg INHALER IH SCH ×2 (10:12→22:41)
[2022-09-12] MEDS ORDERED: cloNIDine HCL 0.1 MG TABLET PO PRN (10:25)
[2022-09-12 10:52] LABS: HEMATOCRIT 39.7 % (35.4-49); HEMOGLOBIN 12.7 GM/dL (11.7-16.9); MCH 27.9 pg (25.7-33.7); PLATELET COUNT 123 10^3/uL (134-434); RBC 4.56 M/mm3 (4.00-5.60); RDW 20.3 % (11.9-15.9); WHITE BLOOD COUNT 5.4 K/mm3 (4.0-10.0)
[2022-09-12 10:57] LABS: ALBUMIN 3.6 g/dl (3.4-5.0); CALCIUM 9.2 mg/dL (8.5-10.1)
[2022-09-12 11:01] LABS: CREATININE 0.9 mg/dL (0.55-1.3)
[2022-09-12 11:02] LABS: BILIRUBIN,TOTAL 0.9 mg/dL (0.2-1); TOT PROT 6.9 g/dl (6.4-8.2)
[2022-09-12] MEDS: hydrOXYzine PAMOATE 25 MG CAPSULE (FP) PO PRN (17:59)
[2022-09-12] MEDS: MONTELUKAST NA 10 MG TABLET PO SCH (22:35)
[2022-09-12] MEDS: THIAMINE HCL 100 MG TABLET (FP) PO SCH (22:35)
[2022-09-12] MEDS: MELATONIN 5 MG TABLETS PO PRN (22:42)
[2022-09-13] MEDS: chlordiazePOXIDE HCL 25 MG CAPSULE PO SCH ×4 (05:33→22:33)
[2022-09-13] MEDS: EMTRICITAB/RILPIVIRI/TENOF ALA (ODEFSEY) TABLET PO SCH (07:45)
[2022-09-13] MEDS: PRENATAL VITAMINS W/ FOLIC ACID TABLET (FP) PO SCH (10:38)
[2022-09-13] MEDS: BUDESONIDE/FORMETEROL FUMARATE 160/4.5 mcg INHALER IH SCH ×2 (10:38→22:33)
[2022-09-13] MEDS: FOLIC ACID 1 MG TABLET (FP) PO SCH (10:38)
[2022-09-13] MEDS ORDERED: POTASSIUM CHLORIDE ORAL LIQUID 20 MEQ/15 ML PO ONE (12:33)
[2022-09-13] MEDS: LACTULOSE 20 GM/30 ML UDC (FOR ORAL USE ONLY) PO SCH ×2 (13:19→22:31)
[2022-09-13] MEDS: MONTELUKAST NA 10 MG TABLET PO SCH (22:32)
[2022-09-13] MEDS: MELATONIN 5 MG TABLETS PO PRN (22:32)
[2022-09-13] MEDS: THIAMINE HCL 100 MG TABLET (FP) PO SCH (22:32)
[2022-09-14] MEDS ORDERED: chlordiazePOXIDE HCL 10 MG CAPSULE PO PRN
[2022-09-14] MEDS: hydrOXYzine PAMOATE 25 MG CAPSULE (FP) PO PRN ×2 (05:37→22:16)
[2022-09-14] MEDS: chlordiazePOXIDE HCL 10 MG CAPSULE PO SCH ×4 (05:37→22:16)
[2022-09-14] MEDS: LACTULOSE 20 GM/30 ML UDC (FOR ORAL USE ONLY) PO SCH ×3 (05:37→22:14)
[2022-09-14] MEDS ORDERED: ALBUTEROL SO4 0.083% IH SOL 2.5 MG/3 ML VIAL.NEB. NEB ONE (05:40)
[2022-09-14] MEDS: ALBUTEROL SO4 HFA INHALER IH PRN (05:42)
[2022-09-14] MEDS: EMTRICITAB/RILPIVIRI/TENOF ALA (ODEFSEY) TABLET PO SCH (07:15)
[2022-09-14] MEDS: FOLIC ACID 1 MG TABLET (FP) PO SCH (10:10)
[2022-09-14] MEDS: BUDESONIDE/FORMETEROL FUMARATE 160/4.5 mcg INHALER IH SCH ×2 (10:10→22:15)
[2022-09-14] MEDS: PRENATAL VITAMINS W/ FOLIC ACID TABLET (FP) PO SCH (10:10)
[2022-09-14] MEDS: MONTELUKAST NA 10 MG TABLET PO SCH (22:16)
[2022-09-14] MEDS: THIAMINE HCL 100 MG TABLET (FP) PO SCH (22:16)
[2022-09-15] MEDS: LACTULOSE 20 GM/30 ML UDC (FOR ORAL USE ONLY) PO SCH ×3 (05:40→22:42)
[2022-09-15] MEDS: chlordiazePOXIDE HCL 10 MG CAPSULE PO SCH ×2 (05:40→17:58)
[2022-09-15] MEDS: EMTRICITAB/RILPIVIRI/TENOF ALA (ODEFSEY) TABLET PO SCH (09:00)
[2022-09-15] MEDS: BUDESONIDE/FORMETEROL FUMARATE 160/4.5 mcg INHALER IH SCH ×2 (10:12→22:43)
[2022-09-15] MEDS: PRENATAL VITAMINS W/ FOLIC ACID TABLET (FP) PO SCH (10:14)
[2022-09-15] MEDS: FOLIC ACID 1 MG TABLET (FP) PO SCH (10:14)
[2022-09-15] MEDS: ALBUTEROL SO4 HFA INHALER IH PRN (13:26)
[2022-09-15] MEDS: MONTELUKAST NA 10 MG TABLET PO SCH (22:44)
[2022-09-15] MEDS: THIAMINE HCL 100 MG TABLET (FP) PO SCH (22:44)
[2022-09-15] MEDS: hydrOXYzine PAMOATE 25 MG CAPSULE (FP) PO PRN (22:45)
[2022-09-15] MEDS: MELATONIN 5 MG TABLETS PO PRN (22:46)
[2022-09-16] MEDS ORDERED: chlordiazePOXIDE HCL 10 MG CAPSULE PO ONE (05:00)
[2022-09-16] MEDS: LACTULOSE 20 GM/30 ML UDC (FOR ORAL USE ONLY) PO SCH (05:48)
[2022-09-16] MEDS: EMTRICITAB/RILPIVIRI/TENOF ALA (ODEFSEY) TABLET PO SCH (07:40)
[2022-09-16 09:08] VITALS: BP 106/75; PULSE 97; RESP 16; TEMP 96.9
[2022-09-16] MEDS: BUDESONIDE/FORMETEROL FUMARATE 160/4.5 mcg INHALER IH SCH (09:32)
[2022-09-16] MEDS: FOLIC ACID 1 MG TABLET (FP) PO SCH (09:32)
[2022-09-16] MEDS: PRENATAL VITAMINS W/ FOLIC ACID TABLET (FP) PO SCH (09:32)
[2022-09-16] MEDS: ALBUTEROL SO4 HFA INHALER IH PRN (09:33)
== END 2022-09-16 09:46 | disposition home or self-care (01) | DRG 897 ==
LOC: YASAS 12:00 → Y3N 13:46
PROVIDERS: ADMIT Allergy & Immunology; ATTEND Family Medicine Addiction Medicine
PROC: HZ2ZZZZ Detoxification Services for Substance Abuse Treatment (ICD-10-PCS; principal; 2022-09-11)
DX: F10.230 Alcohol dependence with withdrawal, uncomplicated (principal); E72.20 Disorder of urea cycle metabolism, unspecified; F12.20 Cannabis dependence, uncomplicated; F17.210 Nicotine dependence, cigarettes, uncomplicated; F20.9 Schizophrenia, unspecified; F31.9 Bipolar disorder, unspecified; F41.9 Anxiety disorder, unspecified; Z21 Asymptomatic human immunodeficiency virus [HIV] infection status; D69.6 Thrombocytopenia, unspecified; E87.6 Hypokalemia; J44.9 Chronic obstructive pulmonary disease, unspecified; R74.01 Elevation of levels of liver transaminase levels
CPT/HCPCS: 36415; 80053; 82140; 85027; 86780; 94640; C9803-CS; U0003; U0005

== ENCOUNTER 2022-12-12 12:42 | Inpatient (IN) | payer OTHER ==
[2022-12-12 16:27] VITALS: BP 106/76; PULSE 95; RESP 18; TEMP 97.3; BMI 21.8
[2022-12-12] MEDS ORDERED: ALBUTEROL SO4 2.5/IPRATROPIUM 0.5 INH SOL 3 ML VIAL.NEB. NEB ONE (19:23)
[2022-12-12] MEDS ORDERED: ALBUTEROL SO4 HFA INHALER IH PRN (19:30)
[2022-12-12] MEDS ORDERED: SULFAMETHOXAZOLE/TRIMETHOPRIM 800MG/160MG D.S. TABLET PO SCH (19:30)
[2022-12-12] MEDS ORDERED: BUDESONIDE/FORMETEROL FUMARATE 160/4.5 mcg INHALER IH SCH (22:00)
== END 2022-12-13 09:00 | disposition short-term general hospital (02) | DRG 896 ==
LOC: YASAS 12:42 → Y3N 20:18
PROVIDERS: ADMIT Allergy & Immunology; ATTEND Surgery
PROC: HZ2ZZZZ Detoxification Services for Substance Abuse Treatment (ICD-10-PCS; principal; 2022-12-12)
DX: F10.230 Alcohol dependence with withdrawal, uncomplicated (principal); J18.9 Pneumonia, unspecified organism; J45.901 Unspecified asthma with (acute) exacerbation; F20.9 Schizophrenia, unspecified; F31.9 Bipolar disorder, unspecified; F41.9 Anxiety disorder, unspecified; Z21 Asymptomatic human immunodeficiency virus [HIV] infection status; R09.02 Hypoxemia
CPT/HCPCS: 94640

== ENCOUNTER 2022-12-12 22:01 | Inpatient (IN) | payer OTHER ==
[2022-12-12] MEDS ORDERED: DEXAMETHASONE SOD PHOSPHATE 10 MG/1 ML VIAL IVPUSH ONE (22:40)
[2022-12-12] MEDS ORDERED: diazePAM 5 MG TABLET PO ONE (23:06)
[2022-12-12] MEDS ORDERED: ALBUTEROL SO4 2.5/IPRATROPIUM 0.5 INH SOL 3 ML VIAL.NEB. NEB ONE (23:19)
[2022-12-12] MEDS ORDERED: DEXAMETHASONE SOD PHOSPHATE 10 MG/1 ML VIAL ONE (23:20)
[2022-12-12] MEDS ORDERED: diazePAM 5 MG TABLET ONE (23:20)
[2022-12-12] MEDS ORDERED: SODIUM CHLORIDE 1,000 ML IV STA (23:24)
[2022-12-12] MEDS ORDERED: FOLIC ACID 1 MG TABLET (FP) PO ONE (23:24)
[2022-12-12] MEDS ORDERED: THIAMINE HCL 200 MG/2 ML VIAL IVPB ONE (23:24)
[2022-12-12] MEDS ORDERED: AZITHROMYCIN IVPB 500 MG in DEXTROSE 5%-WATER - 250 ML IVPB ONE (23:24)
[2022-12-12] MEDS ORDERED: CEFTRIAXONE 1,000 MG in DEXTROSE 5%-WATER - 50 ML IVPB ONE (23:24)
[2022-12-12] MEDS: ALBUTEROL SO4 2.5/IPRATROPIUM 0.5 INH SOL 3 ML VIAL.NEB. NEB SCH ×2 (23:38→23:51)
[2022-12-12 23:47] LABS: VENOUS BASE EXCESS 5.2 mmol/L (-2-2); VENOUS O2 SATURATION 61.9 % (70-80); VENOUS PCO2 53.3 mmHg (38-52); VENOUS PH 7.387 (7.310-7.410)
[2022-12-12] MEDS ORDERED: FOLIC ACID 1 MG TABLET (FP) ONE (23:47)
[2022-12-12] MEDS ORDERED: THIAMINE HCL 200 MG/2 ML VIAL ONE (23:47)
[2022-12-12] MEDS ORDERED: cefTRIAXone SODIUM 1 GM VIAL ONE (23:52)
[2022-12-12] MEDS ORDERED: AZITHROMYCIN IVPB 500 MG/250 ML BAG IVPB ONE (23:53)
[2022-12-12 23:56] LABS: EOS % 1.5 % (0-4.5); HEMATOCRIT 32.6 % (35.4-49); HEMOGLOBIN 10.2 GM/dL (11.7-16.9); LYMPH % 21.5 % (8-40); MCH 25.9 pg (25.7-33.7); MCHC 31.2 g/dl (32.0-35.9); MEAN CELL VOLUME 82.8 fl (80-96); MEAN PLT VOLUME 6.9 fl (7.5-11.1); MONO % 16.6 % (3.8-10.2); NEUT % 59.4 % (42.8-82.8); PLATELET COUNT 220 10^3/uL (134-434); RBC 3.94 M/mm3 (4.00-5.60); RDW 21.1 % (11.9-15.9); WHITE BLOOD COUNT 4.7 K/mm3 (4.0-10.0)
[2022-12-13] MEDS: ALBUTEROL SO4 2.5/IPRATROPIUM 0.5 INH SOL 3 ML VIAL.NEB. NEB SCH ×5 (00:01→19:51)
[2022-12-13 00:18] LABS: CALCIUM 8.7 mg/dL (8.5-10.1)
[2022-12-13 00:19] LABS: ALBUMIN 3.2 g/dl (3.4-5.0); BLOOD UREA NITROGEN 19.9 mg/dL (7-18)
[2022-12-13 00:22] LABS: CREATININE 0.8 mg/dL (0.55-1.3)
[2022-12-13 00:23] LABS: BILIRUBIN,TOTAL 0.1 mg/dL (0.2-1)
[2022-12-13 00:24] LABS: TOT PROT 6.5 g/dl (6.4-8.2)
[2022-12-13] MEDS ORDERED: ALBUTEROL SO4 0.083% IH SOL 2.5 MG/3 ML VIAL.NEB. NEB ONE ×2 (00:51→00:53)
[2022-12-13 01:06] LABS: INR 1.03 (0.83-1.09)
[2022-12-13 01:09] LABS: ACTIVATED PTT 26.5 SECONDS (25.2-36.5)
[2022-12-13 04:26] LABS: URINE APPEARANCE CLEAR; URINE BILIRUBIN NEGATIVE (NEGATIVE); URINE COLOR YELLOW; URINE GLUCOSE (UA) NEGATIVE (NEGATIVE); URINE KETONE NEGATIVE (NEGATIVE); URINE LEUK ESTERASE NEGATIVE (NEGATIVE); URINE NITRITE NEGATIVE (NEGATIVE); URINE PROTEIN TRACE (NEGATIVE); URINE UROBILINOGEN 0.2 mg/dL (0.2-1.0)
[2022-12-13] MEDS ORDERED: LORazepam 1 MG TABLET PO PRN (06:01)
[2022-12-13] MEDS ORDERED: ALBUTEROL SO4 HFA INHALER IH SCH (06:15)
[2022-12-13] MEDS ORDERED: ALBUTEROL SO4 2.5/IPRATROPIUM 0.5 INH SOL 3 ML VIAL.NEB. NEB PRN (06:26)
[2022-12-13] MEDS ORDERED: chlordiazePOXIDE HCL 25 MG CAPSULE PO PRN (06:37)
[2022-12-13 06:49] LABS: PHENCYCLIDINE,URINE NEGATIVE (NEGATIVE)
[2022-12-13 06:55] LABS: COCAINE, UR NEGATIVE (NEGATIVE); METHADONE, UR NEGATIVE (NEGATIVE); OPIATES, URI NEGATIVE (NEGATIVE); URINE AMPHETAMINES NEGATIVE (NEGATIVE); URINE BARBITURATES NEGATIVE (NEGATIVE); URINE BENZODIAZEPINES POSITIVE (NEGATIVE)
[2022-12-13] MEDS: methylPREDNISolone NA SUCC 40 MG/1 ML VIAL IVPUSH SCH ×5 (07:20→18:04)
[2022-12-13 08:20] VITALS: BMI 20.9
[2022-12-13] MEDS: FOLIC ACID 1 MG TABLET (FP) PO SCH (09:41)
[2022-12-13] MEDS: EMTRICITAB/RILPIVIRI/TENOF ALA (ODEFSEY) TABLET PO SCH (09:42)
[2022-12-13] MEDS: THIAMINE HCL 100 MG TABLET (FP) PO SCH (09:42)
[2022-12-13] MEDS ORDERED: AZITHROMYCIN IVPB 500 MG/250 ML BAG IVPB SCH (10:00)
[2022-12-13] MEDS ORDERED: CEFTRIAXONE 1 GM in DEXTROSE 5%-WATER - 50 ML IVPB SCH (10:00)
[2022-12-13] MEDS ORDERED: BUDESONIDE/FORMETEROL FUMARATE 160/4.5 mcg INHALER IH SCH (10:00)
[2022-12-13] MEDS: NICOTINE 21 MG/24 HOURS TOPICAL PATCH TD SCH (10:15)
[2022-12-13] MEDS: ENOXAPARIN NA (PORCINE) 40 MG/0.4 ML DISP.SYRIN SQ SCH (10:15)
[2022-12-13 10:28] LABS: IRON SERUM 59 ug/dL (50-175)
[2022-12-13 10:29] LABS: TOTAL IRON BINDING CAPACITY 380 ug/dL (250-450)
[2022-12-13] MEDS: chlordiazePOXIDE HCL 25 MG CAPSULE PO SCH ×3 (10:54→22:07)
[2022-12-13] MEDS: ACETAMINOPHEN 1000 MG/100 ML BAG IVPB PRN ×2 (13:42→20:15)
[2022-12-13] MEDS ORDERED: MONTELUKAST NA 10 MG TABLET PO SCH (22:00)
[2022-12-14] MEDS: ALBUTEROL SO4 2.5/IPRATROPIUM 0.5 INH SOL 3 ML VIAL.NEB. NEB SCH ×5 (00:55→20:54)
[2022-12-14] MEDS: methylPREDNISolone NA SUCC 40 MG/1 ML VIAL IVPUSH SCH ×2 (02:48→10:07)
[2022-12-14] MEDS: chlordiazePOXIDE HCL 25 MG CAPSULE PO SCH ×4 (07:25→22:51)
[2022-12-14] MEDS ORDERED: FLUTICASONE/UMECLIDIN/VILANTER(100-62.5-25 TRELEGY ELLIPTA) INAHLER IH SCH (10:00)
[2022-12-14] MEDS: NICOTINE 21 MG/24 HOURS TOPICAL PATCH TD SCH (10:07)
[2022-12-14] MEDS: EMTRICITAB/RILPIVIRI/TENOF ALA (ODEFSEY) TABLET PO SCH (10:07)
[2022-12-14] MEDS: ENOXAPARIN NA (PORCINE) 40 MG/0.4 ML DISP.SYRIN SQ SCH (10:07)
[2022-12-14] MEDS: FOLIC ACID 1 MG TABLET (FP) PO SCH (10:07)
[2022-12-14] MEDS: THIAMINE HCL 100 MG TABLET (FP) PO SCH (10:08)
[2022-12-14 11:11] LABS: HEMATOCRIT 35.5 % (35.4-49); HEMOGLOBIN 11.1 GM/dL (11.7-16.9); MCH 25.6 pg (25.7-33.7); MCHC 31.2 g/dl (32.0-35.9); MEAN CELL VOLUME 82.1 fl (80-96); MEAN PLT VOLUME 7.7 fl (7.5-11.1); PLATELET COUNT 278 10^3/uL (134-434); RBC 4.32 M/mm3 (4.00-5.60); RDW 21.5 % (11.9-15.9); WHITE BLOOD COUNT 11.2 K/mm3 (4.0-10.0)
[2022-12-14 11:42] LABS: ANISOCYTOSIS 2+; MACROCYTOSIS 0
[2022-12-14 11:50] LABS: CALCIUM 9.6 mg/dL (8.5-10.1)
[2022-12-14 11:51] LABS: ALBUMIN 3.5 g/dl (3.4-5.0); BLOOD UREA NITROGEN 17.5 mg/dL (7-18); MAGNESIUM 1.6 mg/dL (1.8-2.4)
[2022-12-14 11:54] LABS: CREATININE 0.9 mg/dL (0.55-1.3); PHOSPHOROUS 1.7 mg/dL (2.5-4.9)
[2022-12-14 11:55] LABS: BILIRUBIN,TOTAL 0.2 mg/dL (0.2-1); TOT PROT 7.2 g/dl (6.4-8.2)
[2022-12-14] MEDS ORDERED: chlordiazePOXIDE HCL 25 MG CAPSULE PO PRN (13:30)
[2022-12-14] MEDS ORDERED: ALBUTEROL SO4 HFA INHALER IH SCH (13:30)
[2022-12-14] MEDS ORDERED: ACETAMINOPHEN 325 MG TABLET (FP) PO PRN (15:25)
[2022-12-14] MEDS: ACETAMINOPHEN 325 MG TABLET (FP) PO PRN (16:10)
[2022-12-14] MEDS: LORazepam 1 MG TABLET PO PRN (21:41)
[2022-12-14] MEDS: MONTELUKAST NA 10 MG TABLET PO SCH (21:42)
[2022-12-15] MEDS: ALBUTEROL SO4 2.5/IPRATROPIUM 0.5 INH SOL 3 ML VIAL.NEB. NEB SCH ×7 (00:04→23:42)
[2022-12-15] MEDS: chlordiazePOXIDE HCL 25 MG CAPSULE PO SCH ×4 (04:24→22:29)
[2022-12-15] MEDS ORDERED: chlordiazePOXIDE HCL 25 MG CAPSULE PO SCH (05:00)
[2022-12-15] MEDS: ACETAMINOPHEN 325 MG TABLET (FP) PO PRN (07:41)
[2022-12-15] MEDS: LORazepam 1 MG TABLET PO PRN ×2 (07:42→15:35)
[2022-12-15] MEDS ORDERED: MAGNESIUM 2GM/50ML STERILE WATER IVPB IVPB ONE (08:13)
[2022-12-15] MEDS ORDERED: NAPH,MB-DB/K PH,MBDB POWDER PACKET PO ONE ×2 (08:14→17:55)
[2022-12-15] MEDS ORDERED: MAGNESIUM OXIDE 400 MG TABLET (FP) PO ONE ×2 (09:16→18:12)
[2022-12-15] MEDS ORDERED: ALBUTEROL SO4 HFA INHALER IH PRN (09:46)
[2022-12-15 09:59] LABS: HEMOGLOBIN 10.5 GM/dL (11.7-16.9); LYMPH % 10.9 % (8-40); MCH 25.5 pg (25.7-33.7); MCHC 30.7 g/dl (32.0-35.9); MEAN CELL VOLUME 82.8 fl (80-96); MEAN PLT VOLUME 7.5 fl (7.5-11.1); MONO % 6.2 % (3.8-10.2); NEUT % 82.9 % (42.8-82.8); PLATELET COUNT 264 10^3/uL (134-434); RDW 21.1 % (11.9-15.9); WHITE BLOOD COUNT 12.9 K/mm3 (4.0-10.0)
[2022-12-15] MEDS ORDERED: predniSONE 20 MG TABLET (UD) PO SCH (10:00)
[2022-12-15] MEDS: ENOXAPARIN NA (PORCINE) 40 MG/0.4 ML DISP.SYRIN SQ SCH (10:03)
[2022-12-15] MEDS: FOLIC ACID 1 MG TABLET (FP) PO SCH (10:03)
[2022-12-15] MEDS: NICOTINE 21 MG/24 HOURS TOPICAL PATCH TD SCH (10:03)
[2022-12-15] MEDS: THIAMINE HCL 100 MG TABLET (FP) PO SCH (10:03)
[2022-12-15] MEDS: EMTRICITAB/RILPIVIRI/TENOF ALA (ODEFSEY) TABLET PO SCH (10:04)
[2022-12-15 10:45] LABS: ALBUMIN 3.2 g/dl (3.4-5.0); BLOOD UREA NITROGEN 21.3 mg/dL (7-18); CALCIUM 9.1 mg/dL (8.5-10.1); MAGNESIUM 1.6 mg/dL (1.8-2.4)
[2022-12-15 10:49] LABS: BILIRUBIN,TOTAL 0.2 mg/dL (0.2-1); CREATININE 0.9 mg/dL (0.55-1.3); PHOSPHOROUS 2.6 mg/dL (2.5-4.9); TOT PROT 6.6 g/dl (6.4-8.2)
[2022-12-15] MEDS: PANTOPRAZOLE 40 MG TABLET PO SCH (11:45)
[2022-12-15] MEDS: FLUTICASONE/UMECLIDIN/VILANTER(100-62.5-25 TRELEGY ELLIPTA) INAHLER IH SCH (15:19)
[2022-12-15] MEDS: predniSONE 20 MG TABLET (UD) PO SCH (22:03)
[2022-12-15] MEDS: MONTELUKAST NA 10 MG TABLET PO SCH (22:03)
[2022-12-16] MEDS ORDERED: chlordiazePOXIDE HCL 10 MG CAPSULE PO PRN ×2
[2022-12-16] MEDS: ALBUTEROL SO4 2.5/IPRATROPIUM 0.5 INH SOL 3 ML VIAL.NEB. NEB SCH ×3 (03:30→20:45)
[2022-12-16] MEDS ORDERED: chlordiazePOXIDE HCL 10 MG CAPSULE PO SCH (05:00)
[2022-12-16] MEDS: chlordiazePOXIDE HCL 10 MG CAPSULE PO SCH ×4 (06:29→22:02)
[2022-12-16 09:21] LABS: HEMATOCRIT 33.4 % (35.4-49); HEMOGLOBIN 10.3 GM/dL (11.7-16.9); MCH 25.5 pg (25.7-33.7); MCHC 30.7 g/dl (32.0-35.9); MEAN PLT VOLUME 7.5 fl (7.5-11.1); PLATELET COUNT 255 10^3/uL (134-434); RBC 4.02 M/mm3 (4.00-5.60); RDW 20.7 % (11.9-15.9); WHITE BLOOD COUNT 13.1 K/mm3 (4.0-10.0)
[2022-12-16] MEDS: predniSONE 20 MG TABLET (UD) PO SCH (10:01)
[2022-12-16] MEDS: FOLIC ACID 1 MG TABLET (FP) PO SCH (10:01)
[2022-12-16] MEDS: EMTRICITAB/RILPIVIRI/TENOF ALA (ODEFSEY) TABLET PO SCH (10:02)
[2022-12-16] MEDS: FLUTICASONE/UMECLIDIN/VILANTER(100-62.5-25 TRELEGY ELLIPTA) INAHLER IH SCH (10:03)
[2022-12-16] MEDS: PANTOPRAZOLE 40 MG TABLET PO SCH (10:03)
[2022-12-16] MEDS: THIAMINE HCL 100 MG TABLET (FP) PO SCH (10:03)
[2022-12-16] MEDS: ENOXAPARIN NA (PORCINE) 40 MG/0.4 ML DISP.SYRIN SQ SCH (10:03)
[2022-12-16] MEDS: NICOTINE 21 MG/24 HOURS TOPICAL PATCH TD SCH (10:03)
[2022-12-16 10:25] LABS: ALBUMIN 3.2 g/dl (3.4-5.0); BLOOD UREA NITROGEN 23.5 mg/dL (7-18); PHOSPHOROUS 2.8 mg/dL (2.5-4.9)
[2022-12-16 10:27] LABS: BILIRUBIN,TOTAL 0.3 mg/dL (0.2-1); CALCIUM 9.1 mg/dL (8.5-10.1); CREATININE 0.9 mg/dL (0.55-1.3); MAGNESIUM 1.7 mg/dL (1.8-2.4); TOT PROT 6.3 g/dl (6.4-8.2)
[2022-12-16 10:35] LABS: ANISOCYTOSIS 2+; MACROCYTOSIS 0
[2022-12-16 11:43] VITALS: RESP 20
[2022-12-16] MEDS: GABAPENTIN 300 MG CAPSULE PO SCH ×2 (14:11→21:25)
[2022-12-16] MEDS: SULFAMETHOXAZOLE/TRIMETHOPRIM 800MG/160MG D.S. TABLET PO SCH (14:11)
[2022-12-16] MEDS ORDERED: MAGNESIUM OXIDE 400 MG TABLET (FP) PO ONE (15:31)
[2022-12-16] MEDS: ACETAMINOPHEN 325 MG TABLET (FP) PO PRN (18:33)
[2022-12-16] MEDS: MONTELUKAST NA 10 MG TABLET PO SCH (21:25)
[2022-12-17] MEDS: LORazepam 1 MG TABLET PO PRN ×2 (02:22→09:54)
[2022-12-17] MEDS ORDERED: chlordiazePOXIDE HCL 10 MG CAPSULE PO SCH ×2 (05:00)
[2022-12-17] MEDS: GABAPENTIN 300 MG CAPSULE PO SCH ×2 (05:53→14:02)
[2022-12-17] MEDS: ALBUTEROL SO4 2.5/IPRATROPIUM 0.5 INH SOL 3 ML VIAL.NEB. NEB SCH ×3 (08:25→15:46)
[2022-12-17 08:50] LABS: BASO % 0.1 % (0-2.0); EOS % 0.2 % (0-4.5); HEMOGLOBIN 10.7 GM/dL (11.7-16.9); LYMPH % 9.6 % (8-40); MCH 25.5 pg (25.7-33.7); MCHC 30.7 g/dl (32.0-35.9); MEAN CELL VOLUME 83.1 fl (80-96); MEAN PLT VOLUME 7.4 fl (7.5-11.1); MONO % 4.1 % (3.8-10.2); PLATELET COUNT 272 10^3/uL (134-434); RBC 4.22 M/mm3 (4.00-5.60); RDW 21.1 % (11.9-15.9); WHITE BLOOD COUNT 15.5 K/mm3 (4.0-10.0)
[2022-12-17 09:19] LABS: ALBUMIN 3.2 g/dl (3.4-5.0); BLOOD UREA NITROGEN 24.9 mg/dL (7-18); CALCIUM 9.4 mg/dL (8.5-10.1)
[2022-12-17 09:20] LABS: MAGNESIUM 1.8 mg/dL (1.8-2.4)
[2022-12-17 09:21] LABS: TOT PROT 6.3 g/dl (6.4-8.2)
[2022-12-17 09:22] LABS: PHOSPHOROUS 3.8 mg/dL (2.5-4.9)
[2022-12-17 09:24] LABS: BILIRUBIN,TOTAL 0.4 mg/dL (0.2-1)
[2022-12-17] MEDS: THIAMINE HCL 100 MG TABLET (FP) PO SCH (09:29)
[2022-12-17] MEDS: FOLIC ACID 1 MG TABLET (FP) PO SCH (09:29)
[2022-12-17] MEDS: PANTOPRAZOLE 40 MG TABLET PO SCH (09:29)
[2022-12-17] MEDS: SULFAMETHOXAZOLE/TRIMETHOPRIM 800MG/160MG D.S. TABLET PO SCH (09:29)
[2022-12-17] MEDS: NICOTINE 21 MG/24 HOURS TOPICAL PATCH TD SCH (09:30)
[2022-12-17] MEDS: ENOXAPARIN NA (PORCINE) 40 MG/0.4 ML DISP.SYRIN SQ SCH (09:30)
[2022-12-17] MEDS: EMTRICITAB/RILPIVIRI/TENOF ALA (ODEFSEY) TABLET PO SCH (09:55)
[2022-12-17] MEDS: FLUTICASONE/UMECLIDIN/VILANTER(100-62.5-25 TRELEGY ELLIPTA) INAHLER IH SCH (09:57)
[2022-12-17] MEDS ORDERED: predniSONE 20 MG TABLET (UD) PO SCH (10:00)
[2022-12-17 14:25] VITALS: BP 120/83; PULSE 103; TEMP 97.8
[2022-12-18] MEDS ORDERED: chlordiazePOXIDE HCL 10 MG CAPSULE PO ONE ×2 (05:00)
== END 2022-12-17 16:49 | disposition home or self-care (01) | DRG 191 ==
LOC: JER 22:01 → JERBED 12-13 00:33 → J4W 12-13 06:43 → J6S 12-14 13:40
PROVIDERS: ADMIT Internal Medicine; ATTEND Internal Medicine
DX: J44.1 Chronic obstructive pulmonary disease with (acute) exacerbation (principal); B20 Human immunodeficiency virus [HIV] disease; J45.901 Unspecified asthma with (acute) exacerbation; F10.230 Alcohol dependence with withdrawal, uncomplicated; F17.210 Nicotine dependence, cigarettes, uncomplicated; D50.9 Iron deficiency anemia, unspecified; E83.42 Hypomagnesemia
CPT/HCPCS: 0241U-QW; 36415; 71045-TC-FY; 80048; 80053; 80307; 81003; 82728; 82803; 83540; 83550; 83605; 83735; 83880; 84100; 84484; 85025; 85610; 85730; 86359; 86360; 86850; 86900; 86901; 87040; 87086; 87536; 87899; 93005; 93010; 94640; 94761; 99285-25; J1100